=== PATIENT | male | born 1935 | race Caucasian/White ===

== ENCOUNTER 2018-03-17 09:03 | Outpatient (CLI) | payer MEDICARE ==
[2018-03-17 18:09] LABS: ALBUMIN/GLOBULIN RATIO 1.6 (1.0-2.2); BASOPHILS # (AUTO) 0.1 10^3/uL (0.0-0.1); BASOPHILS % (AUTO) 1.1 %; BILIRUBIN,TOTAL 0.7 mg/dL (0.2-1.0); CALCIUM 9.2 mg/dL (8.5-10.3); CREATININE 1.2 mg/dL (0.6-1.2); EOSINOPHILS # (AUTO) 0.3 10^3/uL (0.0-0.7); EOSINOPHILS % (AUTO) 3.6 %; HGB - HEMOGLOBIN 13.5 g/dL (14.0-18.0); LYMPHOCYTES # (AUTO) 1.6 10^3/uL (1.5-3.5); MEAN CORPUSCULAR HEMOGLOBIN 31.6 pg (27.0-31.0); MEAN CORPUSCULAR HGB CONC 32.7 g/dL (32.0-36.0); MEAN CORPUSCULAR VOLUME 96.9 fL (80.0-94.0); MEAN PLATELET VOLUME 8.5 fL (7.4-11.4); MONOCYTES # (AUTO) 0.8 10^3/uL (0.0-1.0); NEUTROPHILS # (AUTO) 4.3 10^3/uL (1.5-6.6); NEUTROPHILS % (AUTO) 61.3 %; PLT - PLATELET COUNT 165 10^3/uL (130-450); RED BLOOD COUNT 4.26 10^6/uL (4.70-6.10); TOTAL PROTEIN 6.5 g/dL (6.7-8.2); WHITE BLOOD COUNT 7.1 x10^3/uL (4.8-10.8)
== END 2018-03-17 09:04 | disposition home or self-care (01) ==
LOC: LAB.F 09:03
PROVIDERS: ATTEND Family Medicine
DX: I10 Essential (primary) hypertension (principal); Z12.5 Encounter for screening for malignant neoplasm of prostate
CPT/HCPCS: 36415; 80053; 85025; G0103; 84153

== ENCOUNTER 2018-07-30 09:39 | Emergency (ER) | payer MEDICARE ==
[2018-07-30 10:00] VITALS: BP 128/78
[2018-07-30] MEDS ORDERED: IBUPROFEN 800 MG TABLET PO STA (10:14)
--- NOTE | 2018-07-30 10:51 | XRAY Report ---
Reason: pain and swelling right foot. Procedure Date: 07/30/2018 Accession Number: [id number] / [id number] Procedure: XR - Foot 3 View RT CPT Code: FULL RESULT: EXAM: RIGHT FOOT RADIOGRAPHY EXAM DATE: 07/30/2018 10:29 AM. CLINICAL HISTORY: Pain and swelling right foot. Pain x1 year located primarily in the area of bunion. COMPARISON: None. TECHNIQUE: 3 nonweightbearing views. FINDINGS: Joints: There are severe degenerative changes at the first, second, third, and fourth tarsal phalangeal joints. There is extensive subchondral sclerosis and moderate marginal osteophyte formation at the first metatarsophalangeal joint. Subchondral cyst formation is present. There is hallux valgus angulation at the first metatarsophalangeal joint. There are mild degenerative changes of the interphalangeal joint of the great toe. There is flexion deformity of the fourth toe. Bones: Diffusely demineralized. No fracture visualized. No destructive lytic lesion. There is chronic appearing resorption or postsurgical change at the head of the third metatarsal. Soft Tissues: There is soft tissue swelling adjacent to the first metatarsophalangeal joint. No soft tissue gas. IMPRESSION: 1. Chronic-appearing severe degenerative changes at the first, second, third, and fourth metatarsophalangeal joints. There is hallux valgus alignment of the first metatarsophalangeal joint. 2. No fracture or destructive lytic lesion visualized. 3. Hallux valgus alignment at the first metatarsophalangeal joint. 4. There is soft tissue swelling adjacent to the first metatarsophalangeal joint. No soft tissue gas. RADIA
--- NOTE | 2018-07-30 11:11 | ED Physician Documentation ---
PD HPI LOWER EXT INJURY - Stated complaint Stated Complaint: RT FOOT PX/SWOLLEN - Chief complaint Chief Complaint: Ext Problem - History obtained from History obtained from: Patient, Family (spouse) - History of Present Illness PD HPI LOW EXT INJURY LOCATION: Right, Foot Timing - onset: Yesterday Worsened by: Moving, Palpating, Other (weightbearing) Associated symptoms: Swelling Similar symptoms before: Diagnosis (History of similar symptoms in the past with gout.) - Additional information Additional information: The patient is an 83-year-old male with history of gout, who presents with pain in his right great toe. The pain started yesterday and persists today. He reports difficulty weightbearing because of the pain. He has noticed swelling of his right foot. He denies any recent injury. He denies fever. His last gouty flareup was more than 10 years ago. The patient has dementia, and history is obtained mostly from his . Review of Systems Constitutional: denies: Fever Respiratory: denies: Dyspnea Skin: denies: Rash Musculoskeletal: reports: Extremity pain (Right great toe.), Pain with weight bearing Neurologic: denies: Focal weakness, Numbness PD PAST MEDICAL HISTORY - Past Medical History Past Medical History: Yes Cardiovascular: Hypertension Respiratory: Other Endocrine/Autoimmune: None GI: None : Other HEENT: Chronic hearing loss Psych: Anxiety Musculoskeletal: None, Gout Derm: Other Other Past Medical History: Bronchitis, Over active bladder - Past Surgical History Past Surgical History: Yes - Present Medications Home Medications: Ambulatory Orders Medication Instructions Recorded Confirmed Citalopram Hydrobromide 40 mg PO DAILY 12/20/15 07/30/18 [Citalopram HBr] Acetaminophen 1,000 mg PO TID PRN 12/24/15 07/30/18 Ibuprofen 200 mg PO DAILY 12/24/15 07/30/18 Mometasone/Formoterol [Dulera 100 2 puffs INH BID 12/24/15 07/30/18 Mcg/5 Mcg Inhaler] Tamsulosin [Flomax] 0.4 mg PO BID 12/24/15 07/30/18 Tolterodine Tartrate [Detrol LA] 4 mg PO DAILY 12/24/15 07/30/18 Carvedilol 1 tab PO DAILY 07/30/18 07/30/18 Naproxen [Naprosyn] 500 mg PO BID #30 tablet 07/30/18 Clindamycin HCl [Clindamycin 300MG 300 mg PO Q6H #40 capsule 07/31/18 CAP] Hydrocodone/Acetaminophen 1 - 2 each PO Q6H PRN #14 tablet 07/31/18 [Hydrocodon-Acetaminophen 5-325] - Allergies Allergies/Adverse Reactions: Allergies Allergy/AdvReac Type Severity Reaction Status Date / Time No Known Drug Allergies Allergy Verified 07/31/18 12:18 - Social History Does the pt smoke?: No Smoking Status: Never smoker Does the pt drink ETOH?: No Does the pt have substance abuse?: No - Immunizations Immunizations are current?: No Immunizations: TDAP >10years/unknown, Other immun current - POLST Patient has POLST: No PD ED PE NORMAL - Vitals Vital signs reviewed: Yes (normal) - General General: Well developed/nourished, Other (Alert, and mildly confused, consistent with dementia.) - HEENT HEENT: Atraumatic - Respiratory Respiratory: No respiratory distress - Derm Derm: No rash - Extremities Extremities: No edema, No calf tenderness / cord, Other (There is a callus at the medial aspect of the right foot at the base of the great toe. There is minimal erythema, and very slight warmth to palpation. There is tenderness to palpation, as well as tenderness with flexion and extension of the great toe. Distal neurovascular is intact.) - Neuro Neuro: Normal speech, Other (Alert, oriented 2, with mild confusion consistent with dementia.) Results - Vitals Vitals: Oxygen O2 Source Room air - Rads (name of study) Right foot. Radiology: Prelim report reviewed, EMP read contemporaneously, See rad report (Chronic appearing severe degenerative changes at the first, second, third, and fourth metatarsophalangeal joints. There is hallux valgus alignment of the first metatarsophalangeal joint. No fracture or destructive lytic lesion visualized. There is soft tissue swelling adjacent to the first me tatarsophalangeal joint. No soft tissue gas.) PD MEDICAL DECISION MAKING - ED course Complexity details: reviewed results, re-evaluated patient, considered differential, d/w patient, d/w family ED course: The patient's presentation is most consistent with gouty arthritis. X-ray reveals no evidence of acute osseous abnormality. There is a callous noted at the medial aspect of the MTP joint, but it does not appear to be infected. Treatment in the emergency department included administration of ibuprofen 800 mg orally. He is being discharged with a prescription for Naprosyn. I discussed with him and his the likely diagnosis, symptomatic treatment and outpatient follow-up, as well as potentially worrisome signs or symptoms that should prompt reevaluation in the emergency department. - Sepsis Event Vital Signs: Oxygen O2 Source Room air Departure - Departure Disposition: Home, Self Care Clinical Impression: Gout attack Qualifiers: Gout site: foot Gout etiology: unspecified cause Laterality: right Qualified Code(s): M10.9 - Gout, unspecified Condition: Stable Instructions: ED Arthritis Gout Follow-Up: Johanny Chapin PA-C [Primary Care Provider] - Prescriptions: Naproxen [Naprosyn] 500 mg PO BID #30 tablet Comments: Keep your right foot elevated as much of the time as possible. Take Naprosyn twice daily as prescribed. Follow up with your primary physician within 1-2 weeks. Call to schedule an appointment. Return to the emergency department if increasing pain, redness, swelling of your foot, or otherwise worsening symptoms. Discharge Date/Time: 07/30/18 11:23
== END 2018-07-30 11:23 | disposition home or self-care (01) ==
LOC: ED 09:39
DX: M10.9 Gout, unspecified (principal); I10 Essential (primary) hypertension; L84 Corns and callosities; M20.11 Hallux valgus (acquired), right foot
CPT/HCPCS: 73630; 99283; A9270

== ENCOUNTER 2018-07-31 12:02 | Emergency (ER) | payer MEDICARE ==
[2018-07-31] MEDS ORDERED: cefTRIAXone 1 GM VIAL IM STA (13:14)
[2018-07-31] MEDS ORDERED: HYDROcod/ACETAM 5/325 MG TABLET PO STA (13:15)
[2018-07-31] MEDS ORDERED: LIDOCAINE 1% 2 ML VIAL SUBQ ONE (13:15)
--- NOTE | 2018-07-31 13:19 | ED Physician Documentation ---
History of Present Illness - Stated complaint Stated Complaint: R FOOT WOUND - Chief complaint Chief Complaint: Ext Problem - History obtained from History obtained from: Patient, Family - History of Present Illness Timing: How many days ago (several) Pain level max: 7 Pain level now: 6 - Additonal information Additional information: Patient is an 83-year-old male who presents to the emergency department with right foot pain and swelling for the past several days. Seen here yesterday and diagnosed with possible gout. States that today a portion of the swelling ruptured and pus drained. Denies any fevers or chills. No vomiting. Has not been on any antibiotics. Worse with walking and better with rest Review of Systems Constitutional: denies: Fever, Chills Ears: denies: Ear pain Nose: denies: Rhinorrhea / runny nose, Congestion Cardiac: denies: Chest pain / pressure Respiratory: denies: Cough GI: denies: Abdominal Pain, Nausea, Vomiting, Diarrhea Skin: denies: Rash Musculoskeletal: denies: Neck pain, Back pain Neurologic: denies: Headache PD PAST MEDICAL HISTORY - Past Medical History Cardiovascular: Hypertension Respiratory: Other Endocrine/Autoimmune: None GI: None : Other HEENT: Chronic hearing loss Psych: Anxiety Musculoskeletal: None Derm: Other - Past Surgical History Past Surgical History: Yes - Present Medications Home Medications: Ambulatory Orders Medication Instructions Recorded Confirmed Citalopram Hydrobromide 40 mg PO DAILY 12/20/15 07/30/18 [Citalopram HBr] Acetaminophen 1,000 mg PO TID PRN 12/24/15 07/30/18 Ibuprofen 200 mg PO DAILY 12/24/15 07/30/18 Mometasone/Formoterol [Dulera 100 2 puffs INH BID 12/24/15 07/30/18 Mcg/5 Mcg Inhaler] Tamsulosin [Flomax] 0.4 mg PO BID 12/24/15 07/30/18 Tolterodine Tartrate [Detrol LA] 4 mg PO DAILY 12/24/15 07/30/18 Carvedilol 1 tab PO DAILY 07/30/18 07/30/18 Naproxen [Naprosyn] 500 mg PO BID #30 tablet 07/30/18 Clindamycin HCl [Clindamycin 300MG 300 mg PO Q6H #40 capsule 07/31/18 CAP] Hydrocodone/Acetaminophen 1 - 2 each PO Q6H PRN #14 tablet 07/31/18 [Hydrocodon-Acetaminophen 5-325] - Allergies Allergies/Adverse Reactions: Allergies Allergy/AdvReac Type Severity Reaction Status Date / Time No Known Drug Allergies Allergy Verified 07/31/18 12:18 - Social History Does the pt smoke?: No Smoking Status: Never smoker Does the pt drink ETOH?: No Does the pt have substance abuse?: No - Immunizations Immunizations are current?: No Immunizations: TDAP >10years/unknown - POLST Patient has POLST: No PD ED PE NORMAL - Vitals Vital signs reviewed: Yes - General General: Alert and oriented X 3, No acute distress - HEENT HEENT: Moist mucous membranes - Neck Neck: Supple, no meningeal sign - Cardiac Cardiac: RRR - Respiratory Respiratory: No respiratory distress, Clear bilaterally - Derm Derm: Warm and dry - Extremities Extremities: Other (small abscess to the medial aspect of the R MTP joint, swelling and erythema over the dorsum of the foot to the ankle. NVI) - Neuro Neuro: Alert and oriented X 3 - Psych Psych: Normal mood, Normal affect Results - Vitals Vitals: Vital Signs - 24 hr 07/31/18 07/31/18 12:07 13:41 Temperature 37 C Heart Rate 61 67 Respiratory 18 16 Rate Blood Pressure 110/62 127/67 O2 Saturation 97 99 Oxygen O2 Source Room air - Labs Labs: Microbiology 07/31/18 13:01 Wound Culture - Preliminary Abscess PD MEDICAL DECISION MAKING - ED course Complexity details: reviewed old records, considered differential, d/w patient, d/w family ED course: Patient is an 83-year-old male with what appears to be an abscess and cellulitis to the first MTP of the foot. This spontaneously drained.. Given Rocephin here and will place on clindamycin for home. No fevers. No evidence of sepsis. Given a postoperative shoe and he chose crutches to help him ambulate. Also prescribe pain medication for home. Patient and family counseled regarding signs and symptoms for which I believe and urgent re-evaluation would be necessary. Patient with good understanding of and agreement to plan and is comfortable going home at this time This document was made in part using voice recognition software. While efforts are made to proofread this document, sound alike and grammatical errors may occur. - Sepsis Event Vital Signs: Vital Signs - 24 hr 07/31/18 07/31/18 12:07 13:41 Temperature 37 C Heart Rate 61 67 Respiratory 18 16 Rate Blood Pressure 110/62 127/67 O2 Saturation 97 99 Oxygen O2 Source Room air Departure - Departure Disposition: 01 Home, Self Care Clinical Impression: Abscess Cellulitis Qualifiers: Site of cellulitis: extremity Site of cellulitis of extremity: lower extremity Laterality: right Qualified Code(s): L03.115 - Cellulitis of right lower limb Condition: Good Instructions: ED Infec Skin Cellulitis Follow-Up: Johanny Chapin PA-C [Primary Care Provider] - Within 3 Days (for wound check) Prescriptions: Clindamycin HCl [Clindamycin 300MG CAP] 300 mg PO Q6H #40 capsule Hydrocodone/Acetaminophen [Hydrocodon-Acetaminophen 5-325] 1 - 2 each PO Q6H PRN #14 tablet PRN Reason: pain Comments: Take all antibiotics until gone. Return if you worsen. This should improve over the next 24 hours. Return especially for fevers or uncontrolled pain. Do not drink alcohol or drive while on narcotic pain medicine. Note that many narcotic pain relievers also contain tylenol/acetaminophen. Please ensure that your total dose of acetaminophen from all sources does not exceed 3 grams (3000mg) per day. You may constipated on this medication, take a stool softener such as "Colace" twice a day while you are on it. Also recommend a invg-eus-yfkoljh laxative such as senna or MiraLAX any day that you do not have a bowel movement. If you received narcotic pain medication in the emergency department, do not drive or operate machinery for the next 24 hours. Discharge Date/Time: 07/31/18 13:48
[2018-07-31 13:41] VITALS: BP 127/67
== END 2018-07-31 13:48 | disposition home or self-care (01) ==
LOC: ED 12:02
DX: L02.611 Cutaneous abscess of right foot (principal); L03.115 Cellulitis of right lower limb; I10 Essential (primary) hypertension
CPT/HCPCS: 87070; 87181; 87205; 96372; 99283; A9270

== ENCOUNTER 2018-08-27 12:14 | Outpatient (CLI) | payer MEDICARE ==
--- NOTE | 2018-08-27 14:23 | XRAY Report ---
Reason: CUTANEOUS ABSCESS OF RT FOOT,CELLULITIS Procedure Date: 08/27/2018 Accession Number: [id number] / [id number] Procedure: XR - Foot 3 View RT CPT Code: FULL RESULT: EXAM: RIGHT FOOT RADIOGRAPHY EXAM DATE: 08/27/2018 12:36 PM. CLINICAL HISTORY: Cutaneous abscess of right foot, cellulitis. COMPARISON: FOOT 3 VIEW RT 07/30/2018 10:19 AM. TECHNIQUE: 3 views. FINDINGS: Redemonstration of subluxed fourth distal phalanx, unchanged in configuration interval osseous destruction at the first metatarsophalangeal joint superimposed on pre-existing advanced degenerative changes. If there is clinical concern for osteomyelitis/infection in this region, these findings are suspicious given adjacent soft tissue swelling. No acute fracture or dislocation is identified. Deformed second and fourth metatarsal heads are likely posttraumatic and unchanged in appearance. IMPRESSION: Suspicious osseous destruction in the first metatarsophalangeal joint with overlying soft tissue swelling. RADIA The above findings of periosteal reaction and osseous destruction in the region of the first metatarsophalangeal joint concerning for osteomyelitis given the clinical scenario were discussed with Johanny Chapin by Dr. Lavell Caceres at 14:20 hrs on 08/27/18.
== END 2018-08-27 12:15 | disposition home or self-care (01) ==
LOC: DI 12:14
PROVIDERS: ATTEND Physician Assistant Medical
DX: M89.8X7 Other specified disorders of bone, ankle and foot (principal); L02.611 Cutaneous abscess of right foot; L03.90 Cellulitis, unspecified

== ENCOUNTER 2018-09-07 08:30 | Inpatient (IN) | payer MEDICARE ==
[~2018-09-07 08:30] MED LIST: ACETAMINOPHEN 1,000 MG/100 ML 100 ML IV ONE; VANCOMYCIN 1 GM VIAL ONE
--- NOTE | 2018-09-07 09:21 | ANESTHESIA ---
Pre-Anesthesia VS, & Labs - Diagnosis right foot bone infection - Procedure right great toe amputation Vital Signs: Temp Pulse Resp BP Pulse Ox 36.3 C L 63 16 144/62 H 100 09/07/18 08:39 09/07/18 08:39 09/07/18 08:39 09/07/18 08:39 09/07/18 08:39 Height 5 ft 11 in Weight (kg) 95.2 kg Body Mass Index 28.7 - NPO >8 hours (except black coffee at 5:30) Home Medications and Allergies Home Medications: Ambulatory Orders Aspirin [Adult Aspirin] 81 mg PO DAILY 09/03/18 Calcium Carbonate/Vitamin D3 [Calcium 500 mg-Vit D3 600 Unit] 1 each PO BID 09/03/18 Finasteride 5 mg PO DAILY 09/03/18 Guaifenesin/Pseudoephedrne HCl [Mucinex D ER 600-60 mg Tablet] 1 each PO DAILY 09/03/18 Lactobacillus Acidophilus [Probiotic Acidophilus] 1 each PO DAILY 09/03/18 Metronidazole [Metrocream] 45 gm TP PRN PRN 09/03/18 Sulfamethox/Trimeth 800/160 [Bactrim Ds 800/160] 1 each PO Q6HR 09/03/18 Citalopram Hydrobromide [Citalopram HBr] 40 mg PO DAILY 12/20/15 Acetaminophen 1,000 mg PO TID PRN 12/24/15 Tamsulosin [Flomax] 0.4 mg PO BID 12/24/15 Tolterodine Tartrate [Detrol LA] 4 mg PO DAILY 12/24/15 Carvedilol 1 tab PO DAILY 07/30/18 Aspirin [Adult Aspirin] 81 mg PO DAILY 09/03/18 Calcium Carbonate/Vitamin D3 [Calcium 500 mg-Vit D3 600 Unit] 1 each PO BID 09/03/18 Finasteride 5 mg PO DAILY 09/03/18 Guaifenesin/Pseudoephedrne HCl [Mucinex D ER 600-60 mg Tablet] 1 each PO DAILY 09/03/18 Lactobacillus Acidophilus [Probiotic Acidophilus] 1 each PO DAILY 09/03/18 Metronidazole [Metrocream] 45 gm TP PRN PRN 09/03/18 Sulfamethox/Trimeth 800/160 [Bactrim Ds 800/160] 1 each PO Q6HR 09/03/18 Allergies/Adverse Reactions: Allergies Allergy/AdvReac Type Severity Reaction Status Date / Time plaster cast material Allergy Rash Uncoded 09/03/18 12:57 Anes History & Medical History - Anesthetic History Anesthesia Complications: reports: No previous complications - Medical History Cardiovascular: reports: Hypertension, Arrhythmia, Other Pulmonary: reports: COPD Gastrointestinal: reports: None, GERD, C.difficile, Other Urinary: reports: Renal insuffiency Neuro: reports: Dementia, Peripheral neuropathy Musculoskeletal: reports: Gout Endocrine/Autoimmune: reports: None Blood Disorders: reports: None Skin: reports: None Smoking Status: Former smoker - Surgical History Orthopedic: Other (feet) Exam General: Alert Dental: WNL, Dentures full Upper, Dentures full Lower Mouth Openin Fingerbreadth Neck Mobility: Reduced Mallampati classification: II Thyromental Distance: 4-6 cm Respiratory: Lungs clear Cardiovascular: Regular rate Mental/Cognitive Status: Alert/Oriented X3 Cognitive Status: Within normal limits Plan Anesthesia Type: Other Block (ankle block) Consent for Procedure(s) Verified and Reviewed: Yes Code Status: Attempt Resuscitation ASA classification: 3-Severe systemic disease Is this case an emergency?: No
[2018-09-07] MEDS ORDERED: LIDOCAINE 1% 50 ML MDV ONE (10:21)
[2018-09-07] MEDS ORDERED: BUPIVACAINE 0.5% PF 30 ML VIAL ONE (10:22)
--- NOTE | 2018-09-07 10:56 | XRAY Report ---
Reason: PICC line Procedure Date: 09/07/2018 Accession Number: [id number] / [id number] Procedure: XR - Chest for Line Placement CPT Code: FULL RESULT: EXAM: Chest for Line Placement DATE: 09/07/2018 10:44 AM CLINICAL HISTORY: PICC line COMPARISON: 01/01/2016 TECHNIQUE: Single view of the chest. FINDINGS: Lungs/Pleura: No focal opacities evident. No pneumothorax or pleural effusion. Mediastinum: Within exam limitations, cardiomediastinal contour is normal. Calcification in the aortic arch. Other: Right PICC line ends at the cavoatrial junction. IMPRESSION: Clear lungs. Right PICC line ends at the cavoatrial junction. RADIA
[2018-09-07] MEDS ORDERED: KETAMINE 500 MG/10 ML VIAL IVP ONE (11:00)
[2018-09-07] MEDS ORDERED: LIDOCAINE-MPF 2% 5 ML VIAL IM ONE (11:00)
[2018-09-07] MEDS ORDERED: LACTATED RINGERS 1,000 ML IV ONE ×2 (11:00→11:51)
[2018-09-07] MEDS ORDERED: fentaNYL 100 MCG/2 ML VIAL IVP ONE (11:00)
[2018-09-07] MEDS ORDERED: PROPOFOL 200 MG/20 ML VIAL IVP ONE (11:00)
[2018-09-07] MEDS ORDERED: ROPIVACAINE 0.5% PF 20 ML AMPULE EP ONE (11:00)
[2018-09-07] MEDS ORDERED: MIDAZOLAM 2 MG/2 ML VIAL IVP ONE (11:00)
[2018-09-07] MEDS ORDERED: LIDOCAINE 1% 10 ML MDV SUBQ ONE ×2 (11:49)
[2018-09-07] MEDS ORDERED: BUPIVACAINE 0.5% PF 10 ML VIAL IM ONE ×2 (11:49)
[2018-09-07] MEDS ORDERED: fentaNYL 100 MCG/2 ML VIAL ONE (12:36)
[2018-09-07] MEDS ORDERED: ACETAMINOPHEN 500 MG TABLET PO PRN (13:00)
[2018-09-07] MEDS ORDERED: METRONIDAZOLE 45 GM TP PRN (13:00)
[2018-09-07] MEDS ORDERED: ONDANSETRON 4 MG/2 ML VIAL IVP PRN (13:01)
[2018-09-07] MEDS ORDERED: ACETAMINOPHEN 325 MG TABLET PO PRN (13:01)
[2018-09-07] MEDS ORDERED: PROCHLORPERAZINE 10 MG/2 ML VIAL IVP PRN (13:01)
[2018-09-07] MEDS ORDERED: HYDROmorphone 0.5 MG/0.5 ML SYRINGE IVP PRN (13:01)
[2018-09-07] MEDS ORDERED: BISACODYL 10 MG SUPP PR PRN (13:01)
[2018-09-07] MEDS ORDERED: SENNA 8.6 MG TABLET PO PRN (13:01)
--- NOTE | 2018-09-07 13:10 | OPERATIVE REPORT ---
Operative Report - General Admit Date: 09/07/18 Procedure Date: 09/07/18 Planned Procedure: amputation right great toe Pre-Op Diagnosis: infection right great toe, and osteomyelitis Procedure Performed: I&D of right great toe MTP joint, bone resection, sesamoidectomy Post Op Diagnosis: mostly gout destruction of great toe MTPjoint hx septic joint - Procedure Note Primary Surgeon: tisha Anesthesia Provider: Juan Anesthesia Technique: Local, MAC, Regional block Estimated Blood Loss (mL): 20
[2018-09-07] MEDS ORDERED: VANCOMYCIN INJ 500 MG in SODIUM CHLORIDE 0.9% MINIBAG 100 ML IV SCH (14:00)
[2018-09-07] MEDS: HYDROcod/ACETAM 5/325 MG TABLET PO PRN ×2 (14:21→18:13)
[2018-09-07] MEDS ORDERED: VANCOMYCIN PER PHARMACY IV SCH (15:00)
[2018-09-07] MEDS ORDERED: VANCOMYCIN INJ 2 GM in SODIUM CHLORIDE 0.9% 500 ML IV ONE ×2 (15:00→18:00)
[2018-09-07] MEDS ORDERED: SODIUM CHLORIDE 0.9% IV SCH (15:00)
[2018-09-07] MEDS: LACTATED RINGERS 1,000 ML IV SCH (16:58)
--- NOTE | 2018-09-07 17:28 | OPERATIVE REPORT ---
DATE OF SERVICE: 09/07/2018 Physician: Carol Dumont MD PREOPERATIVE DIAGNOSIS: Suspected right first metatarsal osteomyelitis and septic metatarsophalangeal joint. 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 PROCEDURE PERFORMED: Right foot arthrotomy of the first tarsometatarsal joint with debridement of the joint, resection of the proximal aspect of the proximal phalanx great toe, resection of part of the first metatarsal head and exostosis, and resection of sesamoids medial and lateral. OPERATING SURGEON: Carol Dumont MD ANESTHESIA: General by Britt Martinez. INDICATIONS FOR SURGERY: Patient is an 83-year-old male who had been seen in my office with what appeared to be a worsening infection of his right foot with an open sinus in communication of the joint of the first metatarsophalangeal joint and inflammation and an MRI that suggested erosive osteomyelitis and positive culture for MRSA. I recommended in the office that the patient undergo great toe amputation, and surgery was planned for as such. The surgery plan was changed when, in surgery on dressing removal, the patient's toe appeared significantly better with less swelling and significant closure of his wound with no purulent drainage. The wound is now half the size from the time he was booked into surgery, and this changed the operative plan. FINDINGS AT SURGERY: The patient's great toe wound had diminished in size to less than 5 mm with only serous drainage. On opening the joint, there was destruction of cartilage that appeared longstanding and there were gouty collections in the bone that literally scooped out of bone and tissue. There did appear some septic-appearing synovitis around the joint, but nothing dramatic in the bone tissue, which appeared healthy once it was debrided. At tourniquet deflation, the tissues were all actively bleeding and healthy appearing. DESCRIPTION OF OPERATIVE PROCEDURE: The patient was taken to the operating room. He had been given presurgery a regional block by Britt Martinez. At surgery, he was given an ankle block with Marcaine plain 0.25%. His dressings were removed, and he was sterilely prepped and draped in standard fashion. The foot was carefully inspected, and at this point the decision was made to refrain from amputation and try to save the great toe by a joint debridement and some slightly aggressive resection of bone from the base of the proximal phalanx and the metatarsal head and resection of sesamoids to gain soft tissue mobilization for closure of the wound. This was the plan then, which was executed with a rongeur and scalpel, exposing the surfaces, removing bone fragments, sending deep fragments for culture, flushing repeatedly until adequate debridement was achieved and healthy-appearing tissue was achieved on the wound margins. At this point, the tourniquet was deflated, and there was excellent bleeding from all surfaces and closure was with interrupted 2-0 Prolene in the soft tissues, reapproximating the wound and somewhat correcting the patient's bunion position of his toe hallux valgus. The toe was then carefully dressed with layers of fluff and Cristian wrap and a posterior splint, and he was taken to the recovery room in stable condition, the postoperative plan being for admission to the hospital, IV antibiotics and careful observation of the patient's wound as he progresses to healing. This patient's status was discussed in detail with his family, who were happy that he had a debridement and not an amputation, but I explained to them that, until this is fully healed, an amputation would be a fallback procedure. TD: 09/07/2018 13:55 CHELA
[2018-09-07] MEDS ORDERED: SULFAMETH/TRIMETH DS 800/160 MG TABLET PO SCH (18:00)
[2018-09-07] MEDS: ASPIRIN 325 MG TABLET PO SCH (18:12)
[2018-09-07] MEDS: SODIUM CHLORIDE FLUSH 0.9% 10 ML SYRINGE IVP SCH (18:13)
[2018-09-07] MEDS: SODIUM CHLORIDE FLUSH 0.9% 10 ML SYRINGE IVP PRN (19:52)
[2018-09-07] MEDS: CARVEDILOL 3.125 MG TABLET PO SCH (22:46)
[2018-09-07] MEDS: CHOLECALCIFEROL 400 UNIT TABLET PO SCH (22:47)
[2018-09-07] MEDS: TAMSULOSIN 0.4 MG CAPSULE PO SCH (22:47)
[2018-09-07] MEDS: CALCIUM CARB (OYSTER SHELL) 500 MG TABLET PO SCH (23:03)
[2018-09-08] MEDS: SODIUM CHLORIDE FLUSH 0.9% 10 ML SYRINGE IVP SCH ×3 (01:30→17:14)
[2018-09-08] MEDS: ACETAMINOPHEN 1,000 MG/100 ML 100 ML IV PRN (01:38)
[2018-09-08] MEDS: SODIUM CHLORIDE FLUSH 0.9% 10 ML SYRINGE IVP PRN ×3 (04:50→20:34)
[2018-09-08] MEDS: LACTATED RINGERS 1,000 ML IV SCH ×3 (04:54→19:00)
[2018-09-08] MEDS: HYDROcod/ACETAM 5/325 MG TABLET PO PRN ×4 (05:20→19:02)
[2018-09-08 05:33] LABS: CREATININE 1.4 mg/dL (0.6-1.2)
[2018-09-08] MEDS ORDERED: ASPIRIN EC 81 MG TABLET PO SCH (09:00)
[2018-09-08] MEDS ORDERED: [UNRECOGNIZED DRUG - OTHER] PO SCH (09:00)
[2018-09-08] MEDS: ASPIRIN 325 MG TABLET PO SCH ×2 (09:17→17:14)
[2018-09-08] MEDS: TOLTERODINE LA 2 MG CAPSULE PO SCH (09:17)
[2018-09-08] MEDS: CARVEDILOL 3.125 MG TABLET PO SCH ×2 (09:18→20:31)
[2018-09-08] MEDS: TAMSULOSIN 0.4 MG CAPSULE PO SCH ×2 (09:18→20:33)
[2018-09-08] MEDS: CITALOPRAM 10 MG TABLET PO SCH (09:18)
[2018-09-08] MEDS: LACTOBACILLUS RHAMNOSUS GG CAPSULE PO SCH (09:19)
[2018-09-08] MEDS: CALCIUM CARB (OYSTER SHELL) 500 MG TABLET PO SCH ×2 (09:19→20:32)
[2018-09-08] MEDS: FINASTERIDE 5 MG TABLET PO SCH (09:20)
[2018-09-08] MEDS: CHOLECALCIFEROL 400 UNIT TABLET PO SCH ×2 (09:20→20:33)
--- NOTE | 2018-09-08 09:56 | PROVIDER PROGRESS NOTE ---
Subjective - General Admit Date: 09/07/18 Procedure Date: 09/07/18 Post Op Days: 1 Procedure Performed: left great toe I&D, debridement - Review of Systems Wound/Incisions: positive: Drainage Musculoskeletal: positive: Joint pain, Joint swelling Psychiatric: positive: No symptoms Objective - Patient Data Reviewed Vital Signs: Yes Vital Signs: Vital Signs x48h Temp Pulse Resp BP Pulse Ox 09/08/18 09:00 36.5 C 118 H 12 116/71 96 09/08/18 04:47 36.9 C 61 16 142/62 H 98 Weight: Weight 09/06/18 09/07/18 09/08/18 23:59 23:59 23:59 Weight (kg) 95.2 kg Intake & Output: Intake and Output Totals x24h 09/06/18 09/07/18 09/08/18 23:59 23:59 23:59 Intake Total 530 1810 Output Total 600 1350 Balance -70 460 - Lab Results Lab Results: 09/08/18 04:50 Other Lab Results: Lab Results x24hrs 09/08/18 Range/Units 04:50 Creatinine 1.4 H (0.6-1.2) mg/dL Estimated GFR (MDRD) 48 L (>89) - Current Medications Current Medications: Current Medications Generic Name Dose Route Start Last Admin Trade Name Freq PRN Reason Stop Dose Admin Hydrocodone Bitart/Acetaminophen 1 tab 09/07/18 13:01 09/08/18 05:20 [place] 5/325 PO 1 tab Q4HR PRN Administration PAIN Aspirin 325 mg 09/07/18 17:00 09/08/18 09:17 Jagdish PO 325 mg BIDWM TONY Administration Calcium Carbonate/Glycine 1 mg 09/07/18 21:00 09/08/18 09:19 Oysco-500 PO 500 mg BID TONY Administration Carvedilol 6.25 mg 09/07/18 21:00 09/08/18 09:18 Coreg PO 6.25 mg BID TONY Administration Cholecalciferol 400 unit 09/07/18 21:00 09/08/18 09:20 Vitamin D3 PO 400 unit BID TONY Administration Citalopram Hydrobromide 40 mg 09/08/18 09:00 09/08/18 09:18 Celexa PO 40 mg DAILY TONY Administration Finasteride 5 mg 09/08/18 09:00 09/08/18 09:20 Proscar PO 5 mg DAILY TONY Administration Hydromorphone HCl 0.5 mg 09/07/18 13:01 09/07/18 19:52 Dilaudid Inj Syringe IVP 0.5 mg Q2H PRN Administration PAIN Lactated Ringer's 1,000 mls @ 100 mls/hr 09/07/18 15:00 09/08/18 08:00 Lr IV 100 mls/hr .Q10H TONY Infusion Acetaminophen 100 mls @ 400 mls/hr 09/07/18 22:41 09/08/18 01:53 Ofirmev IV Infused Q6HR PRN Infusion PAIN Lactobacillus Rhamnosus 1 cap 09/08/18 09:00 09/08/18 09:19 Culturelle PO 1 cap DAILY TONY Administration Ondansetron HCl 4 mg 09/07/18 13:01 09/07/18 21:34 Zofran Inj IVP 4 mg Q6HR PRN Administration Nausea / Vomiting Sodium Chloride 10 ml 09/07/18 17:00 09/08/18 09:21 Normal Saline Flush 0.9% IVP 10 ml 0100,0900,1700 TONY Administration Sodium Chloride 10 ml 09/07/18 13:01 09/08/18 04:50 Normal Saline Flush 0.9% IVP 10 ml PRN PRN Administration NEEDED PER PROVIDER ORDERS Sodium Chloride 20 ml 09/08/18 04:55 09/08/18 04:50 Normal Saline Flush 0.9% IVP 20 ml PRN PRN Administration After Blood Draw Tamsulosin HCl 0.4 mg 09/07/18 21:00 09/08/18 09:18 Flomax PO 0.4 mg BID TONY Administration Tolterodine Tartrate 4 mg 09/08/18 09:00 09/08/18 09:17 Detrol La PO 4 mg DAILY TONY Administration - Physical Exam Wound/Incisions: positive: Healing well General Appearance: positive: No acute distress Extremities: positive: Joint swelling Neurologic/Psychiatric: positive: Oriented x3, CN's nml (2-12), Motor nml, Sensation nml, Mood/affect nml Impression/Plan - Problem List Problem List: POD #1 There has been mild bleeding into the post-op dressing Dressing was changed. Pt may no do transfers with PT, and use a walker. Will obtain a post-op shoe
[2018-09-08] MEDS: MULTIVITAMIN W/MINERALS TABLET PO SCH (17:14)
[2018-09-08] MEDS: VANCOMYCIN INJ 1 GM, VANCOMYCIN INJ 500 MG in SODIUM CHLORIDE 0.9% 500 ML IV SCH (17:45)
[2018-09-09] MEDS: HYDROcod/ACETAM 5/325 MG TABLET PO PRN ×3 (04:19→15:45)
[2018-09-09] MEDS: SODIUM CHLORIDE FLUSH 0.9% 10 ML SYRINGE IVP PRN (04:26)
[2018-09-09] MEDS: SODIUM CHLORIDE FLUSH 0.9% 10 ML SYRINGE IVP SCH ×3 (04:27→18:12)
[2018-09-09 04:35] LABS: BASOPHILS # (AUTO) 0.1 10^3/uL (0.0-0.1); BASOPHILS % (AUTO) 1.3 %; EOSINOPHILS # (AUTO) 0.4 10^3/uL (0.0-0.7); EOSINOPHILS % (AUTO) 6.7 %; HGB - HEMOGLOBIN 11.1 g/dL (14.0-18.0); LYMPHOCYTES # (AUTO) 1.6 10^3/uL (1.5-3.5); LYMPHOCYTES % (AUTO) 30.5 %; MEAN CORPUSCULAR HEMOGLOBIN 32.5 pg (27.0-31.0); MEAN CORPUSCULAR VOLUME 95.6 fL (80.0-94.0); MEAN PLATELET VOLUME 7.6 fL (7.4-11.4); MONOCYTES # (AUTO) 0.6 10^3/uL (0.0-1.0); MONOCYTES % (AUTO) 11.4 %; NEUTROPHILS # (AUTO) 2.7 10^3/uL (1.5-6.6); NEUTROPHILS % (AUTO) 50.1 %; PLT - PLATELET COUNT 132 10^3/uL (130-450); RED BLOOD COUNT 3.42 10^6/uL (4.70-6.10); RED CELL DISTRIBUTION WIDTH 12.5 % (12.0-15.0); WHITE BLOOD COUNT 5.3 x10^3/uL (4.8-10.8)
[2018-09-09 04:46] LABS: CREATININE 1.2 mg/dL (0.6-1.2)
--- NOTE | 2018-09-09 08:14 | PROVIDER PROGRESS NOTE ---
Subjective - General Admit Date: 09/07/18 Procedure Date: 09/07/18 Post Op Days: 2 Procedure Performed: left great toe I&D, debridement - Review of Systems Wound/Incisions: positive: Healing well General: positive: No symptoms Musculoskeletal: positive: Joint pain, Joint swelling Psychiatric: positive: No symptoms Objective - Patient Data Reviewed Vital Signs: Yes Vital Signs: Vital Signs x48h Temp Pulse Resp BP BP Pulse Ox 09/09/18 04:19 37.1 C 69 17 153/72 H 98 09/09/18 01:00 36.8 C 74 17 131/77 H 98 Weight: Weight 09/07/18 09/08/18 09/09/18 23:59 23:59 23:59 Weight (kg) 95.2 kg Intake & Output: Intake and Output Totals x24h 09/07/18 09/08/18 09/09/18 23:59 23:59 23:59 Intake Total 530 4220 Output Total 600 2775 1350 Balance -70 1445 -1350 - Lab Results Lab Results: 09/09/18 04:15 09/09/18 04:15 Other Lab Results: Lab Results x24hrs 09/09/18 09/09/18 Range/Units 04:15 04:15 WBC 5.3 (4.8-10.8) x10^3/uL RBC 3.42 L (4.70-6.10) 10^6/uL Hgb 11.1 L (14.0-18.0) g/dL Hct 32.7 L (42.0-52.0) % MCV 95.6 H (80.0-94.0) fL MCH 32.5 H (27.0-31.0) pg MCHC 34.0 (32.0-36.0) g/dL RDW 12.5 (12.0-15.0) % Plt Count 132 (130-450) 10^3/uL MPV 7.6 (7.4-11.4) fL Neut # (Auto) 2.7 (1.5-6.6) 10^3/uL Lymph # (Auto) 1.6 (1.5-3.5) 10^3/uL [place] # (Auto) 0.6 (0.0-1.0) 10^3/uL Eos # (Auto) 0.4 (0.0-0.7) 10^3/uL Baso # (Auto) 0.1 (0.0-0.1) 10^3/uL Absolute Nucleated RBC 0.00 x10^3/uL Nucleated RBC % 0.0 /100WBC Sodium 137 (135-145) mmol/L Potassium 4.6 (3.5-5.0) mmol/L Chloride 104 (101-111) mmol/L Carbon Dioxide 27 (21-32) mmol/L Anion Gap 6.0 (6-13) BUN 16 (6-20) mg/dL Creatinine 1.2 (0.6-1.2) mg/dL Estimated GFR (MDRD) 58 L (>89) Glucose 95 (70-100) mg/dL Calcium 9.0 (8.5-10.3) mg/dL - Current Medications Current Medications: Current Medications Generic Name Dose Route Start Last Admin Trade Name Freq PRN Reason Stop Dose Admin Acetaminophen 1,000 mg 09/07/18 13:00 09/08/18 14:33 Tylenol PO 1,000 mg TID PRN Administration PAIN Hydrocodone Bitart/Acetaminophen 1 tab 09/07/18 13:01 09/09/18 04:19 [place] 5/325 PO 1 tab Q4HR PRN Administration PAIN Aspirin 325 mg 09/07/18 17:00 09/08/18 17:14 Jagdish PO 325 mg BIDWM TONY Administration Calcium Carbonate/Glycine 500 mg 09/08/18 21:00 09/08/18 20:32 Oysco-500 PO 500 mg BID TONY Administration Carvedilol 6.25 mg 09/07/18 21:00 09/08/18 20:31 Coreg PO 6.25 mg BID TONY Administration Cholecalciferol 400 unit 09/07/18 21:00 09/08/18 20:33 Vitamin D3 PO 400 unit BID TONY Administration Citalopram Hydrobromide 40 mg 09/08/18 09:00 09/08/18 09:18 Celexa PO 40 mg DAILY TONY Administration Finasteride 5 mg 09/08/18 09:00 09/08/18 09:20 Proscar PO 5 mg DAILY TONY Administration Hydromorphone HCl 0.5 mg 09/07/18 13:01 09/07/18 19:52 Dilaudid Inj Syringe IVP 0.5 mg Q2H PRN Administration PAIN Lactated Ringer's 1,000 mls @ 100 mls/hr 09/07/18 15:00 09/08/18 19:00 Lr IV Not Given .Q10H TONY Acetaminophen 100 mls @ 400 mls/hr 09/07/18 22:41 09/08/18 01:53 Ofirmev IV Infused Q6HR PRN Infusion PAIN Vancomycin HCl 1 gm/ 500 mls @ 250 mls/hr 09/08/18 18:00 09/08/18 19:45 Vancomycin HCl 500 mg/ Sodium IV Infused Chloride Q24H TONY Infusion Lactobacillus Rhamnosus 1 cap 09/08/18 09:00 09/08/18 09:19 Culturelle PO 1 cap DAILY TONY Administration Multivitamins/Minerals 1 tab 09/08/18 17:00 09/08/18 17:14 Theragran M PO 1 tab DAILYWM TONY Administration Ondansetron HCl 4 mg 09/07/18 13:01 09/07/18 21:34 Zofran Inj IVP 4 mg Q6HR PRN Administration Nausea / Vomiting Sodium Chloride 10 ml 09/07/18 17:00 09/09/18 04:27 Normal Saline Flush 0.9% IVP Not Given 0100,0900,1700 TONY Sodium Chloride 10 ml 09/07/18 13:01 09/08/18 04:50 Normal Saline Flush 0.9% IVP 10 ml PRN PRN Administration NEEDED PER PROVIDER ORDERS Sodium Chloride 20 ml 09/08/18 04:55 09/09/18 04:26 Normal Saline Flush 0.9% IVP 20 ml PRN PRN Administration After Blood Draw Tamsulosin HCl 0.4 mg 09/07/18 21:00 09/08/18 20:33 Flomax PO 0.4 mg BID TONY Administration Tolterodine Tartrate 4 mg 09/08/18 09:00 09/08/18 09:17 Detrol La PO 4 mg DAILY TONY Administration - Physical Exam Wound/Incisions: positive: Healing well, Drainage (mild blood crust) Extremities: positive: Joint swelling Neurologic/Psychiatric: positive: Oriented x3, CN's nml (2-12) Impression/Plan - Problem List Problem List: Pt is responding and doing better. Culture is negative at this point. Rec. continued IV abx, dressing changes, mobilization.
[2018-09-09] MEDS: CARVEDILOL 3.125 MG TABLET PO SCH ×2 (08:30→21:02)
[2018-09-09] MEDS: MULTIVITAMIN W/MINERALS TABLET PO SCH (08:31)
[2018-09-09] MEDS: CALCIUM CARB (OYSTER SHELL) 500 MG TABLET PO SCH ×2 (08:32→21:02)
[2018-09-09] MEDS: CITALOPRAM 10 MG TABLET PO SCH (08:32)
[2018-09-09] MEDS: TOLTERODINE LA 2 MG CAPSULE PO SCH (08:33)
[2018-09-09] MEDS: FINASTERIDE 5 MG TABLET PO SCH (08:33)
[2018-09-09] MEDS: CHOLECALCIFEROL 400 UNIT TABLET PO SCH ×2 (08:34→21:02)
[2018-09-09] MEDS: TAMSULOSIN 0.4 MG CAPSULE PO SCH ×2 (08:34→21:02)
[2018-09-09] MEDS: ASPIRIN 325 MG TABLET PO SCH ×2 (08:34→18:12)
[2018-09-09] MEDS: LACTOBACILLUS RHAMNOSUS GG CAPSULE PO SCH (08:34)
--- NOTE | 2018-09-09 10:59 | MISCELLANEOUS PROVIDER NOTE ---
Miscellaneous Provider Note - - Note: Patient with CKD stage 3 with baseline cr 1.2-1.4 with GFR range of 30-59. Now on LR and receiving Vancomycin. Would be prudent to obtain a vanco trough to evaluate for toxicity. However, if renal perfusion is achieved despite vanco trough being high then patient unlikely having a ATN related to this, since patient at baseline. Would continue to monitor renal function panel.
[2018-09-09 14:27] LABS: ALBUMIN 3.4 g/dL (3.2-5.5); ALBUMIN/GLOBULIN RATIO 1.4 (1.0-2.2); BILIRUBIN,TOTAL 0.7 mg/dL (0.2-1.0); CALCIUM 8.8 mg/dL (8.5-10.3); CREATININE 1.3 mg/dL (0.6-1.2); TOTAL PROTEIN 5.9 g/dL (6.7-8.2)
[2018-09-09] MEDS: VANCOMYCIN INJ 1 GM, VANCOMYCIN INJ 500 MG in SODIUM CHLORIDE 0.9% 500 ML IV SCH (18:12)
[2018-09-10] MEDS: SODIUM CHLORIDE FLUSH 0.9% 10 ML SYRINGE IVP SCH ×2 (00:14→09:01)
[2018-09-10 08:10] VITALS: BP 148/74
[2018-09-10] MEDS: MULTIVITAMIN W/MINERALS TABLET PO SCH (08:59)
[2018-09-10] MEDS: TAMSULOSIN 0.4 MG CAPSULE PO SCH (08:59)
[2018-09-10] MEDS: CALCIUM CARB (OYSTER SHELL) 500 MG TABLET PO SCH (08:59)
[2018-09-10] MEDS: TOLTERODINE LA 2 MG CAPSULE PO SCH (08:59)
[2018-09-10] MEDS: CITALOPRAM 10 MG TABLET PO SCH (08:59)
[2018-09-10] MEDS: LACTOBACILLUS RHAMNOSUS GG CAPSULE PO SCH (09:00)
[2018-09-10] MEDS: SODIUM CHLORIDE FLUSH 0.9% 10 ML SYRINGE IVP PRN (09:00)
[2018-09-10] MEDS: FINASTERIDE 5 MG TABLET PO SCH (09:00)
[2018-09-10] MEDS: CARVEDILOL 3.125 MG TABLET PO SCH (09:00)
[2018-09-10] MEDS: CHOLECALCIFEROL 400 UNIT TABLET PO SCH (09:00)
[2018-09-10] MEDS: HYDROcod/ACETAM 5/325 MG TABLET PO PRN (09:00)
[2018-09-10] MEDS: ASPIRIN 325 MG TABLET PO SCH (09:00)
--- NOTE | 2018-09-10 10:15 | PROVIDER PROGRESS NOTE ---
Subjective - General Admit Date: 09/07/18 Procedure Date: 09/07/18 Post Op Days: 3 Procedure Performed: left great toe I&D, debridement - Review of Systems Wound/Incisions: positive: Healing well, Drainage (mild blood crust) General: positive: No symptoms Musculoskeletal: positive: Joint pain, Joint swelling Psychiatric: positive: No symptoms Objective - Patient Data Reviewed Vital Signs: Yes Vital Signs: Vital Signs x48h Temp Pulse Resp BP Pulse Ox 09/10/18 08:09 36.2 C L 72 16 148/74 H 96 Intake & Output: Intake and Output Totals x24h 09/08/18 09/09/18 09/10/18 23:59 23:59 23:59 Intake Total 4220 2250 580 Output Total 2775 2300 1350 Balance 6825 -03 -556 - Lab Results Lab Results: 09/09/18 04:15 09/09/18 14:00 Other Lab Results: Lab Results x24hrs 09/09/18 Range/Units 14:00 Sodium 135 (135-145) mmol/L Potassium 4.8 (3.5-5.0) mmol/L Chloride 102 (101-111) mmol/L Carbon Dioxide 27 (21-32) mmol/L Anion Gap 6.0 (6-13) BUN 16 (6-20) mg/dL Creatinine 1.3 H (0.6-1.2) mg/dL Estimated GFR (MDRD) 53 L (>89) Glucose 124 H (70-100) mg/dL Calcium 8.8 (8.5-10.3) mg/dL Total Bilirubin 0.7 (0.2-1.0) mg/dL AST 20 (10-42) IU/L ALT 11 (10-60) IU/L Alkaline Phosphatase 61 (42-121) IU/L Total Protein 5.9 L (6.7-8.2) g/dL Albumin 3.4 (3.2-5.5) g/dL Globulin 2.5 (2.1-4.2) g/dL Albumin/Globulin Ratio 1.4 (1.0-2.2) - Current Medications Current Medications: Current Medications Generic Name Dose Route Start Last Admin Trade Name Freq PRN Reason Stop Dose Admin Acetaminophen 1,000 mg 09/07/18 13:00 09/08/18 14:33 Tylenol PO 1,000 mg TID PRN Administration PAIN Hydrocodone Bitart/Acetaminophen 1 tab 09/07/18 13:01 09/10/18 09:00 [place] 5/325 PO 1 tab Q4HR PRN Administration PAIN Aspirin 325 mg 09/07/18 17:00 09/10/18 09:00 Jagdish PO 325 mg BIDWM TONY Administration Calcium Carbonate/Glycine 500 mg 09/08/18 21:00 09/10/18 08:59 Oysco-500 PO 500 mg BID TONY Administration Carvedilol 6.25 mg 09/07/18 21:00 09/10/18 09:00 Coreg PO 6.25 mg BID TONY Administration Cholecalciferol 400 unit 09/07/18 21:00 09/10/18 09:00 Vitamin D3 PO 400 unit BID TONY Administration Citalopram Hydrobromide 40 mg 09/08/18 09:00 09/10/18 08:59 Celexa PO 40 mg DAILY TONY Administration Finasteride 5 mg 09/08/18 09:00 09/10/18 09:00 Proscar PO 5 mg DAILY TONY Administration Hydromorphone HCl 0.5 mg 09/07/18 13:01 09/07/18 19:52 Dilaudid Inj Syringe IVP 0.5 mg Q2H PRN Administration PAIN Acetaminophen 100 mls @ 400 mls/hr 09/07/18 22:41 09/08/18 01:53 Ofirmev IV Infused Q6HR PRN Infusion PAIN Vancomycin HCl 1 gm/ 500 mls @ 250 mls/hr 09/08/18 18:00 09/09/18 21:01 Vancomycin HCl 500 mg/ Sodium IV Infused Chloride Q24H TONY Infusion Lactobacillus Rhamnosus 1 cap 09/08/18 09:00 09/10/18 09:00 Culturelle PO 1 cap DAILY TONY Administration Multivitamins/Minerals 1 tab 09/08/18 17:00 09/10/18 08:59 Theragran M PO 1 tab DAILYWM TONY Administration Ondansetron HCl 4 mg 09/07/18 13:01 09/07/18 21:34 Zofran Inj IVP 4 mg Q6HR PRN Administration Nausea / Vomiting Sodium Chloride 10 ml 09/07/18 17:00 09/10/18 09:01 Normal Saline Flush 0.9% IVP 10 ml 0100,0900,1700 TONY Administration Sodium Chloride 10 ml 09/07/18 13:01 09/08/18 04:50 Normal Saline Flush 0.9% IVP 10 ml PRN PRN Administration NEEDED PER PROVIDER ORDERS Sodium Chloride 20 ml 09/08/18 04:55 09/10/18 09:00 Normal Saline Flush 0.9% IVP 20 ml PRN PRN Administration After Blood Draw Tamsulosin HCl 0.4 mg 09/07/18 21:00 09/10/18 08:59 Flomax PO 0.4 mg BID TONY Administration Tolterodine Tartrate 4 mg 09/08/18 09:00 09/10/18 08:59 Detrol La PO 4 mg DAILY TONY Administration - Physical Exam Wound/Incisions: positive: Healing well General Appearance: positive: No acute distress Skin: positive: No rash Extremities: positive: Joint swelling (improving and with less localized tenderness and no cellulitis) Neurologic/Psychiatric: positive: Oriented x3, CN's nml (2-12) Impression/Plan - Problem List Problem List: Ortho: plan to d/c to home Will resume oral abx: Bactrim. In the face of current negative cultures. Will F.u in office in one week. He will keep dressing clean and dry.
[2018-09-10] MEDS: ACETAMINOPHEN 1,000 MG/100 ML 100 ML IV PRN (11:10)
--- NOTE | 2018-09-10 11:36 | Discharge Plan ---
Discharge Plan Disposition: 01 Home, Self Care Condition: Good Prescriptions: Sulfamethox/Trimeth 800/160 [Bactrim Ds] 1 each PO Q6HR #30 tablet Bisacodyl Supp [Dulcolax Supp] 10 mg LA Q12H PRN #10 supp PRN Reason: Constipation Walker [Ultra-Light Rollator] 1 each MC DAILY #1 each Diet: Regular Activity Restrictions: elevate foot. Limited ambulation Shower Restrictions: Yes (keep foot dry) Driving Restrictions: Yes (no drivinbg) Assistance Devices: Walker Weight Bearing: Full Weight No Smoking: If you smoke, Please STOP! Call for help. Follow-up with: Johanny Chapin PA-C [Primary Care Provider] - Carol Dumont MD [Provider Admit Priv/Credential] -
--- NOTE | 2018-09-14 18:34 | DISCHARGE SUMMARY ---
Physician: Carol Dumont MD DATE OF ADMISSION: 09/07/2018 DATE OF DISCHARGE: 09/10/2018 OPERATIVE PROCEDURE: On 09/07/2018, a right foot first metatarsophalangeal joint debridement for septic arthritis and gouty arthropathy. REASON FOR ADMISSION: Patient is an 83-year-old male who has developed an open draining wound at his right foot first metatarsophalangeal joint. 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 Recommendation initially was for toe amputation. That recommendation was advised to debridement in hopes of preserving the toe, even though the joint itself would be essentially a resection arthroplasty. The patient's history and physical exam are documented in his hospital record. HOSPITAL COURSE: Patient was admitted and underwent surgery on 09/07/2018. The procedure done was an extensive debridement of the right foot first metatarsophalangeal joint resulting in debridement of the base of the proximal phalanx and resection of the metatarsal head and wound closure. The patient postoperatively was on the floor with a postoperative shoe and a dressing in place, receiving IV antibiotics and pain medicine. The patient actually was able to be stabilized well with p.o. pain medication and showed a response to antibiotics, negative cultures, and was placed on p.o. antibiotics at the time of discharge. He was to leave his dressings in place except for a gentle dressing change with 4 x 4's daily and to be seen in the Orthopedic [facility] within 2-3 days. He was to be minimally ambulatory with a walker and always with a protective shoe in place. TD: 09/14/2018 14:20 CHELA
--- NOTE | 2018-09-14 18:38 | HISTORY & PHYSICAL EXAMINATION ---
Physician: Carol Dumont MD DATE OF ADMISSION: 09/07/2018 DATE OF DISCHARGE: 09/10/2018 ADDENDUM PROGRESS NOTE, MISCELLANEOUS TYPE ADDENDUM: This dictation applies to the patient's admission of 09/07/2018, certifying that I expect the patient to be transferred or discharged within 96 hours. TD: 09/14/2018 14:21 MTDD
== END 2018-09-10 14:03 | disposition home or self-care (01) | DRG 504 ==
LOC: SDS 08:30 → ICU 08:30 → UNDOADMIN 08:31 → ICU 08:31 → EDSTATUS 10:15 → MS2 09-09 16:52 → ICU 09-09 16:52 → UNDODISIN 09-10 14:03
PROVIDERS: ADMIT Orthopaedic Surgery; ATTEND Orthopaedic Surgery
PROC: 02HV33Z Insertion of Infusion Device into Superior Vena Cava, Percutaneous Approach (ICD-10-PCS; 2018-09-07)
PROC: 0SBM0ZZ Excision of Right Metatarsal-Phalangeal Joint, Open Approach (ICD-10-PCS; principal; 2018-09-07 09:00)
DX: M1A.9XX1 Chronic gout, unspecified, with tophus (tophi) (principal); M00.071 Staphylococcal arthritis, right ankle and foot; B95.62 Methicillin resistant Staphylococcus aureus infection as the cause of diseases classified elsewhere; H91.90 Unspecified hearing loss, unspecified ear; I12.9 Hypertensive chronic kidney disease with stage 1 through stage 4 chronic kidney disease, or unspecified chronic kidney disease; N18.3 Chronic kidney disease, stage 3 (moderate); Z79.82 Long term (current) use of aspirin; Z79.899 Other long term (current) drug therapy
CPT/HCPCS: 36415; 36569; 71045; 80048; 80053; 80202; 82565; 85025; 87070; 87205; 87640

== ENCOUNTER 2019-02-10 12:02 | Emergency (ER) | payer MEDICARE ==
--- NOTE | 2019-02-10 13:09 | XRAY Report ---
Reason: Hip pain Procedure Date: 02/10/2019 Accession Number: [id number] / [id number] Procedure: XR - Hip w/Pelvis 2-3V RT CPT Code: FULL RESULT: EXAM: RIGHT HIP RADIOGRAPHY EXAM DATE: 02/10/2019 12:38 PM. CLINICAL HISTORY: Right hip pain for 2 weeks. COMPARISON: None. TECHNIQUE: 2 views. FINDINGS: Bones: Normal. No fractures or bone lesion. Joints: Mild right greater than left hip joint space narrowing. No dislocation. Loss of L4-L5 disk space height from degenerative change. Soft Tissues: Normal. No soft tissue swelling. IMPRESSION: 1. No fracture or dislocation. 2. Bilateral hip degenerative changes. RADIA
--- NOTE | 2019-02-10 13:43 | ED Physician Documentation ---
PD HPI LOWER EXT INJURY - Stated complaint Stated Complaint: RT HIP PX - Chief complaint Chief Complaint: Ext Problem - History obtained from History obtained from: Patient - History of Present Illness PD HPI LOW EXT INJURY LOCATION: Right, Hip Type of injury: Other (worked out on a rowing machine for 2 days.) Where injury occurred: Home Timing - onset: How many weeks ago (2) Timing - duration: Weeks (2) Timing - details: Gradual onset, Still present Improved by: Rest, Immobilization Worsened by: Moving, Palpating Associated symptoms: No: Weakness, Numbness, Tingling, Swelling Contributing factors: No: Anticoagulated Similar symptoms before: Has not had sx before Recently seen: Not recently seen - Additional information Additional information: Previously well 84-year-old male was encouraged by his to begin working out as she felt he was being too much of a couch potato. He went to work out on their rowing machine and after doing this for 2 days to begin to develop pain in his right hip. He has pain in his right hip with movement of the leg and with weightbearing. If he is off of his hip and not moving his leg his pain is under control. Review of Systems Constitutional: denies: Fever Respiratory: denies: Cough GI: denies: Vomiting : denies: Dysuria Skin: denies: Rash Musculoskeletal: reports: Extremity pain, Joint pain, Pain with weight bearing. denies: Neck pain, Back pain, Joint swelling Neurologic: denies: Generalized weakness, Focal weakness, Numbness PD PAST MEDICAL HISTORY - Past Medical History Cardiovascular: Hypertension, Arrhythmia, Other Respiratory: COPD Neuro: Dementia, Peripheral neuropathy Endocrine/Autoimmune: None GI: None, GERD, C.difficile, Other : Renal insuffiency HEENT: Chronic hearing loss Psych: Anxiety Musculoskeletal: Gout Derm: None - Past Surgical History Past Surgical History: Yes Ortho: Other Derm: Skin cancer surgery - Present Medications Home Medications: Ambulatory Orders Medication Instructions Recorded Confirmed Acetaminophen 1,000 mg PO TID PRN 12/24/15 09/03/18 Tamsulosin [Flomax] 0.4 mg PO DAILY 12/24/15 09/07/18 Tolterodine Tartrate [Detrol LA] 4 mg PO DAILY 12/24/15 09/03/18 Carvedilol 6.25 mg PO BID 07/30/18 09/07/18 Aspirin [Adult Aspirin] 81 mg PO DAILY 09/03/18 09/03/18 Calcium Carbonate/Vitamin D3 1 each PO BID 09/03/18 09/03/18 [Calcium 500 mg-Vit D3 600 Unit] Finasteride 5 mg PO DAILY 09/03/18 09/03/18 Guaifenesin/Pseudoephedrne HCl 1 each PO DAILY 09/03/18 09/03/18 [Mucinex D ER 600-60 mg Tablet] Lactobacillus Acidophilus 1 each PO DAILY 09/03/18 09/03/18 [Probiotic Acidophilus] Metronidazole [Metrocream] 1 applic TOP PRN PRN 09/03/18 09/07/18 Citalopram Hydrobromide 40 mg PO DAILY 09/07/18 09/07/18 [Citalopram HBr] Bisacodyl Supp [Dulcolax Supp] 10 mg AR Q12H PRN #10 supp 09/10/18 HYDROcod/ACETAM 5/325 [[place] 5/325] 1 tab PO Q4HR PRN tablet 09/10/18 Multivitamin W/Minerals [Theragran 1 tab PO DAILYWM tablet 09/10/18 M] Sulfamethox/Trimeth 800/160 1 each PO Q6HR #30 tablet 09/10/18 [Bactrim Ds] Walker [Ultra-Light Rollator] 1 each MC DAILY #1 each 09/10/18 Hydrocodone/Acetaminophen 1 - 2 each PO Q6H PRN #14 tablet 02/10/19 [Hydrocodon-Acetaminophen 5-325] - Allergies Allergies/Adverse Reactions: Allergies Allergy/AdvReac Type Severity Reaction Status Date / Time plaster cast material Allergy Rash Uncoded 09/03/18 12:57 - Social History Does the pt smoke?: No Smoking Status: Never smoker Does the pt drink ETOH?: No Does the pt have substance abuse?: No - Immunizations Immunizations are current?: No Immunizations: TDAP >10years/unknown - POLST Patient has POLST: No PD ED PE NORMAL - Vitals Vital signs reviewed: Yes (normal ) - General General: Alert and oriented X 3, No acute distress, Well developed/nourished - HEENT HEENT: Atraumatic, PERRL - Respiratory Respiratory: No respiratory distress - Derm Derm: Normal color, Warm and dry, No rash - Extremities Extremities: No deformity, No edema, Other (There is some mild tenderness to palpation of the right trochanter and there is worse pain with any movement of the jont. The distal n/v is intact. ) - Neuro Neuro: Alert and oriented X 3, board handler 2-12 intact, No motor deficit, No sensory deficit, Normal speech Eye Opening: Spontaneous Motor: Obeys Commands Verbal: Oriented GCS Score: 15 - Psych Psych: Normal mood, Normal affect Results - Vitals Vitals: Vital Signs - 24 hr 02/10/19 12:10 Temperature 36.2 C L Heart Rate 54 L Respiratory 18 Rate Blood Pressure 104/55 L O2 Saturation 100 Oxygen O2 Source Room air - Rads (name of study) hip Radiology: Prelim report reviewed (Impression: No fracture or dislocation. Bilateral hip degenerative changes.), EMP read indepedently, See rad report PD MEDICAL DECISION MAKING - ED course Complexity details: reviewed old records, reviewed results, re-evaluated patient, considered differential, d/w patient, d/w family ED course: 84-year-old male with right hip pain after repetitive exertion likely has a bursitis. He has normal-appearing x-ray examination and really not even that much arthritis. He does have good bone structure and I do not suspect any occult fracture. He is administered dexamethasone 10 mg orally and I have asked him to follow-up with orthopedics for potential injection if this fails. Departure - Departure Disposition: 01 Home, Self Care Clinical Impression: Bursitis of hip Qualifiers: Hip bursitis location: trochanteric bursitis Laterality: right Qualified Code(s): M70.61 - Trochanteric bursitis, right hip Condition: Stable Instructions: ED Bursitis Follow-Up: Johanny Chapin PA-C [Primary Care Provider] - [facility] [Provider Group] Prescriptions: Hydrocodone/Acetaminophen [Hydrocodon-Acetaminophen 5-325] 1 - 2 each PO Q6H PRN #14 tablet PRN Reason: pain
[2019-02-10] MEDS ORDERED: DEXAMETHASONE 10 MG/ML VIAL PO STA (13:51)
[2019-02-10 14:43] VITALS: BP 106/56
== END 2019-02-10 14:41 | disposition home or self-care (01) ==
LOC: ED 12:02
DX: M70.61 Trochanteric bursitis, right hip (principal); I10 Essential (primary) hypertension; F03.90 Unspecified dementia, unspecified severity, without behavioral disturbance, psychotic disturbance, mood disturbance, and anxiety; G62.9 Polyneuropathy, unspecified; Z79.82 Long term (current) use of aspirin
CPT/HCPCS: 99283

== ENCOUNTER 2019-04-28 13:28 | Outpatient (CLI) | payer MEDICARE ==
--- NOTE | 2019-04-29 13:55 | MRI Report ---
Reason: RIGHT SCIATICA CHRONIC Procedure Date: 04/28/2019 Accession Number: [id number] / [id number] Procedure: MRI - Lumbar Spine W/O CPT Code: FULL RESULT: EXAM: MRI LUMBAR SPINE WITHOUT CONTRAST EXAM DATE: 04/28/2019 02:36 PM. CLINICAL HISTORY: RIGHT SCIATICA CHRONIC. COMPARISON: None. TECHNIQUE: Multiplanar, multisequence T1-weighted and fluid-sensitive sequences of the lumbar spine from T12 to S1 without contrast. Other: None. FINDINGS: There is straightening of the normal lumbar lordosis. The conus terminates at the inferior endplate level of L1. There are Schmorl's nodes within the endplates at T10-T11 through L5-S1. There is a mild to moderate decrease in the height of the disk at T11-T12, T12-L1, moderate to severe at L1-L2, mild to moderate at L2-L3, L3-L4, moderate to severe at L4-L5 and moderate at L5-S1. There is hypertrophy of the fat in the posterior epidural space consistent with epidural lipomatosis. There is a redundant-like appearance of the nerve roots from L1-L2 through L4-L5 suggesting the presence of high-grade stenoses. There is partial visualization of an abdominal aortic aneurysm of the lower abdominal aorta measuring 5.5 x 4.8 cm (14, 601). Recommend correlation with history. There is mild atrophy of the paraspinal musculature and psoas musculature. T12-L1: There is a small disk osteophyte complex producing a mild central canal stenosis. There is mild left and right foraminal stenosis. The facets are normal. L1-L2: There is a broad-based disk osteophyte complex abutting the sac. There is mild right facet arthropathy. There is a mild to moderate central canal stenosis. There is moderate right and left foraminal stenosis. L2-L3: There is a broad-based disk osteophyte complex which in combination with epidural lipomatosis, moderate ligamentum flavum hypertrophy and moderate to severe facet arthropathy produces a severe central canal stenosis. There is mild to moderate right and left foraminal stenosis. L3-L4: There is a broad-based disk osteophyte complex abutting the sac. There is epidural lipomatosis. There is moderate to severe bilateral facet arthropathy. There is a moderate to severe central canal stenosis. There is moderate right and left foraminal stenoses. L4-L5: There is a 1 mm retrolisthesis of L4 on L5. There is a small disk osteophyte complex abutting the sac. There is mild epidural lipomatosis. There is a moderate central canal stenosis. There is mild right and mild to moderate left facet arthropathy. There is moderate right and moderate to severe left foraminal stenosis. Recommend correlation for left L4 radiculopathy. L5-S1: There is a small disk osteophyte complex abutting the sac. There is contact of the traversing right S1 nerve root. There is at least a moderate to greater right lateral recess stenosis. Recommend correlation for any right S1 radicular symptoms. There is a mild central canal stenosis. The facets are normal. There is moderate narrowing of the neural foramina bilaterally. IMPRESSION: 1. There is epidural lipomatosis of the posterior epidural space. 2. There is a mild to moderate central canal stenosis at L1-L2 from a broad-based disk osteophyte complex. 3. There is a broad-based disk osteophyte complex at L2-L3 which in combination with epidural lipomatosis produces a severe central canal stenosis. There is moderate to severe facet arthropathy. 4. There is a broad-based disk osteophyte complex which in combination with epidural lipomatosis produces a moderate to severe central canal stenosis at L3-L4. 5. There is a small disk osteophyte complex at L4-L5 which in combination with epidural lipomatosis produces a moderate central canal stenosis. There is a moderate to severe left foraminal stenosis. Recommend correlation for left L4 radiculopathy. 6. There is a small disk osteophyte complex at L5-S1 contacting the traversing right S1 nerve root and may potentially produce right S1 radicular symptoms. There is a mild central canal stenosis. 7. There is partial visualization of an abdominal aortic aneurysm of the lower abdominal aorta measuring 5.5 x 4.8 cm (14, 601). Recommend correlation with history. Comment: The following findings are so common in adults without low back pain that while we report their presence, they must be interpreted with caution and in the context of the clinical situation. (Reference Erink et al, Spine 2001) Prevalence of findings in patients without low back pain: Disk degeneration (any evidence): 92% Disk desiccation/T2 signal loss: 83% Disk height loss: 56% Disk bulge: 64% Disk protrusion: 32% Annular tear/high intensity zone: 38% RADIA
== END 2019-04-28 13:29 | disposition home or self-care (01) ==
LOC: DI 13:28
PROVIDERS: ATTEND Orthopaedic Surgery
DX: M47.816 Spondylosis without myelopathy or radiculopathy, lumbar region (principal); M48.061 Spinal stenosis, lumbar region without neurogenic claudication; M43.16 Spondylolisthesis, lumbar region; E88.2 Lipomatosis, not elsewhere classified; M48.07 Spinal stenosis, lumbosacral region; M54.17 Radiculopathy, lumbosacral region; I71.4 Abdominal aortic aneurysm, without rupture
CPT/HCPCS: 72148

== ENCOUNTER 2019-06-22 14:09 | Outpatient (CLI) | payer MEDICARE ==
[2019-06-22 17:23] LABS: CALCIUM 9.2 mg/dL (8.5-10.3); CREATININE 1.1 mg/dL (0.6-1.2)
== END 2019-06-22 14:10 | disposition home or self-care (01) ==
LOC: LAB.S 14:09
PROVIDERS: ATTEND Internal Medicine
DX: N18.3 Chronic kidney disease, stage 3 (moderate) (principal)
CPT/HCPCS: 36415; 80048

== ENCOUNTER 2019-07-10 13:32 | Outpatient (CLI) | payer MEDICARE | END 2019-07-10 13:33 | disposition critical access hospital (66) | LOC: EMS 13:32 | PROVIDERS: ATTEND Surgery | DX: R53.1 Weakness (principal); W18.39XA Other fall on same level, initial encounter; Y92.002 Bathroom of unspecified non-institutional (private) residence as the place of occurrence of the external cause | CPT/HCPCS: A0425; A0427 ==

== ENCOUNTER 2019-07-10 14:05 | Observation (INO) | payer MEDICARE ==
[2019-07-10] MEDS ORDERED: SODIUM CHLORIDE 0.9% 1,000 ML IV ONE ×2 (14:13→15:23)
--- NOTE | 2019-07-10 14:15 | ED Physician Documentation ---
History of Present Illness - Stated complaint Stated Complaint: GLF - Chief complaint Chief Complaint: General - History obtained from History obtained from: Patient - History of Present Illness Timing: Today (This is a very pleasant 84-year-old gentleman who presents by ambulance after a fall. He is relatively healthy, he is chronic sciatica, does not take any meds or have any heart problems. Reportedly he has been weak for the last few days and today his legs gave out on him in the shower. He fell down but without injury. He is sure he did not hit his head. There is no syncope. He presents by ambulance noting some hypotension in route, on arrival he is received 500 mL of normal saline, blood pressure briefly went up and then came back down. He denies any abdominal pain. He has had some constipation. No urinary complaints. No shortness of breath or chest pain.) Review of Systems Ten Systems: 10 systems reviewed and negative Constitutional: reports: Fatigue. denies: Fever, Chills Nose: denies: Rhinorrhea / runny nose, Congestion Throat: denies: Sore throat Cardiac: denies: Chest pain / pressure, Palpitations, Pedal edema, Calf pain Respiratory: denies: Dyspnea, Cough, Hemoptysis, Wheezing GI: reports: Constipation. denies: Abdominal Pain, Nausea, Vomiting, Hematemesis, Bloody / black stool : denies: Dysuria, Frequency PD PAST MEDICAL HISTORY - Past Medical History Cardiovascular: Hypertension, Arrhythmia, Other Respiratory: COPD Neuro: Dementia, Peripheral neuropathy Endocrine/Autoimmune: None GI: None, GERD, C.difficile, Other : Renal insuffiency HEENT: Chronic hearing loss Psych: Anxiety Musculoskeletal: Gout Derm: None - Past Surgical History Past Surgical History: Yes Ortho: Other Derm: Skin cancer surgery - Present Medications Home Medications: Ambulatory Orders Medication Instructions Recorded Confirmed Acetaminophen 1,000 mg PO TID PRN 12/24/15 09/03/18 Tamsulosin [Flomax] 0.4 mg PO DAILY 12/24/15 07/10/19 Tolterodine Tartrate [Detrol LA] 4 mg PO DAILY 12/24/15 07/10/19 Carvedilol 6.25 mg PO BID 07/30/18 07/10/19 Aspirin [Adult Aspirin] 81 mg PO DAILY 09/03/18 07/10/19 Calcium Carbonate/Vitamin D3 1 each PO BID 09/03/18 07/10/19 [Calcium 500 mg-Vit D3 600 Unit] Finasteride 5 mg PO DAILY 09/03/18 07/10/19 Guaifenesin/Pseudoephedrne HCl 1 each PO DAILY 09/03/18 07/10/19 [Mucinex D ER 600-60 mg Tablet] Lactobacillus Acidophilus 1 each PO DAILY 09/03/18 07/10/19 [Probiotic Acidophilus] Metronidazole [Metrocream] 1 applic TOP PRN PRN 09/03/18 09/07/18 Citalopram Hydrobromide 40 mg PO DAILY 09/07/18 07/10/19 [Citalopram HBr] Bisacodyl Supp [Dulcolax Supp] 10 mg VT Q12H PRN #10 supp 09/10/18 HYDROcod/ACETAM 5/325 [[place] 5/325] 1 tab PO Q4HR PRN tablet 09/10/18 Multivitamin W/Minerals [Theragran 1 tab PO DAILYWM tablet 09/10/18 M] Sulfamethox/Trimeth 800/160 1 each PO Q6HR #30 tablet 09/10/18 [Bactrim Ds] Walker [Ultra-Light Rollator] 1 each MC DAILY #1 each 09/10/18 Hydrocodone/Acetaminophen 1 - 2 each PO Q6H PRN #14 tablet 02/10/19 [Hydrocodon-Acetaminophen 5-325] - Allergies Allergies/Adverse Reactions: Allergies Allergy/AdvReac Type Severity Reaction Status Date / Time plaster cast material Allergy Rash Uncoded 07/10/19 14:11 - Living Situation Living Situation: reports: With spouse/s.o. - Social History Does the pt smoke?: No Smoking Status: Never smoker Does the pt drink ETOH?: No Does the pt have substance abuse?: No - Immunizations Immunizations are current?: No Immunizations: TDAP >10years/unknown - POLST Patient has POLST: No PD ED PE NORMAL - Vitals Vital signs reviewed: Yes - General General: Alert and oriented X 3, No acute distress, Other (A little hard of hearing) - HEENT HEENT: PERRL, EOMI - Neck Neck: Supple, no meningeal sign, No bony TTP - Cardiac Cardiac: No murmur, Other (Slightly diminished heart sounds, occasional extrasystoles) - Respiratory Respiratory: No respiratory distress, Clear bilaterally - Abdomen Abdomen: Normal bowel sounds, Soft, Non tender - Back Back: No CVA TTP, No spinal TTP - Derm Derm: Normal color, Warm and dry, No rash - Extremities Extremities: No edema, No calf tenderness / cord, Other (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) - Neuro Neuro: Alert and oriented X 3, casing operator 2-12 intact, No motor deficit, No sensory deficit, Normal speech - Psych Psych: Normal mood, Normal affect Results - Vitals Vitals: Vital Signs - 24 hr 07/10/19 07/10/19 07/10/19 14:06 15:13 15:24 Heart Rate 69 67 Heart Rate [ 68 Sitting] Heart Rate [ 76 Standing] Heart Rate [ 63 Supine] Respiratory 22 19 Rate Blood Pressure 81/60 L 108/80 Blood Pressure 131/72 H [Sitting] Blood Pressure 97/48 L [Standing] Blood Pressure 133/77 H [Supine] O2 Saturation 97 99 Oxygen O2 Source Room air - EKG (time done) 1408 Rate: Rate (enter#) (67) Rhythm: NSR (occ pvc) [place]: Normal Intervals: LBBB (incomplete) QRS: Low voltage Ischemia: Non specific changes Computer interpretation: Agree with computer - Labs Labs: Laboratory Tests 07/10/19 07/10/19 07/10/19 14:26 14:26 14:26 WBC 9.1 RBC 3.76 L Hgb 12.4 L Hct 37.5 L MCV 99.7 H MCH 33.0 H MCHC 33.1 RDW 11.9 L Plt Count 162 MPV 9.6 Neut # (Auto) 6.7 H Lymph # (Auto) 1.2 L Mora # (Auto) 0.9 Eos # (Auto) 0.2 Baso # (Auto) 0.1 Absolute Nucleated RBC 0.00 Nucleated RBC % 0.0 PT 12.2 INR 1.1 Sodium 139 Potassium 4.8 Chloride 104 Carbon Dioxide 27 Anion Gap 8.0 BUN 22 H Creatinine 1.3 H Estimated GFR (MDRD) 53 L Glucose 97 Lactic Acid Calcium 8.8 Total Bilirubin 1.2 H AST 17 ALT 11 Alkaline Phosphatase 51 Troponin I High Sens Total Protein 6.4 L Albumin 3.7 Globulin 2.7 Albumin/Globulin Ratio 1.4 Lipase 22 Ethyl Alcohol < 5.0 07/10/19 07/10/19 14:26 14:26 WBC RBC Hgb Hct MCV MCH MCHC RDW Plt Count MPV Neut # (Auto) Lymph # (Auto) Mora # (Auto) Eos # (Auto) Baso # (Auto) Absolute Nucleated RBC Nucleated RBC % PT INR Sodium Potassium Chloride Carbon Dioxide Anion Gap BUN Creatinine Estimated GFR (MDRD) Glucose Lactic Acid 1.6 Calcium Total Bilirubin AST ALT Alkaline Phosphatase Troponin I High Sens 25.1 H* Total Protein Albumin Globulin Albumin/Globulin Ratio Lipase Ethyl Alcohol PD MEDICAL DECISION MAKING - ED course ED course: 84-year-old gentleman presents by ambulance for 3 days of weakness associated with fall today without injury. Per the he is been hallucinating over the last few days. No recent medication changes. He says he is not on any medications, but the confirmed that he is on several medications including antihypertensives and other things that might make him hypotensive and/or orthostatic. Blood pressure was low in route and on arrival here, it came up with IV fluids but remained orthostatic. Given his advanced age and borderline troponin will be placed in observation for gentle hydration and serial trending of his troponins. Spoke with Dr. Thornton for admission at 3:27 PM. Departure - Departure Disposition: ED Place in Observation Clinical Impression: Orthostatic hypotension, Elevated troponin, CKD (chronic kidney disease) stage 3, GFR 30-59 ml/min Condition: Stable
[2019-07-10 14:36] LABS: BASOPHILS # (AUTO) 0.1 10^3/uL (0.0-0.1); BASOPHILS % (AUTO) 0.7 %; EOSINOPHILS # (AUTO) 0.2 10^3/uL (0.0-0.7); EOSINOPHILS % (AUTO) 1.8 %; HGB - HEMOGLOBIN 12.4 g/dL (14.0-18.0); LYMPHOCYTES # (AUTO) 1.2 10^3/uL (1.5-3.5); LYMPHOCYTES % (AUTO) 13.5 %; MEAN CORPUSCULAR HGB CONC 33.1 g/dL (32.0-36.0); MEAN CORPUSCULAR VOLUME 99.7 fL (80.0-94.0); MEAN PLATELET VOLUME 9.6 fL (7.4-11.4); MONOCYTES # (AUTO) 0.9 10^3/uL (0.0-1.0); MONOCYTES % (AUTO) 9.7 %; NEUTROPHILS # (AUTO) 6.7 10^3/uL (1.5-6.6); NEUTROPHILS % (AUTO) 73.6 %; PLT - PLATELET COUNT 162 10^3/uL (130-450); RED BLOOD COUNT 3.76 10^6/uL (4.70-6.10); RED CELL DISTRIBUTION WIDTH 11.9 % (12.0-15.0); WHITE BLOOD COUNT 9.1 x10^3/uL (4.8-10.8)
[2019-07-10 14:40] LABS: INR 1.1 (0.8-1.2); PT - PROTHROMBIN TIME 12.2 secs (9.9-12.6)
[2019-07-10 14:51] LABS: ALBUMIN 3.7 g/dL (3.2-5.5); ALBUMIN/GLOBULIN RATIO 1.4 (1.0-2.2); ALKALINE PHOSPHATASE 51 IU/L (42-121); ALT ALANINE AMINOTRANSFERASE 11 IU/L (10-60); AST ASPARTATE AMINOTRANSFERASE 17 IU/L (10-42); BILIRUBIN,TOTAL 1.2 mg/dL (0.2-1.0); BUN - BLOOD UREA NITROGEN 22 mg/dL (6-20); CALCIUM 8.8 mg/dL (8.5-10.3); CARBON DIOXIDE - CO2 27 mmol/L (21-32); CHLORIDE 104 mmol/L (101-111); CREATININE 1.3 mg/dL (0.6-1.2); GFR - MDRD 53 (>89); GLUCOSE 97 mg/dL (70-100); LIPASE 22 U/L (22-51); SODIUM 139 mmol/L (135-145); TOTAL PROTEIN 6.4 g/dL (6.7-8.2)
--- NOTE | 2019-07-10 14:52 | XRAY Report ---
Reason: hypotension Procedure Date: 07/10/2019 Accession Number: [id number] / [id number] Procedure: XR - Chest 1 View X-Ray CPT Code: 66562 FULL RESULT: EXAM: CHEST RADIOGRAPHY EXAM DATE: 07/10/2019 02:39 PM. CLINICAL HISTORY: Hypotension. COMPARISON: Chest radiograph from 01/01/2016. TECHNIQUE: 1 view. FINDINGS: Lungs/Pleura: There are mild hazy bibasilar opacities, which appear slightly increased on the right since the prior examination. No pleural effusion or pneumothorax. Mediastinum: Cardiomediastinal silhouette is within normal limits. Pulmonary vasculature is unremarkable. Other: None. IMPRESSION: Hazy bibasilar opacities, slightly increased on the right. Findings are favored to represent atelectasis although early infiltrate cannot be entirely excluded. RADIA
[2019-07-10] MEDS ORDERED: ONDANSETRON 4 MG/2 ML VIAL IVP PRN (15:57)
[2019-07-10] MEDS ORDERED: HYDROcod/ACETAM 5/325 MG TABLET PO PRN (15:57)
[2019-07-10] MEDS ORDERED: ZOLPIDEM 5 MG TABLET PO PRN (15:57)
--- NOTE | 2019-07-10 16:09 | HISTORY & PHYSICAL EXAMINATION ---
Chief Complaint - Chief Complaint Chief Complaint: fall, hypotension History of Present Illness - History of Present Illness HPI Comment/Other: Mr. Wood is a pleasant 84-year-old gentleman with a PMH significant for chronic sciatica with radiculopathy which is scheduled to have surgery in three weeks, HTN, chronic hearing loss, GERD, Dementia, COPD, anxiety and depression, BPH which causes him nocturia in the night, CKD stage 3 with chronic anemia who presents by ambulance to ER for evaluation after a fall. pt's daughter and are at the pt's bedside to provide the information. Pt is reported he has been weakness for the last a few days and today his legs gave out when he was in the shower. pt fell down but without injury. he is reported he is not loss of consciousness, and no syncope and no injuries. He was noted hypotension in route by ambulance, and he was received 500 mL of normal saline. his blood pressure was briefly reported to go up and then came back down again. He denies chest pain, fever, chill, shortness of breath, abdominal pain, dysuria, hematuria. Upon examination, pt appear no respiratory distress, he has 99% O2 sat on room air, WBC is normal, although CXR could not exclude infitrate. pt did have slightly elevated Troponin level but pt denies chest pain. EKG did not reveals acute ST variety. pt was found to have orthostatic hypotension at ER. Pt is admitted in observation unit for evaluation of fall, weakness, hypotension and pre-syncope. History - Past Medical History Cardiovascular: reports: Hypertension, Arrhythmia, Other Respiratory: reports: COPD Neuro: reports: Dementia, Peripheral neuropathy Endocrine/Autoimmune: reports: None GI: reports: None, GERD, C.difficile, Other : reports: Renal insuffiency HEENT: reports: Chronic hearing loss Psych: reports: Anxiety Musculoskeletal: reports: Gout Derm: reports: None MRSA Hx?: Yes - Past Surgical History Ortho: reports: Other Derm: reports: Skin cancer surgery - Family & Social History Family History: Mother: , Father: , COPD/Emphysema Family History Comment/Other: pt report his father from COPD and his mother at age 99 yrs. he had two daughters. he is living with his at [facility]. his daughter is close to him to live. Living Situation: With spouse/s.o. Social History Notes: pt is reported to have cigarett smoking in the past. he denies alcohol and drug issue. - POLST Patient has POLST: Yes POLST Status: DNR Meds/Allgy - Home Medications Home Medications: Ambulatory Orders Medication Instructions Recorded Confirmed Acetaminophen 1,000 mg PO TID PRN 12/24/15 07/10/19 Tamsulosin [Flomax] 0.4 mg PO DAILY 12/24/15 07/10/19 Tolterodine Tartrate [Detrol LA] 4 mg PO DAILY 12/24/15 07/10/19 Carvedilol 6.25 mg PO BID 07/30/18 07/10/19 Aspirin [Adult Aspirin] 81 mg PO DAILY 09/03/18 07/10/19 Calcium Carbonate/Vitamin D3 1 each PO BID 09/03/18 07/10/19 [Calcium 500 mg-Vit D3 600 Unit] Finasteride 5 mg PO DAILY 09/03/18 07/10/19 Guaifenesin/Pseudoephedrne HCl 1 each PO DAILY 09/03/18 07/10/19 [Mucinex D ER 600-60 mg Tablet] Lactobacillus Acidophilus 1 each PO DAILY 09/03/18 07/10/19 [Probiotic Acidophilus] Citalopram Hydrobromide 40 mg PO DAILY 09/07/18 07/10/19 [Citalopram HBr] HYDROcod/ACETAM 5/325 [[place] 5/325] 1 tab PO DAILY PRN 07/10/19 07/10/19 - Allergies Allergies/Adverse Reactions: Allergies Allergy/AdvReac Type Severity Reaction Status Date / Time plaster cast material Allergy Rash Uncoded 07/10/19 14:11 Review of Systems - Constitutional Constitutional: reports: Weakness. denies: Fatigue, Fever, Chills, Malaise, Poor appetite, Diaphoresis, Night sweats, Weight gain, Weight loss - Eyes Eyes: denies: Pain, Irritation, Amaurosis, Blurred vision, Spots in vision, Field loss, Vision loss, Dipolpia - Ears, Nose & Throat Ears, Nose & Throat: reports: Hearing loss (chronic hearing loss). denies: Ear pain, Hearing aids, Tinnitus, Vertigo, Nasal pain, Nasal discharge, Nosebleeds, Nasal obstruction, Nasal congestion, Postnasal drainage, Dentures, Sore throat, Hoarseness, Mouth lesions, Bleeding gums - Cardiovascular Cariovascular: denies: Irregular heart rate, Palpitations, Chest pain, Edema, Lightheadedness, Syncope, Exertional dyspnea, Decr. exercise tolerance - Respiratory Respiratory: denies: Cough, Sputum production, Wheezing, Snoring, Hemoptysis, Orthopnea, SOB at rest, SOB with exertion, Apnea, Stridor, Pleuritic pain - Gastrointestinal Gastrointestinal: denies: Abdominal pain, Abdominal distention, Constipation, Diarrhea, Change in bowel habits, Rectal bleeding, Black stools, Bloody stools, Nausea, Vomiting, Bile emesis, Jason blood emesis, Coffee grounds emesis, Reflux/heartburn - Genitourinary Genitourinary: denies: Dysuria, Frequency, Urgency, Hematuria, Incontinence, Flank pain, Nocturia, Urethral discharge - Musculoskeletal Musculoskeletal: reports: Back pain, Limited range of motion. denies: Muscle pain, Muscle aches, Stiffness, Muscle weakness, Gout, Joint pain, Joint swelling, Other - Integumentary Integumentary: denies: Rash, Pruritis, Lesions, Dryness, Lumps, Acne, Pigment changes, Nail changes - Neurological Neurological: denies: General weakness, Focal weakness, Headache, Dizziness, Numbness, Memory problems, Pre-existing deficit, Abnormal gait, Seizures, Incoordination, Slurred speech - Psychiatric Psychiatric: denies: Depression, Anxiety, Suicidal, Delusions, Hallucinations, Homicidal - Endocrine Endocrine: denies: Polyuria, Polydypsia, Polyphagia, Intolerance to cold, Intolerance to heat - Hematologic/Lymphatic Hematologic/Lymphatic: denies: Anemia, Bruising, Petechiae, Blood clots, Lymphadenopathy, Bleeding tendencies, Recurrent infections Prior Level of Functionality: dependent on his and daughter to take care of, because of chronic back pain. Exam - Vital Signs Reviewed Vital Signs: Yes Vital Signs: Vital Signs x48h Pulse Pulse Pulse Pulse Resp BP BP 07/10/19 15:24 68 76 63 131/72 H 07/10/19 15:13 67 19 108/80 07/10/19 14:06 69 22 81/60 L BP BP Pulse Ox 07/10/19 15:24 97/48 L 133/77 H 07/10/19 15:13 99 07/10/19 14:06 97 - Physical Exam General Appearance: positive: No acute distress, Alert. negative: Lethargic Eyes Bilateral: positive: Normal inspection, PERRL, No lid inflammation, Conjunctivae nml ENT: positive: ENT inspection nml, Pharynx nml, No signs of dehydration. negative: Purulent nasal drainage, Pharyngeal erythema, Oral lesions Neck: positive: Nml inspection, Thyroid nml, No JVD, Trachea midline. negative: Thyromegaly, Lymphadenopathy (R), Lymphadenopathy (L), Stiff neck, Swelling/bruising, Tracheal deviation Respiratory: positive: Chest non-tender, No respiratory distress. negative: Wheezes, Rales, Rhonchi Cardiovascular: positive: Regular rate & rhythm, No murmur, No gallop. negative: Irregularly irregular, Extrasystoles, Tachycardia, Bradycardia, JVD p resent, Systolic murmur, Diastolic murmur Peripheral Pulses: positive: 2+ Abdomen: positive: Non-tender, No organomegaly, Nml bowel sounds, No distention. negative: Tenderness, Guarding, Rebound Back: positive: Nml inspection. negative: CVA tenderness (R), CVA tenderness (L) Skin: positive: Color nml, No rash, Warm, Dry. negative: Cyanosis, Diaphoresis, Pallor Extremities: positive: Non-tender, Full ROM, Nml appearance. negative: Calf tenderness, Joint swelling, Trisha's sign/cords Neurologic/Psychiatric: positive: Sensation nml, Mood/affect nml. negative: Weakness, Sensory loss, Facial droop, Slurred/abnml speech, Depressed mood/affect Sepsis Event Note (H) - Evaluation Current Stage of Sepsis: Ruled out Conclusion/Plan - Problem List (1) Fall Conclusion/Plan: pt is reported to have a fall but without injury. possible etiology include: hypotension, dehydration, weakness. consult with PT/OT treat underline of hypotension and dehydration fall precaution (2) Orthostatic hypotension Conclusion/Plan: pt present orthostatic hypotension. The etiology can include vasovagal, dehydration, or over-medicated BP medications. Pt had three meds recently prescribed for his nocturia. continue Orthostatic monitor pt hold his two nocturia meds, and continue Flomax tele and vital monitor pt check ECHO, ECHO is also for his pre-syncope evaluation. (3) Elevated troponin level Conclusion/Plan: pt has small elevated Troponin in high sensitivity Troponin test. pt denies chest pain, EKG did not indicate acute ST variety. pt is hemodynamic stable. But pt has hypotension when he was found in ambulance. It can also be happened by mild demanded small ischemia change. continue Troponin serial continue home aspirin monitor on tele and vital (4) CKD (chronic kidney disease) stage 3, GFR 30-59 ml/min Conclusion/Plan: pt has slight elevated Creatinine. keep pt hydration with IVF of NS but precaution of Fluid overload (5) BPH associated with nocturia Conclusion/Plan: we will continue Flomax and hold other two meds, Proscar and Detrol LA (6) Anxiety Conclusion/Plan: stable, continue home meds Citalopram (7) COPD (chronic obstructive pulmonary disease) Conclusion/Plan: pt is stable. pt has no respiratory distress now. Pt has 99% O2 sats on room a ir. order Albuterol and Duoneb PRN (8) Dementia Conclusion/Plan: stable, pt has no home meds for. continue support (9) Do not intubate, cardiopulmonary resuscitation (CPR)-only code status Conclusion/Plan: pt state he choose DNR/DNI. pt also had POLST. pt's and daughter agree the DNR code. - Lab Results Fish Bones: 07/10/19 14:26 07/10/19 14:26 Core Measures - Anticipated LOS I expect patient to be DC'd or transferred within 96 hours.: Yes - DVT/VTE - Prophylaxis VTE/DVT Device ordered at admit?: Yes VTE/DVT Prophylaxis med ordered at admit?: Yes
[2019-07-10] MEDS: PANTOPRAZOLE 40 MG TABLET PO SCH (16:26)
[2019-07-10] MEDS ORDERED: ALBUTEROL NEB 2.5 MG/3 ML INH PRN (16:27)
[2019-07-10] MEDS ORDERED: IPRATROPIUM/ALBUTEROL 3 ML NEB INH PRN (16:27)
[2019-07-10] MEDS: SODIUM CHLORIDE FLUSH 0.9% 10 ML SYRINGE IVP SCH (16:59)
[2019-07-10] MEDS: SODIUM CHLORIDE 0.9% 1,000 ML IV SCH (17:02)
[2019-07-10] MEDS: ASPIRIN EC 81 MG TABLET PO SCH (17:46)
[2019-07-10 18:22] LABS: BILIRUBIN,URINE NEGATIVE (NEGATIVE); GLUCOSE, URINE (UA) NEGATIVE (NEGATIVE); KETONES,URINE (UA) NEGATIVE (NEGATIVE); LEUKOCYTE ESTERASE, URINE NEGATIVE (NEGATIVE); NITRITE,URINE NEGATIVE (NEGATIVE); OCCULT BLOOD,URINE NEGATIVE (NEGATIVE); PH,URINE 5.5 PH (5.0-7.5); PROTEIN,URINE NEGATIVE (NEGATIVE); UROBILINOGEN,URINE 0.2 (NORMAL) E.U./dL (NORMAL)
[2019-07-10 18:24] LABS: CLARITY,URINE CLEAR (CLEAR)
[2019-07-10] MEDS: CARVEDILOL 3.125 MG TABLET PO SCH (20:24)
[2019-07-10] MEDS: ACETAMINOPHEN 325 MG TABLET PO PRN (21:59)
[2019-07-11] MEDS: SODIUM CHLORIDE FLUSH 0.9% 10 ML SYRINGE IVP SCH ×4 (00:41→23:40)
[2019-07-11 02:32] LABS: BASOPHILS % (AUTO) 0.6 %; EOSINOPHILS # (AUTO) 0.2 10^3/uL (0.0-0.7); EOSINOPHILS % (AUTO) 3.2 %; HGB - HEMOGLOBIN 11.8 g/dL (14.0-18.0); LYMPHOCYTES # (AUTO) 1.6 10^3/uL (1.5-3.5); LYMPHOCYTES % (AUTO) 23.8 %; MEAN CORPUSCULAR HEMOGLOBIN 32.9 pg (27.0-31.0); MEAN CORPUSCULAR HGB CONC 33.3 g/dL (32.0-36.0); MEAN CORPUSCULAR VOLUME 98.6 fL (80.0-94.0); MEAN PLATELET VOLUME 9.8 fL (7.4-11.4); PLT - PLATELET COUNT 148 10^3/uL (130-450); RED BLOOD COUNT 3.59 10^6/uL (4.70-6.10); RED CELL DISTRIBUTION WIDTH 11.9 % (12.0-15.0); WHITE BLOOD COUNT 6.9 x10^3/uL (4.8-10.8)
[2019-07-11 02:41] LABS: ALBUMIN 3.5 g/dL (3.2-5.5); ALBUMIN/GLOBULIN RATIO 1.4 (1.0-2.2); BILIRUBIN,TOTAL 0.9 mg/dL (0.2-1.0); CALCIUM 8.6 mg/dL (8.5-10.3); CREATININE 1.2 mg/dL (0.6-1.2); MAGNESIUM 2.3 mg/dL (1.7-2.8)
[2019-07-11] MEDS: SODIUM CHLORIDE 0.9% 1,000 ML IV SCH (04:50)
[2019-07-11] MEDS: CARVEDILOL 3.125 MG TABLET PO SCH ×3 (06:22→20:20)
[2019-07-11] MEDS: PANTOPRAZOLE 40 MG TABLET PO SCH (06:23)
[2019-07-11] MEDS ORDERED: METOPROLOL 5 MG/5 ML VIAL IVP PRN (07:51)
[2019-07-11] MEDS: LEVALBUTEROL 1.25 MG/3 ML NEB INH PRN ×2 (07:56→19:32)
[2019-07-11] MEDS ORDERED: methylPREDNISolone SUCCINATE 40 MG/ML VIAL IVP SCH (08:00)
--- NOTE | 2019-07-11 08:23 | XRAY Report ---
Reason: SOB, tachycardia Procedure Date: 07/11/2019 Accession Number: [id number] / [id number] Procedure: XR - Chest 1 View X-Ray CPT Code: 98169 FULL RESULT: EXAM: CHEST RADIOGRAPHY EXAM DATE: 07/11/2019 08:13 AM. CLINICAL HISTORY: Shortness of breath, tachycardia. COMPARISON: CHEST 1 VIEW 07/10/2019 2:25 PM. TECHNIQUE: 1 view. FINDINGS: Lungs/Pleura: Small right basilar pulmonary opacities again noted, unchanged, likely small dependent atelectasis. No new focal opacities evident. No pleural effusion. No pneumothorax. Mediastinum: Within exam limitations, the cardiomediastinal contour is normal. Other: None. IMPRESSION: Small right basilar opacity, similar to the prior exam, likely small dependent atelectasis. Otherwise, negative for new pulmonary opacity, airspace infiltrate or congestive heart failure. RADIA
[2019-07-11] MEDS: ASPIRIN EC 81 MG TABLET PO SCH (08:38)
[2019-07-11] MEDS: TAMSULOSIN 0.4 MG CAPSULE PO SCH (08:39)
[2019-07-11] MEDS: CITALOPRAM HYDROBROMIDE 20 MG TABLET PO SCH (08:41)
[2019-07-11] MEDS: ENOXAPARIN 40 MG/0.4 ML SYRINGE SUBQ SCH (08:42)
[2019-07-11] MEDS: guaiFENesin 600 MG TABLET PO SCH ×2 (08:42→21:12)
[2019-07-11] MEDS: LACTOBACILLUS RHAMNOSUS GG CAPSULE PO SCH (08:42)
[2019-07-11] MEDS: MUCINEX D PO SCH (08:43)
[2019-07-11] MEDS: POLYETHYLENE GLYCOL 3350 17 GM PACKET PO SCH (08:44)
[2019-07-11] MEDS ORDERED: ASPIRIN EC 81 MG TABLET PO SCH (09:00)
[2019-07-11] MEDS ORDERED: IPRATROPIUM 0.2 MG/ML NEB INH SCH (11:00)
[2019-07-11] MEDS: HYDROcod/ACETAM 5/325 MG TABLET PO PRN (11:20)
--- NOTE | 2019-07-11 11:50 | PROVIDER PROGRESS NOTE ---
Subjective - Prog Note Date Prog Note Date: 07/11/19 - Subjective Pt reports feeling: No change Subjective: Pt was reported to have HR around 120. pt denies palpitation, chest pain, sweating, shortness of breath. pt is asymptomatic. new EKG reveals SVT at HR 112. pt has hx of SVT before. pt report he missed his medication Coreg on yesterday. Current Medications - Current Medications Current Medications: Active Medications Acetaminophen (Tylenol) 650 mg PO Q4HR PRN PRN Reason: Pain 1 to 4 Last Admin: 07/10/19 21:59 Dose: 650 mg Hydrocodone Bitart/Acetaminophen ([place] 5/325) 1 tab PO DAILY PRN PRN Reason: PAIN Last Admin: 07/11/19 11:20 Dose: 1 tab Aspirin (Ecotrin) 81 mg PO DAILY [facility] Last Admin: 07/11/19 08:38 Dose: 81 mg Carvedilol (Coreg) 6.25 mg PO BID [facility] Last Admin: 07/11/19 06:22 Dose: 6.25 mg Citalopram Hydrobromide (Celexa) 40 mg PO DAILY [facility] Last Admin: 07/11/19 08:41 Dose: 40 mg Enoxaparin Sodium (Lovenox) 40 mg SUBQ DAILY [facility] Last Admin: 07/11/19 08:42 Dose: 40 mg Guaifenesin (Mucinex) 600 mg PO BID [facility] Last Admin: 07/11/19 08:42 Dose: 600 mg Sodium Chloride (Normal Saline 0.9%) 1,000 mls @ 75 mls/hr IV .[id number] [facility] Stop: 07/11/19 18:39 Last Admin: 07/11/19 04:50 Dose: 75 mls/hr Ipratropium [place] (Atrovent) 0.5 mg INH RTQ4H [facility] Lactobacillus Rhamnosus (Culturelle) 1 cap PO DAILY [facility] Last Admin: 07/11/19 08:42 Dose: 1 cap Levalbuterol HCl (Xopenex) 1.25 mg INH Q4H PRN PRN Reason: Shortness of Air/Wheezing Last Admin: 07/11/19 07:56 Dose: 1.25 mg Methylprednisolone (Solu-Medrol (40mg Vial)) 30 mg IVP TID [facility] Metoprolol Tartrate (Lopressor Inj) 5 mg IVP Q6H PRN PRN Reason: Hypertensive Emergency Last Admin: 07/11/19 08:45 Dose: 5 mg Ondansetron HCl (Zofran Inj) 4 mg IVP Q6HR PRN PRN Reason: Nausea / Vomiting Pantoprazole Sodium (Protonix) 40 mg PO QDAC [facility] Last Admin: 07/11/19 06:23 Dose: 40 mg Mucinex D Er 600-60 (Mg Tablet) 1 each PO DAILY [facility] Last Admin: 07/11/19 08:43 Dose: Not Given Polyethylene Glycol (Miralax) 17 gm PO DAILY [facility] Last Admin: 07/11/19 08:44 Dose: 17 gm Sodium Chloride (Normal Saline Flush 0.9%) 10 ml IVP PRN PRN PRN Reason: NEEDED PER PROVIDER ORDERS Sodium Chloride (Normal Saline Flush 0.9%) 10 ml IVP 0100,0900,1700 [facility] Last Admin: 07/11/19 08:43 Dose: Not Given Tamsulosin HCl (Flomax) 0.4 mg PO DAILY [facility] Last Admin: 07/11/19 08:39 Dose: 0.4 mg Zolpidem Tartrate (Ambien) 5 mg PO QPM PRN PRN Reason: Insomnia Acetaminophen 1,000 mg PO TID PRN 12/24/15 Tamsulosin [Flomax] 0.4 mg PO DAILY 12/24/15 Tolterodine Tartrate [Detrol LA] 4 mg PO DAILY 12/24/15 Carvedilol 6.25 mg PO BID 07/30/18 Aspirin [Adult Aspirin] 81 mg PO DAILY 09/03/18 Calcium Carbonate/Vitamin D3 [Calcium 500 mg-Vit D3 600 Unit] 1 each PO BID 08/16 08/03 Finasteride 5 mg PO DAILY 09/03/18 Guaifenesin/Pseudoephedrne HCl [Mucinex D ER 600-60 mg Tablet] 1 each PO DAILY 09/03/18 Lactobacillus Acidophilus [Probiotic Acidophilus] 1 each PO DAILY 09/03/18 Citalopram Hydrobromide [Citalopram HBr] 40 mg PO DAILY 09/07/18 HYDROcod/ACETAM 5/325 [[place] 5/325] 1 tab PO DAILY PRN 07/10/19 Objective - Vital Signs/Intake & Output Reviewed Vital Signs: Yes Vital Signs: Vital Signs x48h Temp Pulse Pulse Pulse Pulse Pulse Resp 07/11/19 11:22 36.6 C 112 H 17 07/11/19 09:05 120 H 07/11/19 09:00 119 H 119 H 110 H 117 H 07/11/19 08:55 117 H 07/11/19 08:45 07/11/19 07:56 120 H 22 07/11/19 07:08 36.8 C 125 H 16 07/11/19 05:58 36.6 C 125 H 18 07/11/19 04:20 36.6 C 125 H 18 BP BP BP BP BP BP Pulse Ox 07/11/19 11:22 117/72 98 07/11/19 09:05 118/76 07/11/19 09:00 120/74 132/91 H 90/60 130/87 H 07/11/19 08:55 110/70 07/11/19 08:45 119/81 H 07/11/19 07:56 07/11/19 07:08 120/79 95 07/11/19 05:58 98 07/11/19 04:20 133/89 H 98 Intake & Output: Intake & Output 07/08/19 07/09/19 07/10/19 07/11/19 23:59 23:59 23:59 23:59 Intake Total 1827 1605 Output Total 400 1175 Balance 1427 430 - Objective General Appearance: positive: No acute distress, Alert. negative: Lethargic Eyes Bilateral: positive: Normal inspection, PERRL, No lid inflammation, Conjunctivae nml ENT: positive: ENT inspection nml, Pharynx nml, No signs of dehydration. negative: Purulent nasal drainage, Pharyngeal erythema, Oral lesions Neck: positive: Nml inspection, Thyroid nml, No JVD, Trachea midline. negative: Thyromegaly, Lymphadenopathy (R), Lymphadenopathy (L), Stiff neck, Swelling/bruising, Tracheal deviation Respiratory: positive: Chest non-tender, No respiratory distress, Wheezes. negative: Breath sounds nml, Rales, Rhonchi Cardiovascular: positive: Regular rate & rhythm, No murmur, No gallop, Tachycardia. negative: Irregularly irregular, Extrasystoles, Bradycardia, JVD present, Systolic murmur, Diastolic murmur Peripheral Pulses: 2+ Radial (R), 2+ Radial (L), 2+ Dorsalis pedis (R), 2+ Dorsalis pedis (L) Abdomen: positive: Non-tender, No organomegaly, Nml bowel sounds, No distention. negative: Tenderness, Guarding, Rebound Back: positive: Nml inspection. negative: CVA tenderness (R), CVA tenderness (L) Skin: positive: Color nml, No rash, Warm, Dry. negative: Cyanosis, Diaphoresis, Pallor Extremities: positive: Non-tender, Full ROM, Nml appearance. negative: Calf tenderness, Joint swelling, Trisha's sign/cords Neurologic/Psychiatric: positive: Oriented x3, Sensation nml, Mood/affect nml. negative: Weakness, Sensory loss, Facial droop, Slurred/abnml speech, Depressed mood/affect - Lab Results Fish Bones: 07/11/19 02:21 07/11/19 02:21 Other Labs: Lab Results x24hrs 07/11/19 07/11/19 07/11/19 Range/Units 10:15 02:21 02:21 WBC 6.9 (4.8-10.8) x10^3/uL RBC 3.59 L (4.70-6.10) 10^6/uL Hgb 11.8 L (14.0-18.0) g/dL Hct 35.4 L (42.0-52.0) % MCV 98.6 H (80.0-94.0) fL MCH 32.9 H (27.0-31.0) pg MCHC 33.3 (32.0-36.0) g/dL RDW 11.9 L (12.0-15.0) % Plt Count 148 (130-450) 10^3/uL MPV 9.8 (7.4-11.4) fL Neut # (Auto) 4.0 (1.5-6.6) 10^3/uL Lymph # (Auto) 1.6 (1.5-3.5) 10^3/uL [place] # (Auto) 1.0 (0.0-1.0) 10^3/uL Eos # (Auto) 0.2 (0.0-0.7) 10^3/uL Baso # (Auto) 0.0 (0.0-0.1) 10^3/uL Absolute Nucleated RBC 0.00 x10^3/uL Nucleated RBC % 0.0 /100WBC PT (9.9-12.6) secs INR (0.8-1.2) Sodium 139 (135-145) mmol/L Potassium 4.2 (3.5-5.0) mmol/L Chloride 105 (101-111) mmol/L Carbon Dioxide 26 (21-32) mmol/L Anion Gap 8.0 (6-13) BUN 22 H (6-20) mg/dL Creatinine 1.2 (0.6-1.2) mg/dL Estimated GFR (MDRD) 58 L (>89) Glucose 92 (70-100) mg/dL Lactic Acid (0.5-2.2) mmol/L Calcium 8.6 (8.5-10.3) mg/dL Magnesium 2.3 (1.7-2.8) mg/dL Total Bilirubin 0.9 (0.2-1.0) mg/dL AST 18 (10-42) IU/L ALT 12 (10-60) IU/L Alkaline Phosphatase 51 (42-121) IU/L Troponin I High Sens 19.0 (2.3-19.7) pg/mL Total Protein 6.0 L (6.7-8.2) g/dL Albumin 3.5 (3.2-5.5) g/dL Globulin 2.5 (2.1-4.2) g/dL Albumin/Globulin Ratio 1.4 (1.0-2.2) Lipase (22-51) U/L Urine Color Urine Clarity (CLEAR) Urine pH (5.0-7.5) PH Ur Specific [place] (1.002-1.030) Urine Protein (NEGATIVE) mg/dL Urine Glucose (UA) (NEGATIVE) mg/dL Urine Ketones (NEGATIVE) mg/dL Urine Occult Blood (NEGATIVE) Urine Nitrite (NEGATIVE) Urine Bilirubin (NEGATIVE) Urine Urobilinogen (NORMAL) E.U./dL Ur Leukocyte Esterase (NEGATIVE) Ur Microscopic Review Urine Culture Comments Ethyl Alcohol mg/dL 07/11/19 07/10/19 07/10/19 Range/Units 02:21 20:03 17:50 WBC (4.8-10.8) x10^3/uL RBC (4.70-6.10) 10^6/uL Hgb (14.0-18.0) g/dL Hct (42.0-52.0) % MCV (80.0-94.0) fL MCH (27.0-31.0) pg MCHC (32.0-36.0) g/dL RDW (12.0-15.0) % Plt Count (130-450) 10^3/uL MPV (7.4-11.4) fL Neut # (Auto) (1.5-6.6) 10^3/uL Lymph # (Auto) (1.5-3.5) 10^3/uL [place] # (Auto) (0.0-1.0) 10^3/uL Eos # (Auto) (0.0-0.7) 10^3/uL Baso # (Auto) (0.0-0.1) 10^3/uL Absolute Nucleated RBC x10^3/uL Nucleated RBC % /100WBC PT (9.9-12.6) secs INR (0.8-1.2) Sodium (135-145) mmol/L Potassium (3.5-5.0) mmol/L Chloride (101-111) mmol/L Carbon Dioxide (21-32) mmol/L Anion Gap (6-13) BUN (6-20) mg/dL Creatinine (0.6-1.2) mg/dL Estimated GFR (MDRD) (>89) Glucose (70-100) mg/dL Lactic Acid (0.5-2.2) mmol/L Calcium (8.5-10.3) mg/dL Magnesium (1.7-2.8) mg/dL Total Bilirubin (0.2-1.0) mg/dL AST (10-42) IU/L ALT (10-60) IU/L Alkaline Phosphatase (42-121) IU/L Troponin I High Sens 23.3 H* 26.4 H* (2.3-19.7) pg/mL Total Protein (6.7-8.2) g/dL Albumin (3.2-5.5) g/dL Globulin (2.1-4.2) g/dL Albumin/Globulin Ratio (1.0-2.2) Lipase (22-51) U/L Urine Color YELLOW Urine Clarity CLEAR (CLEAR) Urine pH 5.5 (5.0-7.5) PH Ur Specific [place] 1.010 (1.002-1.030) Urine Protein NEGATIVE (NEGATIVE) mg/dL Urine Glucose (UA) NEGATIVE (NEGATIVE) mg/dL Urine Ketones NEGATIVE (NEGATIVE) mg/dL Urine Occult Blood NEGATIVE (NEGATIVE) Urine Nitrite NEGATIVE (NEGATIVE) Urine Bilirubin NEGATIVE (NEGATIVE) Urine Urobilinogen 0.2 (NORMAL) (NORMAL) E.U./dL Ur Leukocyte Esterase NEGATIVE (NEGATIVE) Ur Microscopic Review NOT INDICATED Urine Culture Comments NOT INDICATED Ethyl Alcohol mg/dL 07/10/19 07/10/19 07/10/19 Range/Units 14:26 14:26 14:26 WBC (4.8-10.8) x10^3/uL RBC (4.70-6.10) 10^6/uL Hgb (14.0-18.0) g/dL Hct (42.0-52.0) % MCV (80.0-94.0) fL MCH (27.0-31.0) pg MCHC (32.0-36.0) g/dL RDW (12.0-15.0) % Plt Count (130-450) 10^3/uL MPV (7.4-11.4) fL Neut # (Auto) (1.5-6.6) 10^3/uL Lymph # (Auto) (1.5-3.5) 10^3/uL [place] # (Auto) (0.0-1.0) 10^3/uL Eos # (Auto) (0.0-0.7) 10^3/uL Baso # (Auto) (0.0-0.1) 10^3/uL Absolute Nucleated RBC x10^3/uL Nucleated RBC % /100WBC PT (9.9-12.6) secs INR (0.8-1.2) Sodium 139 (135-145) mmol/L Potassium 4.8 (3.5-5.0) mmol/L Chloride 104 (101-111) mmol/L Carbon Dioxide 27 (21-32) mmol/L Anion Gap 8.0 (6-13) BUN 22 H (6-20) mg/dL Creatinine 1.3 H (0.6-1.2) mg/dL Estimated GFR (MDRD) 53 L (>89) Glucose 97 (70-100) mg/dL Lactic Acid 1.6 (0.5-2.2) mmol/L Calcium 8.8 (8.5-10.3) mg/dL Magnesium (1.7-2.8) mg/dL Total Bilirubin 1.2 H (0.2-1.0) mg/dL AST 17 (10-42) IU/L ALT 11 (10-60) IU/L Alkaline Phosphatase 51 (42-121) IU/L Troponin I High Sens 25.1 H* (2.3-19.7) pg/mL Total Protein 6.4 L (6.7-8.2) g/dL Albumin 3.7 (3.2-5.5) g/dL Globulin 2.7 (2.1-4.2) g/dL Albumin/Globulin Ratio 1.4 (1.0-2.2) Lipase 22 (22-51) U/L Urine Color Urine Clarity (CLEAR) Urine pH (5.0-7.5) PH Ur Specific [place] (1.002-1.030) Urine Protein (NEGATIVE) mg/dL Urine Glucose (UA) (NEGATIVE) mg/dL Urine Ketones (NEGATIVE) mg/dL Urine Occult Blood (NEGATIVE) Urine Nitrite (NEGATIVE) Urine Bilirubin (NEGATIVE) Urine Urobilinogen (NORMAL) E.U./dL Ur Leukocyte Esterase (NEGATIVE) Ur Microscopic Review Urine Culture Comments Ethyl Alcohol < 5.0 mg/dL 07/10/19 07/10/19 Range/Units 14:26 14:26 WBC 9.1 (4.8-10.8) x10^3/uL RBC 3.76 L (4.70-6.10) 10^6/uL Hgb 12.4 L (14.0-18.0) g/dL Hct 37.5 L (42.0-52.0) % MCV 99.7 H (80.0-94.0) fL MCH 33.0 H (27.0-31.0) pg MCHC 33.1 (32.0-36.0) g/dL RDW 11.9 L (12.0-15.0) % Plt Count 162 (130-450) 10^3/uL MPV 9.6 (7.4-11.4) fL Neut # (Auto) 6.7 H (1.5-6.6) 10^3/uL Lymph # (Auto) 1.2 L (1.5-3.5) 10^3/uL [place] # (Auto) 0.9 (0.0-1.0) 10^3/uL Eos # (Auto) 0.2 (0.0-0.7) 10^3/uL Baso # (Auto) 0.1 (0.0-0.1) 10^3/uL Absolute Nucleated RBC 0.00 x10^3/uL Nucleated RBC % 0.0 /100WBC PT 12.2 (9.9-12.6) secs INR 1.1 (0.8-1.2) Sodium (135-145) mmol/L Potassium (3.5-5.0) mmol/L Chloride (101-111) mmol/L Carbon Dioxide (21-32) mmol/L Anion Gap (6-13) BUN (6-20) mg/dL Creatinine (0.6-1.2) mg/dL Estimated GFR (MDRD) (>89) Glucose (70-100) mg/dL Lactic Acid (0.5-2.2) mmol/L Calcium (8.5-10.3) mg/dL Magnesium (1.7-2.8) mg/dL Total Bilirubin (0.2-1.0) mg/dL AST (10-42) IU/L ALT (10-60) IU/L Alkaline Phosphatase (42-121) IU/L Troponin I High Sens (2.3-19.7) pg/mL Total Protein (6.7-8.2) g/dL Albumin (3.2-5.5) g/dL Globulin (2.1-4.2) g/dL Albumin/Globulin Ratio (1.0-2.2) Lipase (22-51) U/L Urine Color Urine Clarity (CLEAR) Urine pH (5.0-7.5) PH Ur Specific [place] (1.002-1.030) Urine Protein (NEGATIVE) mg/dL Urine Glucose (UA) (NEGATIVE) mg/dL Urine Ketones (NEGATIVE) mg/dL Urine Occult Blood (NEGATIVE) Urine Nitrite (NEGATIVE) Urine Bilirubin (NEGATIVE) Urine Urobilinogen (NORMAL) E.U./dL Ur Leukocyte Esterase (NEGATIVE) Ur Microscopic Review Urine Culture Comments Ethyl Alcohol mg/dL ABX Reporting Has patient been on IV antibiotics over the past 48 hours?: No Sepsis Event Note (H) - Evaluation Current Stage of Sepsis: Ruled out Assessment/Plan - Problem List (1) Fall Impression: 07/11 BP is normative now. educate pt for prevention of fall from orthostatic hypotension continue Flomax, hold Proscar and Detrol fall precaution PT recommended home health. ordered home health PT for pt pt is reported to have a fall but without injury. possible etiology include: hypotension, dehydration, weakness. consult with PT/OT treat underline of hypotension and dehydration fall precaution (2) SVT 07/11 pt present SVT on new EKG. pt is asymptomatic. pt denies chest pain, palpitation, sweating, N/V or SOB. pt had missed Coreg, home meds. pt had hx of SVT before. reconcile home meds coreg, PRN of Metoprolol. pt was given one dosage of Metoprolol. Now his HR is 112 Troponin became negative. continue tele and vital, to determine if pt need further intenvention. (3) Orthostatic hypotension Conclusion/Plan: 07/11 pt state present positive for orthostatic hypotension, likely from va sovagal orthostatic. educate pt how to prevention of orthostatic hypotension and fall precaution. pt stated he understood. hold Proscar and Detrol now pt present orthostatic hypotension. The etiology can include vasovagal, dehydration, or over-medicated BP medications. Pt had three meds recently pr escribed for his nocturia. continue Orthostatic monitor pt hold his two nocturia meds, and continue Flomax tele and vital monitor pt check ECHO, ECHO is also for his pre-syncope evaluation. (4) Elevated troponin level Conclusion/Plan: 07/11 resolved. Troponin is normative. pt is on Aspirin 81mg. it is likely caused by mild demanded small ischemia change. pt has small elevated Troponin in high sensitivity Troponin test. pt denies chest pain, EKG did not indicate acute ST variety. pt is hemodynamic stable. But pt has hypotension when he was found in ambulance. It can also be happened by mild demanded small ischemia change. continue Troponin serial continue home aspirin monitor on tele and vital (5) CKD (chronic kidney disease) stage 3, GFR 30-59 ml/min Conclusion/Plan: 07/11 improved, creatinine is down to 1.2 pt has slight elevated Creatinine. keep pt hydration with IVF of NS but precaution of Fluid overload (6) BPH associated with nocturia Conclusion/Plan: we will continue Flomax and hold other two meds, Proscar and Detrol LA (7) Anxiety Conclusion/Plan: stable, continue home meds Citalopram (8) COPD (chronic obstructive pulmonary disease) Conclusion/Plan: 07/11 pt has hx of COPD and previous cigarette smoker. pt present some wheezing. pt's respiratory status is stable. start on lower dosage of Solu-metrol. it seems improved to pt's wheezing symptoms continue Xopenix and Ipro PRN pt is stable. pt has no respiratory distress now. Pt has 99% O2 sats on room air. order Albuterol and Duoneb PRN (9) Dementia Conclusion/Plan: stable, pt has no home meds for. continue support (10) Do not intubate, cardiopulmonary resuscitation (CPR)-only code status Conclusion/Plan: pt state he choose DNR/DNI. pt also had POLST. pt's and daughter agree the DNR code.
[2019-07-11] MEDS: methylPREDNISolone SUCCINATE 40 MG/ML VIAL IVP SCH ×2 (15:22→21:14)
[2019-07-11] MEDS ORDERED: diltiaZEM 30 MG TABLET PO SCH ×2 (16:12→16:26)
[2019-07-11] MEDS: diltiaZEM 30 MG TABLET PO SCH ×2 (16:42→23:38)
[2019-07-11] MEDS: SODIUM CHLORIDE FLUSH 0.9% 10 ML SYRINGE IVP PRN (18:21)
[2019-07-11] MEDS: ACETAMINOPHEN 325 MG TABLET PO PRN (19:24)
[2019-07-11] MEDS: IPRATROPIUM 0.2 MG/ML NEB INH PRN (19:32)
[2019-07-12] MEDS: LEVALBUTEROL 1.25 MG/3 ML NEB INH PRN ×2 (03:37→07:46)
[2019-07-12 05:31] LABS: HGB - HEMOGLOBIN 11.9 g/dL (14.0-18.0); LYMPHOCYTES # (AUTO) 0.7 10^3/uL (1.5-3.5); LYMPHOCYTES % (AUTO) 12.7 %; MEAN CORPUSCULAR HGB CONC 32.2 g/dL (32.0-36.0); MEAN CORPUSCULAR VOLUME 99.5 fL (80.0-94.0); MONOCYTES # (AUTO) 0.1 10^3/uL (0.0-1.0); MONOCYTES % (AUTO) 1.5 %; NEUTROPHILS # (AUTO) 4.4 10^3/uL (1.5-6.6); NEUTROPHILS % (AUTO) 85.6 %; PLT - PLATELET COUNT 156 10^3/uL (130-450); RED BLOOD COUNT 3.72 10^6/uL (4.70-6.10); RED CELL DISTRIBUTION WIDTH 11.9 % (12.0-15.0); WHITE BLOOD COUNT 5.2 x10^3/uL (4.8-10.8)
[2019-07-12 05:43] LABS: ALBUMIN 3.6 g/dL (3.2-5.5); ALBUMIN/GLOBULIN RATIO 1.3 (1.0-2.2); BILIRUBIN,TOTAL 0.5 mg/dL (0.2-1.0); CREATININE 1.3 mg/dL (0.6-1.2); TOTAL PROTEIN 6.3 g/dL (6.7-8.2)
[2019-07-12] MEDS: methylPREDNISolone SUCCINATE 40 MG/ML VIAL IVP SCH ×2 (05:47→13:23)
[2019-07-12] MEDS: SODIUM CHLORIDE FLUSH 0.9% 10 ML SYRINGE IVP PRN ×2 (05:48→05:54)
[2019-07-12] MEDS: diltiaZEM 30 MG TABLET PO SCH ×3 (05:54→17:47)
[2019-07-12] MEDS: PANTOPRAZOLE 40 MG TABLET PO SCH (05:56)
[2019-07-12] MEDS: IPRATROPIUM 0.2 MG/ML NEB INH PRN (07:46)
[2019-07-12] MEDS ORDERED: SODIUM CHLORIDE 0.9% 1,000 ML IV SCH (08:00)
[2019-07-12] MEDS: ACETAMINOPHEN 325 MG TABLET PO PRN ×3 (08:29→17:49)
[2019-07-12] MEDS: CARVEDILOL 3.125 MG TABLET PO SCH ×2 (08:32→20:34)
[2019-07-12] MEDS: LACTOBACILLUS RHAMNOSUS GG CAPSULE PO SCH (08:34)
[2019-07-12] MEDS: guaiFENesin 600 MG TABLET PO SCH ×2 (08:34→20:34)
[2019-07-12] MEDS: CITALOPRAM HYDROBROMIDE 20 MG TABLET PO SCH (08:35)
[2019-07-12] MEDS: SENNA 8.6 MG TABLET PO SCH (08:38)
[2019-07-12] MEDS: DOCUSATE SODIUM 250 MG CAPSULE PO SCH (08:38)
[2019-07-12] MEDS: TAMSULOSIN 0.4 MG CAPSULE PO SCH (08:39)
[2019-07-12] MEDS: ASPIRIN EC 81 MG TABLET PO SCH (08:39)
[2019-07-12] MEDS: POLYETHYLENE GLYCOL 3350 17 GM PACKET PO SCH (08:41)
[2019-07-12] MEDS: ENOXAPARIN 40 MG/0.4 ML SYRINGE SUBQ SCH (08:41)
[2019-07-12] MEDS: MUCINEX D PO SCH (08:42)
[2019-07-12] MEDS: SODIUM CHLORIDE FLUSH 0.9% 10 ML SYRINGE IVP SCH ×3 (08:45→23:39)
[2019-07-12] MEDS ORDERED: MAGNESIUM HYDROXIDE 2,400 MG/30 ML UDC PO ONE (11:28)
[2019-07-12] MEDS ORDERED: BISACODYL 10 MG SUPP PR ONE (11:28)
--- NOTE | 2019-07-12 13:28 | Discharge Plan ---
Discharge Plan Problem Reviewed?: Yes Disposition: 06 Home Health Service Condition: Poor Prescriptions: diltiaZEM [Cardizem] 30 mg PO Q6HR #40 tablet Carvedilol [Coreg] 12.5 mg PO BID #20 tablet Ipratropium [Atrovent] 1 puffs INH Q6H PRN #1 inhaler PRN Reason: Shortness Of Air/Wheezing Levalbuterol [Xopenex] 1 puffs INH Q4-6H PRN #1 inhaler PRN Reason: Shortness Of Air/Wheezing predniSONE [Deltasone] 10 mg PO [id number] #31 tab Diet: Regular Activity Restrictions: Activity as Tolerated Shower Restrictions: No (fall precaution) Instruction Topics: Diltiazem tablets, Carvedilol tablets, Ipratropium aerosol inhaler, Levalbuterol inhalation solution, Prednisone tablets Health Concerns: SVT, orthostatic hypotension, fall Plan of Treatment: you are prescribed Cardizem and increased your Coreg to control your SVT, now your HR is controlled at around 65-75, please followup your PCP and exterior designer continue to manage you present orthostatic hypotension, your home meds Proscar and Detrol are hold now. you have no issue for your urination in hospital. please followup your urologist and PCP continue to manage. Home health PT/OT/home health AID are arranged for you. Please followup nurse instructions for prevention of fall Care Goals: stabilization and improvement of your medical conditions Assessment: assessment as the above. Additional Instructions or Follow Up instructions: You may followup your PCP in one week, followup exterior designer and urologist as out-pt. Should your symptoms return or worsen, you may present ER or call 911 for help. Follow-Up Care: [facility] - Pulmonary, [facility] - PT, Home Health - OT No Smoking: If you smoke, Please STOP! Call for help. Follow-up with: Harshil Rodriguez MD [Primary Care Provider] -
--- NOTE | 2019-07-12 14:40 | DISCHARGE SUMMARY ---
Discharge Summary Discharge Date: 07/13/19 Discharging Provider: PALACIOS Primary Care Provider: Harshil Hernandez Condition at Discharge: Poor Discharge Disposition: Home Health Service Discharge Facility Name: home - DIAGNOSES Admission Diagnoses: (1) Fall (2) Orthostatic hypotension (3) Elevated troponin level (4) CKD (chronic kidney disease) stage 3, GFR 30-59 ml/min (5) BPH associated with nocturia (6) Anxiety (7) COPD (chronic obstructive pulmonary disease) (8) Dementia (9) Do not intubate, cardiopulmonary resuscitation (CPR)-only code status Discharge Diagnoses with Status of Each Condition: (1) Fall stable (2) Orthostatic hypotension stable and improved today. pt is hemodynamic stable now (3) Elevated troponin level resolved (4) CKD (chronic kidney disease) stage 3, GFR 30-59 ml/min stable (5) BPH associated with nocturia stable (6) Anxiety stable (7) COPD (chronic obstructive pulmonary disease) stable (8) Dementia stable (9) SVT resolved (10) systolic heart failure, [place] stage II stable (11) impacted stool with severe constipation and hx of IBS constipation is resolved - HPI History of Present Illness: Mr. Wood is a pleasant 84-year-old gentleman with a PMH significant for chronic sciatica with radiculopathy which is scheduled to have surgery in three weeks, HTN, chronic hearing loss, GERD, Dementia, COPD, anxiety and depression, BPH which causes him nocturia in the night, CKD stage 3 with chronic anemia who presents by ambulance to ER for evaluation after a fall. pt's daughter and are at the pt's bedside to provide the information. Pt is reported he has been weakness for the last a few days and today his legs gave out when he was in the shower. pt fell down but without injury. he is reported he is not loss of consciousness, and no syncope and no injuries. He was noted hypotension in route by ambulance, and he was received 500 mL of normal saline. his blood pressure was briefly reported to go up and then came back down again. He denies chest pain, fever, chill, shortness of breath, abdominal pain, dysuria, hematuria. Upon examination, pt appear no respiratory distress, he has 99% O2 sat on room air, WBC is normal, although CXR could not exclude infitrate. pt did have slightly elevated Troponin level but pt denies chest pain. EKG did not reveals acute ST variety. pt was found to have orthostatic hypotension at ER. Pt is admitted in observation unit for evaluation of fall, weakness, hypotension and pre-syncope. - HOSPITAL COURSE Hospital Course: pt was admitted for fall, weakness, hypotension and pre-syncope. pt report he has no injury in the fall. Pt was found to have orthostatic hypotension. pt's two meds Proscar and Detrol are hold now. pt was educated how to prevention of fall. pt is encourage to use compression stocking to help venous return and prevention of orthostatic hypotension. pt was also found to have SVT. pt is now prescribed Cardizem and increased his home meds Coreg dosage. pt's HR is controlled in normal arrange. pt is hemodynamic stable after treatment. Home health PT/OT/AID are arranged for pt. The detail hospital course is as the below: (1) Fall stable. pt was educated by nurse and me how to prevent of fall (2) Orthostatic hypotension stable and improved today. pt is hemodynamic stable now (3) Elevated troponin level resolved (4) CKD (chronic kidney disease) stage 3, GFR 30-59 ml/min stable. pt is prescribed Predinsone and waned off by decreased dosage. pt also is prescribed PRN breath treatment (5) BPH associated with nocturia stable (6) Anxiety stable (7) COPD (chronic obstructive pulmonary disease) stable (8) Dementia stable (9) SVT resolved. Pt is prescribed Cardizem and increased Coreg for pt. pt's HR is controlled at around 65-75. (10) systolic heart failure, [place] stage II new EF in ECHO revealed is 45-50%. diastolic right heart pressure is normal. pt is prescribed beta-block. ACIs and other anti-BP meds are hold because pt had severe orthostatic hypotension before. (11) impacted stool with severe constipation and hx of IBS yesterday afternoon, pt report he had no bowel movement for four days, severe pain when he tried to have bowel movement. Nurse tried to help pt to have bowel movement and found pt had impacted stool. pt was treaed with stool soften and enema, finally pt had two large bowel movement. pt is happy to be d/c today. pt is prescribed Docusate PRN - ALLERGIES Allergies/Adverse Reactions: Allergies Allergy/AdvReac Type Severity Reaction Status Date / Time plaster cast material Allergy Rash Uncoded 07/10/19 14:11 - MEDICATIONS Home Medications: Ambulatory Orders Medication Instructions Recorded Confirmed Acetaminophen 1,000 mg PO TID PRN 12/24/15 07/10/19 Tamsulosin [Flomax] 0.4 mg PO DAILY 12/24/15 07/10/19 Aspirin [Adult Aspirin] 81 mg PO DAILY 09/03/18 07/10/19 Calcium Carbonate/Vitamin D3 1 each PO BID 09/03/18 07/10/19 [Calcium 500 mg-Vit D3 600 Unit] Guaifenesin/Pseudoephedrne HCl 1 each PO DAILY 09/03/18 07/10/19 [Mucinex D ER 600-60 mg Tablet] Lactobacillus Acidophilus 1 each PO DAILY 09/03/18 07/10/19 [Probiotic Acidophilus] Citalopram Hydrobromide 40 mg PO DAILY 09/07/18 07/10/19 [Citalopram HBr] HYDROcod/ACETAM 5/325 [[place] 5/325] 1 tab PO DAILY PRN 07/10/19 07/10/19 Carvedilol [Coreg] 12.5 mg PO BID #20 tablet 07/12/19 Docusate Sodium 250Mg Capsule 250 mg PO DAILY PRN #10 capsule 07/12/19 [Colace 250Mg Capsule] Ipratropium [Atrovent] 1 puffs INH Q6H PRN #1 inhaler 07/12/19 Levalbuterol [Xopenex] 1 puffs INH Q4-6H PRN #1 inhaler 07/12/19 Nystatin 1 each MC BID PRN #4 powder.ea. 07/12/19 diltiaZEM [Cardizem] 30 mg PO Q6HR #40 tablet 07/12/19 predniSONE [Deltasone] 10 mg PO [id number] #31 tab 07/12/19 - PHYSICAL EXAM AT DISCHARGE General Appearance: positive: No acute distress, Alert. negative: Lethargic Eyes Bilateral: positive: Normal inspection, PERRL, No lid inflammation, Conjunctivae nml ENT: positive: ENT inspection nml, Pharynx nml, No signs of dehydration. negative: Purulent nasal drainage, Pharyngeal erythema, Oral lesions Neck: positive: Nml inspection, Thyroid nml, No JVD, Trachea midline. negative: Thyromegaly, Lymphadenopathy (R), Lymphadenopathy (L), Stiff neck, Swelling/bruising, Tracheal deviation Respiratory: positive: Chest non-tender, No respiratory distress. negative: Wheezes, Rales, Rhonchi Cardiovascular: positive: Regular rate & rhythm, No murmur, No gallop. negative: Irregularly irregular, Extrasystoles, Tachycardia, Bradycardia, JVD present, Systolic murmur, Diastolic murmur Peripheral Pulses: positive: 2+ Abdomen: positive: Non-tender, No organomegaly, Nml bowel sounds, No distention. negative: Tenderness, Guarding, Rebound Back: positive: Nml inspection. negative: CVA tenderness (R), CVA tenderness (L) Skin: positive: Color nml, No rash, Warm, Dry. negative: Cyanosis, Diaphoresis, Pallor Extremities: positive: Non-tender, Nml appearance. negative: Calf tenderness, Joint swelling, Trisha's sign/cords Neurologic/Psychiatric: positive: Sensation nml, Mood/affect nml. negative: Weakness, Sensory loss, Facial droop, Slurred/abnml speech, Depressed mood/affect - LABS Result Diagrams: 07/13/19 04:50 07/13/19 04:50 - SEPSIS Current Stage of Sepsis: Ruled out - FOLLOW UP Follow Up: you are prescribed Cardizem and increased your Coreg to control your SVT, now your HR is controlled at around 65-75, please followup your PCP and consulting psychiatrist continue to manage you present orthostatic hypotension, your home meds Proscar and Detrol are hold now. you have no issue for your urination in hospital. please followup your urologist and PCP continue to manage. Home health PT/OT/home health AID are arranged for you. Please followup nurse instructions for prevention of fall You may followup your PCP in one week, followup consulting psychiatrist and urologist as out-pt. Should your symptoms return or worsen, you may present ER or call 911 for help. - TIME SPENT Time Spent in Discharge (Minutes): 60
[2019-07-12] MEDS: HYDROcod/ACETAM 5/325 MG TABLET PO PRN (14:47)
[2019-07-12] MEDS ORDERED: MINERAL OIL ENEMA 133 ML BOTTLE RC SCH ×2 (16:00→17:30)
--- NOTE | 2019-07-12 16:43 | PROVIDER PROGRESS NOTE ---
Subjective - Prog Note Date Prog Note Date: 07/12/19 - Subjective Pt reports feeling: Improved Subjective: pt report he feel good, but he report he has no bowel for four days. pt's report pt had hx of IBS, either continuing diarrhea for a few days or constipation for a few days. Nurse Perkins initiate bowel protocol miralax and Senna was given to pt but pt has only small bowel movement. Pt tried first enema but pt could not hold the enema at all, so it did not work. Magnesium citrate was ordered and will try second time of enema. advise pt hold enema at least 3-5 minutes. Current Medications - Current Medications Current Medications: Active Medications Acetaminophen (Tylenol) 650 mg PO Q4HR PRN PRN Reason: Pain 1 to 4 Last Admin: 07/12/19 13:21 Dose: 650 mg Hydrocodone Bitart/Acetaminophen ([place] 5/325) 1 tab PO DAILY PRN PRN Reason: PAIN Last Admin: 07/12/19 14:47 Dose: 1 tab Aspirin (Ecotrin) 81 mg PO DAILY [facility] Last Admin: 07/12/19 08:39 Dose: 81 mg Carvedilol (Coreg) 12.5 mg PO BID [facility] Last Admin: 07/12/19 08:32 Dose: 12.5 mg Citalopram Hydrobromide (Celexa) 40 mg PO DAILY [facility] Last Admin: 07/12/19 08:35 Dose: 40 mg Diltiazem HCl (Cardizem) 30 mg PO Q6HR [facility] Last Admin: 07/12/19 13:21 Dose: 30 mg Docusate Sodium (Colace 250mg Capsule) 250 - 500 mg PO DAILY [facility] Last Admin: 07/12/19 08:38 Dose: 500 mg Enoxaparin Sodium (Lovenox) 40 mg SUBQ DAILY [facility] Last Admin: 07/12/19 08:41 Dose: 40 mg Guaifenesin (Mucinex) 600 mg PO BID [facility] Last Admin: 07/12/19 08:34 Dose: 600 mg Sodium Chloride (Normal Saline 0.9%) 1,000 mls @ 83.333 mls/hr IV .Q12H [facility] Stop: 07/13/19 07:59 Last Admin: 07/12/19 08:29 Dose: 83.333 mls/hr Ipratropium [place] (Atrovent) 0.5 mg INH RTQ4H PRN PRN Reason: Shortness of Air/Wheezing Last Admin: 07/12/19 07:46 Dose: 0.5 mg Lactobacillus Rhamnosus (Culturelle) 1 cap PO DAILY [facility] Last Admin: 07/12/19 08:34 Dose: 1 cap Levalbuterol HCl (Xopenex) 1.25 mg INH Q4H PRN PRN Reason: Shortness of Air/Wheezing Last Admin: 07/12/19 07:46 Dose: 1.25 mg Magnesium Citrate () 296 ml PO ONCE PRN PRN Reason: Constipation Metoprolol Tartrate (Lopressor Inj) 5 mg IVP Q6H PRN PRN Reason: Hypertensive Emergency Last Admin: 07/11/19 08:45 Dose: 5 mg Mineral Oil (Mineral Oil Enema) 133 ml RC ONCE [facility] Nystatin (Nystop) 1 applic TOP BID [facility] Ondansetron HCl (Zofran Inj) 4 mg IVP Q6HR PRN PRN Reason: Nausea / Vomiting Pantoprazole Sodium (Protonix) 40 mg PO QDAC [facility] Last Admin: 07/12/19 05:56 Dose: 40 mg Mucinex D Er 600-60 (Mg Tablet) 1 each PO DAILY [facility] Last Admin: 07/12/19 08:42 Dose: Not Given Polyethylene Glycol (Miralax) 17 gm PO DAILY [facility] Last Admin: 07/12/19 08:41 Dose: 17 gm Prednisone (Deltasone) 40 mg PO DAILYWM [facility] Senna (Senokot) 8.6 - 17.2 mg PO DAILY [facility] Last Admin: 07/12/19 08:38 Dose: 17.2 mg Sodium Chloride (Normal Saline Flush 0.9%) 10 ml IVP PRN PRN PRN Reason: NEEDED PER PROVIDER ORDERS Last Admin: 07/12/19 05:54 Dose: 10 ml Sodium Chloride (Normal Saline Flush 0.9%) 10 ml IVP 0100,0900,1700 [facility] Last Admin: 07/12/19 08:45 Dose: 10 ml Tamsulosin HCl (Flomax) 0.4 mg PO DAILY [facility] Last Admin: 07/12/19 08:39 Dose: 0.4 mg Zolpidem Tartrate (Ambien) 5 mg PO QPM PRN PRN Reason: Insomnia Acetaminophen 1,000 mg PO TID PRN 12/24/15 Tamsulosin [Flomax] 0.4 mg PO DAILY 12/24/15 Aspirin [Adult Aspirin] 81 mg PO DAILY 09/03/18 Calcium Carbonate/Vitamin D3 [Calcium 500 mg-Vit D3 600 Unit] 1 each PO BID 09/03/18 Guaifenesin/Pseudoephedrne HCl [Mucinex D ER 600-60 mg Tablet] 1 each PO DAILY 09/03/18 Lactobacillus Acidophilus [Probiotic Acidophilus] 1 each PO DAILY 09/03/18 Citalopram Hydrobromide [Citalopram HBr] 40 mg PO DAILY 09/07/18 HYDROcod/ACETAM 5/325 [[place] 5/325] 1 tab PO DAILY PRN 07/10/19 Objective - Vital Signs/Intake & Output Reviewed Vital Signs: Yes Vital Signs: Vital Signs x48h Temp Pulse Pulse Pulse Pulse Pulse Resp 07/12/19 16:07 36.4 C L 72 24 07/12/19 13:21 07/12/19 11:14 36.5 C 63 17 07/12/19 09:00 69 89 70 BP BP BP BP BP Pulse Ox 07/12/19 16:07 146/58 H 97 07/12/19 13:21 114/68 07/12/19 11:14 131/78 H 97 07/12/19 09:00 113/72 97/55 L 131/40 H Intake & Output: Intake & Output 07/09/19 07/10/19 07/11/19 07/12/19 23:59 23:59 23:59 23:59 Intake Total 1827 3345 1150 Output Total 400 2175 475 Balance 1427 1170 675 - Objective General Appearance: positive: No acute distress, Alert. negative: Lethargic Eyes Bilateral: positive: Normal inspection, PERRL, No lid inflammation, Conjunctivae nml ENT: positive: ENT inspection nml, Pharynx nml, No signs of dehydration. negative: Purulent nasal drainage, Pharyngeal erythema, Oral lesions Neck: positive: Nml inspection, Thyroid nml, No JVD, Trachea midline. negative: Thyromegaly, Lymphadenopathy (R), Lymphadenopathy (L), Stiff neck, Swelling/bruising, Tracheal deviation Respiratory: positive: Chest non-tender, No respiratory distress. negative: Wheezes, Rales, Rhonchi Cardiovascular: positive: Regular rate & rhythm, No murmur, No gallop, Irregularly irregular. negative: Extrasystoles, Tachycardia, Bradycardia, JVD present, Systolic murmur, Diastolic murmur Peripheral Pulses: 2+ Radial (R), 2+ Radial (L), 2+ Dorsalis pedis (R), 2+ Dorsalis pedis (L) Abdomen: positive: Non-tender, No organomegaly, Nml bowel sounds, No distention. negative: Tenderness, Guarding, Rebound Back: positive: Nml inspection. negative: CVA tenderness (R), CVA tenderness (L ) Skin: positive: Color nml, No rash, Warm, Dry. negative: Cyanosis, Diaphoresis, Pallor Extremities: positive: Non-tender, Full ROM, Nml appearance. negative: Calf tenderness, Joint swelling, Trisha's sign/cords Neurologic/Psychiatric: positive: Sensation nml, Mood/affect nml. negative: Weakness, Sensory loss, Facial droop, Slurred/abnml speech, Depressed mood/affect - Lab Results Fish Bones: 07/12/19 04:51 07/12/19 04:51 Other Labs: Lab Results x24hrs 07/12/19 07/12/19 Range/Units 04:51 04:51 WBC 5.2 (4.8-10.8) x10^3/uL RBC 3.72 L (4.70-6.10) 10^6/uL Hgb 11.9 L (14.0-18.0) g/dL Hct 37.0 L (42.0-52.0) % MCV 99.5 H (80.0-94.0) fL MCH 32.0 H (27.0-31.0) pg MCHC 32.2 (32.0-36.0) g/dL RDW 11.9 L (12.0-15.0) % Plt Count 156 (130-450) 10^3/uL MPV 10.0 (7.4-11.4) fL Neut # (Auto) 4.4 (1.5-6.6) 10^3/uL Lymph # (Auto) 0.7 L (1.5-3.5) 10^3/uL [place] # (Auto) 0.1 (0.0-1.0) 10^3/uL Eos # (Auto) 0.0 (0.0-0.7) 10^3/uL Baso # (Auto) 0.0 (0.0-0.1) 10^3/uL Absolute Nucleated RBC 0.00 x10^3/uL Nucleated RBC % 0.0 /100WBC Sodium 139 (135-145) mmol/L Potassium 4.6 (3.5-5.0) mmol/L Chloride 105 (101-111) mmol/L Carbon Dioxide 26 (21-32) mmol/L Anion Gap 8.0 (6-13) BUN 22 H (6-20) mg/dL Creatinine 1.3 H (0.6-1.2) mg/dL Estimated GFR (MDRD) 53 L (>89) Glucose 139 H (70-100) mg/dL Calcium 9.0 (8.5-10.3) mg/dL Total Bilirubin 0.5 (0.2-1.0) mg/dL AST 21 (10-42) IU/L ALT 14 (10-60) IU/L Alkaline Phosphatase 51 (42-121) IU/L Total Protein 6.3 L (6.7-8.2) g/dL Albumin 3.6 (3.2-5.5) g/dL Globulin 2.7 (2.1-4.2) g/dL Albumin/Globulin Ratio 1.3 (1.0-2.2) ABX Reporting Has patient been on IV antibiotics over the past 48 hours?: No Sepsis Event Note (H) - Evaluation Current Stage of Sepsis: Ruled out Assessment/Plan - Problem List (1) Fall Impression: 07/12 pt was evaluated and treated with PT/OT, home health PT/OT/AID was recommended, and ordered for pt. educate pt how to prevent fall, answer pt and pt's 's questions and concerns. 07/11 BP is normative now. educate pt for prevention of fall from orthostatic hypotension continue Flomax, hold Proscar and Detrol fall precaution PT recommended home health. ordered home health PT for pt pt is reported to have a fall but without injury. possible etiology include: hypotension, dehydration, weakness. consult with PT/OT treat underline of hypotension and dehydration fall precaution (2)constipation with hx of IBS 07/12 pt's report pt had hx of IBS, either continuing diarrhea for a few days or constipation for a few days. Nurse Gregorio initiate bowel protocol miralax and Senna was given to pt but pt has only small bowel movement. Pt tried first enema but pt could not hold the enema at all, so it did not work. Magnesium citrate was ordered and will try second time of enema. advise pt hold enema at least 3-5 minutes. order Magnesium citrate and enema (2) SVT 07/12 resolved. now pt's HR is around 65-75. pt is hemodynamic stable. continue Cardizem and Coreg 12.5 bid continue tele and vital monitor 07/11 pt present SVT on new EKG. pt is asymptomatic. pt denies chest pain, palpitation, sweating, N/V or SOB. pt had missed Coreg, home meds. pt had hx of SVT before. reconcile home meds coreg, PRN of Metoprolol. pt was given one dosage of Metoprolol. Now his HR is 112 Troponin became negative. continue tele and vital, to determine if pt need further intenvention. (3) Orthostatic hypotension Conclusion/Plan: 07/11 pt state present positive for orthostatic hypotension, likely from vasovag al orthostatic. educate pt how to prevention of orthostatic hypotension and fall precaution. pt stated he understood. hold Proscar and Detrol now pt present orthostatic hypotension. The etiology can include vasovagal, dehydration, or over-medicated BP medications. Pt had three meds recently prescribed for his nocturia. continue Orthostatic monitor pt hold his two nocturia meds, and continue Flomax tele and vital monitor pt check ECHO, ECHO is also for his pre-syncope evaluation. (4) Elevated troponin level Conclusion/Plan: 07/11 resolved. Troponin is normative. pt is on Aspirin 81mg. it is likely caused by mild demanded small ischemia change. pt has small elevated Troponin in high sensitivity Troponin test. pt denies chest pain, EKG did not indicate acute ST variety. pt is hemodynamic stable. But pt has hypotension when he was found in ambulance. It can also be happened by mild demanded small ischemia change. continue Troponin serial continue home aspirin monitor on tele and vital (5) CKD (chronic kidney disease) stage 3, GFR 30-59 ml/min Conclusion/Plan: 07/11 improved, creatinine is down to 1.2 pt has slight elevated Creatinine. keep pt hydration with IVF of NS but precaution of Fluid overload (6) BPH associated with nocturia Conclusion/Plan: we will continue Flomax and hold other two meds, Proscar and Detrol LA (7) Anxiety Conclusion/Plan: stable, continue home meds Citalopram (8) COPD (chronic obstructive pulmonary disease) Conclusion/Plan: 07/11 pt has hx of COPD and previous cigarette smoker. pt present some wheezing. pt's respiratory status is stable. start on lower dosage of Solu-metrol. it seems improved to pt's wheezing symptoms continue Xopenix and Ipro PRN pt is stable. pt has no respiratory distress now. Pt has 99% O2 sats on room air. order Albuterol and Duoneb PRN (9) Dementia Conclusion/Plan: stable, pt has no home meds for. continue support (10) Do not intubate, cardiopulmonary resuscitation (CPR)-only code status Conclusion/Plan: pt state he choose DNR/DNI. pt also had POLST. pt's and daughter agree the DNR code.
[2019-07-12] MEDS ORDERED: MAGNESIUM CITRATE 296 ML BOTTLE PO PRN (16:44)
[2019-07-12] MEDS: SODIUM CHLORIDE 0.9% 1,000 ML IV SCH (17:51)
[2019-07-12] MEDS: NYSTATIN POWDER 15 GM TOP SCH ×2 (17:52→20:34)
[2019-07-12] MEDS ORDERED: SOAP SUDS ENEMA 1 EACH RC ONE (19:01)
[2019-07-13] MEDS: diltiaZEM 30 MG TABLET PO SCH ×2 (01:13→06:33)
[2019-07-13] MEDS: SODIUM CHLORIDE 0.9% 1,000 ML IV SCH (01:38)
[2019-07-13 05:22] LABS: BASOPHILS % (AUTO) 0.1 %; LYMPHOCYTES # (AUTO) 1.2 10^3/uL (1.5-3.5); LYMPHOCYTES % (AUTO) 9.2 %; MEAN CORPUSCULAR HEMOGLOBIN 32.4 pg (27.0-31.0); MEAN CORPUSCULAR HGB CONC 31.4 g/dL (32.0-36.0); MEAN CORPUSCULAR VOLUME 103.2 fL (80.0-94.0); MEAN PLATELET VOLUME 10.7 fL (7.4-11.4); MONOCYTES # (AUTO) 1.2 10^3/uL (0.0-1.0); NEUTROPHILS # (AUTO) 10.3 10^3/uL (1.5-6.6); NEUTROPHILS % (AUTO) 81.2 %; PLT - PLATELET COUNT 164 10^3/uL (130-450); RED BLOOD COUNT 3.39 10^6/uL (4.70-6.10); RED CELL DISTRIBUTION WIDTH 12.2 % (12.0-15.0); WHITE BLOOD COUNT 12.7 x10^3/uL (4.8-10.8)
[2019-07-13 05:38] LABS: ALBUMIN 3.4 g/dL (3.2-5.5); ALBUMIN/GLOBULIN RATIO 1.4 (1.0-2.2); BILIRUBIN,TOTAL 0.7 mg/dL (0.2-1.0); CALCIUM 8.7 mg/dL (8.5-10.3); CREATININE 1.3 mg/dL (0.6-1.2); TOTAL PROTEIN 5.8 g/dL (6.7-8.2)
[2019-07-13] MEDS: PANTOPRAZOLE 40 MG TABLET PO SCH (06:33)
[2019-07-13] MEDS: IPRATROPIUM 0.2 MG/ML NEB INH PRN (07:23)
[2019-07-13] MEDS: LEVALBUTEROL 1.25 MG/3 ML NEB INH PRN (07:23)
[2019-07-13] MEDS ORDERED: SODIUM CHLORIDE 0.9% 1,000 ML IV SCH (07:49)
[2019-07-13] MEDS ORDERED: LACTULOSE 10 GM /15 ML UDC PO ONE (08:00)
[2019-07-13] MEDS ORDERED: predniSONE 20 MG TABLET PO SCH (08:00)
[2019-07-13] MEDS: CARVEDILOL 3.125 MG TABLET PO SCH (08:19)
[2019-07-13] MEDS: LACTOBACILLUS RHAMNOSUS GG CAPSULE PO SCH (08:20)
[2019-07-13] MEDS: ASPIRIN EC 81 MG TABLET PO SCH (08:20)
[2019-07-13] MEDS: CITALOPRAM HYDROBROMIDE 20 MG TABLET PO SCH (08:20)
[2019-07-13] MEDS: TAMSULOSIN 0.4 MG CAPSULE PO SCH (08:21)
[2019-07-13] MEDS: ENOXAPARIN 40 MG/0.4 ML SYRINGE SUBQ SCH (08:21)
[2019-07-13] MEDS: DOCUSATE SODIUM 250 MG CAPSULE PO SCH (08:21)
[2019-07-13] MEDS ORDERED: SODIUM POLYSTYRENE SULFONATE 15 GM/60 ML BOTTLE PO ONE (10:46)
[2019-07-13 10:59] VITALS: BP 123/61
[2019-07-13] MEDS: guaiFENesin 600 MG TABLET PO SCH (11:34)
[2019-07-13] MEDS: POLYETHYLENE GLYCOL 3350 17 GM PACKET PO SCH (11:34)
[2019-07-13] MEDS: NYSTATIN POWDER 15 GM TOP SCH (11:34)
[2019-07-13] MEDS: MUCINEX D PO SCH (11:34)
[2019-07-13] MEDS: SODIUM CHLORIDE FLUSH 0.9% 10 ML SYRINGE IVP SCH (11:35)
[2019-07-13] MEDS: SENNA 8.6 MG TABLET PO SCH (11:35)
--- NOTE | 2019-07-13 14:30 | DISCHARGE SUMMARY ---
Discharge Summary Discharge Date: 07/13/19 Discharging Provider: PALACIOS Primary Care Provider: Dr. Rodriguez Condition at Discharge: Poor Discharge Disposition: Home Health Service Discharge Facility Name: home - DIAGNOSES Admission Diagnoses: 1) Fall (2) Orthostatic hypotension (3) Elevated troponin level (4) CKD (chronic kidney disease) stage 3, GFR 30-59 ml/min (5) BPH associated with nocturia (6) Anxiety (7) COPD (chronic obstructive pulmonary disease) (8) Dementia (9) Do not intubate, cardiopulmonary resuscitation (CPR)-only code status Discharge Diagnoses with Status of Each Condition: (1) Fall stable (2) Orthostatic hypotension stable and improved today. pt is hemodynamic stable now (3) Elevated troponin level resolved (4) CKD (chronic kidney disease) stage 3, GFR 30-59 ml/min stable (5) BPH associated with nocturia stable (6) Anxiety stable (7) COPD (chronic obstructive pulmonary disease) stable (8) Dementia stable (9) SVT resolved (10) systolic heart failure, [place] stage II stable (11) impacted stool with severe constipation and abdominal pain, and hx of IBS constipation was resolved - HPI History of Present Illness: Mr. Wood is a pleasant 84-year-old gentleman with a PMH significant for chronic sciatica with radiculopathy which is scheduled to have surgery in three weeks, HTN, chronic hearing loss, GERD, Dementia, COPD, anxiety and depression, BPH which causes him nocturia in the night, CKD stage 3 with chronic anemia who presents by ambulance to ER for evaluation after a fall. pt's daughter and are at the pt's bedside to provide the information. Pt is reported he has been weakness for the last a few days and today his legs gave out when he was in the shower. pt fell down but without injury. he is reported he is not loss of consciousness, and no syncope and no injuries. He was noted hypotension in route by ambulance, and he was received 500 mL of normal saline. his blood pre ssure was briefly reported to go up and then came back down again. He denies chest pain, fever, chill, shortness of breath, abdominal pain, dysuria, hematuria. Upon examination, pt appear no respiratory distress, he has 99% O2 sat on room air, WBC is normal, although CXR could not exclude infitrate. pt did have slightly elevated Troponin level but pt denies chest pain. EKG did not reveals acute ST variety. pt was found to have orthostatic hypotension at ER. Pt is admitted in observation unit for evaluation of fall, weakness, hypotension and pre-syncope. - HOSPITAL COURSE Hospital Course: pt was admitted for fall, weakness, hypotension and pre-syncope. pt report he has no injury in the fall. Pt was found to have orthostatic hypotension. pt's two meds Proscar and Detrol are hold now. pt was educated how to prevention of fall. pt is encourage to use compression stocking to help venous return and prevention of orthostatic hypotension. pt was also found to have SVT. pt is now prescribed Cardizem and increased his home meds Coreg dosage. pt's HR is controlled in normal arrange. pt is hemodynamic stable after treatment. Home health PT/OT/AID are arranged for pt. The detail hospital course is as the below: (1) Fall stable. pt was educated by nurse and me how to prevent of fall (2) Orthostatic hypotension stable and improved today. pt is hemodynamic stable now (3) Elevated troponin level resolved (4) CKD (chronic kidney disease) stage 3, GFR 30-59 ml/min stable. (5) BPH associated with nocturia stable (6) Anxiety stable (7) COPD (chronic obstructive pulmonary disease) stable, pt is prescribed Predinsone and waned off by decreased dosage. pt also is prescribed PRN breath treatment (8) Dementia stable (9) SVT resolved. Pt is prescribed Cardizem and increased Coreg for pt. pt's HR is controlled at around 65-75. pt is hemodynamic stable. (10) systolic heart failure, [place] stage II new EF in ECHO revealed is 45-50%. diastolic right heart pressure is normal. pt is prescribed beta-block. ACIs and other anti-BP meds are hold because pt had severe orthostatic hypotension before. (11) impacted stool with severe constipation and abdominal pain, and hx of IBS yesterday afternoon, pt reported he had no bowel movement for four days, complained of severe abdominal pain when he tried to have bowel movement. examination reveals pt had impacted stool. pt was treated with stool soften, and different enema. finally pt tolerated the treatment. he had two large bowel mov ement. pt is happy to be d/c today. pt is prescribed Docusate PRN - ALLERGIES Allergies/Adverse Reactions: Allergies Allergy/AdvReac Type Severity Reaction Status Date / Time plaster cast material Allergy Rash Uncoded 07/10/19 14:11 - MEDICATIONS Home Medications: Ambulatory Orders Medication Instructions Recorded Confirmed Acetaminophen 1,000 mg PO TID PRN 12/24/15 07/10/19 Tamsulosin [Flomax] 0.4 mg PO DAILY 12/24/15 07/10/19 Aspirin [Adult Aspirin] 81 mg PO DAILY 09/03/18 07/10/19 Calcium Carbonate/Vitamin D3 1 each PO BID 09/03/18 07/10/19 [Calcium 500 mg-Vit D3 600 Unit] Guaifenesin/Pseudoephedrne HCl 1 each PO DAILY 09/03/18 07/10/19 [Mucinex D ER 600-60 mg Tablet] Lactobacillus Acidophilus 1 each PO DAILY 09/03/18 07/10/19 [Probiotic Acidophilus] Citalopram Hydrobromide 40 mg PO DAILY 09/07/18 07/10/19 [Citalopram HBr] HYDROcod/ACETAM 5/325 [[place] 5/325] 1 tab PO DAILY PRN 07/10/19 07/10/19 Carvedilol [Coreg] 12.5 mg PO BID #20 tablet 07/12/19 Docusate Sodium 250Mg Capsule 250 mg PO DAILY PRN #10 capsule 07/12/19 [Colace 250Mg Capsule] Ipratropium [Atrovent] 1 puffs INH Q6H PRN #1 inhaler 07/12/19 Levalbuterol [Xopenex] 1 puffs INH Q4-6H PRN #1 inhaler 07/12/19 Nystatin 1 each MC BID PRN #4 powder.ea. 07/12/19 diltiaZEM [Cardizem] 30 mg PO Q6HR #40 tablet 07/12/19 predniSONE [Deltasone] 10 mg PO [id number] #31 tab 07/12/19 - PHYSICAL EXAM AT DISCHARGE General Appearance: positive: No acute distress, Alert. negative: Lethargic Eyes Bilateral: positive: Normal inspection, PERRL, No lid inflammation, Conjunctivae nml ENT: positive: ENT inspection nml, Pharynx nml, No signs of dehydration. negative: Purulent nasal drainage, Pharyngeal erythema, Oral lesions Neck: positive: Nml inspection, Thyroid nml, No JVD, Trachea midline. negative: Thyromegaly, Lymphadenopathy (R), Lymphadenopathy (L), Stiff neck, Swelling/bruising, Tracheal deviation Respiratory: positive: Chest non-tender, No respiratory distress, Breath sounds nml. negative: Wheezes, Rales, Rhonchi Cardiovascular: positive: Regular rate & rhythm, No murmur, No gallop. negativ e: Irregularly irregular, Extrasystoles, Tachycardia, Bradycardia, JVD present, Systolic murmur, Diastolic murmur Peripheral Pulses: positive: 2+ Abdomen: positive: Non-tender, No organomegaly, Nml bowel sounds, No distention. negative: Tenderness, Guarding, Rebound Back: positive: Nml inspection. negative: CVA tenderness (R), CVA tenderness (L) Skin: positive: Color nml, No rash, Warm, Dry. negative: Cyanosis, Diaphoresis, Pallor Extremities: positive: Non-tender, Nml appearance. negative: Calf tenderness, Joint swelling, Trisha's sign/cords Neurologic/Psychiatric: positive: Oriented x3, Sensation nml, Mood/affect nml. negative: Weakness, Sensory loss, Facial droop, Slurred/abnml speech, Depressed mood/affect - LABS Result Diagrams: 07/13/19 04:50 07/13/19 04:50 - SEPSIS Current Stage of Sepsis: Ruled out - FOLLOW UP Follow Up: you are prescribed Cardizem and increased your Coreg to control your SVT, now your HR is controlled at around 65-75, please followup your PCP and stockroom helper continue to manage you present orthostatic hypotension, your home meds Proscar and Detrol are hold now. you have no issue for your urination in hospital. please followup your urologist and PCP continue to manage. Home health PT/OT/home health AID are arranged for you. Please followup nurse instructions for prevention of fall You may followup your PCP in one week, followup stockroom helper and urologist as out-pt. Should your symptoms return or worsen, you may present ER or call 911 for help. - TIME SPENT Time Spent in Discharge (Minutes): 60
== END 2019-07-13 11:40 | disposition home health service (06) ==
LOC: EDUNIT# → EDSEX → ED 14:05 → MS2 15:57
PROVIDERS: ADMIT Nurse Practitioner Gerontology; ATTEND Nurse Practitioner Gerontology
DX: I95.1 Orthostatic hypotension (principal); R79.89 Other specified abnormal findings of blood chemistry; I13.0 Hypertensive heart and chronic kidney disease with heart failure and stage 1 through stage 4 chronic kidney disease, or unspecified chronic kidney disease; N18.3 Chronic kidney disease, stage 3 (moderate); I50.20 Unspecified systolic (congestive) heart failure; N40.1 Benign prostatic hyperplasia with lower urinary tract symptoms; R35.1 Nocturia; F41.9 Anxiety disorder, unspecified; F32.9 Major depressive disorder, single episode, unspecified; J44.9 Chronic obstructive pulmonary disease, unspecified; F03.90 Unspecified dementia, unspecified severity, without behavioral disturbance, psychotic disturbance, mood disturbance, and anxiety; I47.1 Supraventricular tachycardia; K59.00 Constipation, unspecified; K58.9 Irritable bowel syndrome, unspecified; M54.30 Sciatica, unspecified side; M54.10 Radiculopathy, site unspecified; K21.9 Gastro-esophageal reflux disease without esophagitis; D64.89 Other specified anemias; G62.9 Polyneuropathy, unspecified; M10.9 Gout, unspecified; H91.90 Unspecified hearing loss, unspecified ear; Z66 Do not resuscitate; Z91.81 History of falling; Z79.82 Long term (current) use of aspirin; Z79.891 Long term (current) use of opiate analgesic; Z85.828 Personal history of other malignant neoplasm of skin; Z87.891 Personal history of nicotine dependence
CPT/HCPCS: 36415; 71045; 80053; 81003; 83605; 83690; 83735; 84484; 85025; 85610; 87040; 93005; 93306; 94640; 96361; 96372; 96374; 96375; 96376; 97116; 97162; 97166; 97530; 99284; 99285; A9270; G0378; J1650; J7512; J8499; 80320; 81001; 84443; 87086

== ENCOUNTER 2019-08-04 08:52 | Outpatient (CLI) | payer MEDICARE ==
[2019-08-04 17:11] LABS: BASOPHILS % (AUTO) 0.4 %; EOSINOPHILS # (AUTO) 0.2 10^3/uL (0.0-0.7); EOSINOPHILS % (AUTO) 2.6 %; HGB - HEMOGLOBIN 11.3 g/dL (14.0-18.0); LYMPHOCYTES # (AUTO) 1.3 10^3/uL (1.5-3.5); LYMPHOCYTES % (AUTO) 14.2 %; MEAN CORPUSCULAR HEMOGLOBIN 31.5 pg (27.0-31.0); MEAN CORPUSCULAR HGB CONC 31.1 g/dL (32.0-36.0); MEAN CORPUSCULAR VOLUME 101.1 fL (80.0-94.0); MEAN PLATELET VOLUME 10.7 fL (7.4-11.4); MONOCYTES # (AUTO) 0.8 10^3/uL (0.0-1.0); MONOCYTES % (AUTO) 8.8 %; NEUTROPHILS # (AUTO) 6.9 10^3/uL (1.5-6.6); NEUTROPHILS % (AUTO) 73.7 %; PLT - PLATELET COUNT 190 10^3/uL (130-450); RED BLOOD COUNT 3.59 10^6/uL (4.70-6.10); RED CELL DISTRIBUTION WIDTH 11.9 % (12.0-15.0); WHITE BLOOD COUNT 9.4 x10^3/uL (4.8-10.8)
[2019-08-04 17:32] LABS: HB2 TOTAL 12.1 g/dL; HEMOGLOBIN A1C 0.45 g/dL; HEMOGLOBIN A1C % 5.6 % (4.6-6.2)
[2019-08-04 17:34] LABS: ALBUMIN 3.7 g/dL (3.2-5.5); ALBUMIN/GLOBULIN RATIO 1.2 (1.0-2.2); ALKALINE PHOSPHATASE 54 IU/L (42-121); ALT ALANINE AMINOTRANSFERASE 14 IU/L (10-60); AST ASPARTATE AMINOTRANSFERASE 18 IU/L (10-42); BILIRUBIN,TOTAL 0.9 mg/dL (0.2-1.0); BUN - BLOOD UREA NITROGEN 17 mg/dL (6-20); CALCIUM 9.3 mg/dL (8.5-10.3); CARBON DIOXIDE - CO2 28 mmol/L (21-32); CHLORIDE 98 mmol/L (101-111); CHOL/HDL RATIO 2.6 (<5.0); CHOLESTEROL 161 mg/dL; CREATININE 1.2 mg/dL (0.6-1.2); GFR - MDRD 58 (>89); GLUCOSE 92 mg/dL (70-100); HDL CHOLESTEROL 62 mg/dL; LDL CHOLESTEROL,CALCULATED 81 mg/dL; LDL/HDL RATIO 1.3 (<3.6); SODIUM 136 mmol/L (135-145); TOTAL PROTEIN 6.7 g/dL (6.7-8.2); VLDL CHOLESTEROL 18 mg/dL
== END 2019-08-04 08:53 | disposition home or self-care (01) ==
LOC: LAB.S 08:52
PROVIDERS: ATTEND Registered Nurse
DX: N18.3 Chronic kidney disease, stage 3 (moderate) (principal); I12.9 Hypertensive chronic kidney disease with stage 1 through stage 4 chronic kidney disease, or unspecified chronic kidney disease; Z13.29 Encounter for screening for other suspected endocrine disorder
CPT/HCPCS: 36415; 80053; 80061; 83036; 83721; 84443; 85025

== ENCOUNTER 2020-07-07 11:50 | Emergency (ER) | payer MEDICARE ==
[2020-07-07 11:58] VITALS: BP 161/100
--- NOTE | 2020-07-07 12:06 | ED Physician Documentation ---
PD HPI WOUND RECHECK - Stated complaint Stated Complaint: R HAND WOUND - Chief complaint Chief Complaint: Wound - Histroy obtained from History obtained from: Patient, Family () - Additional information Additional information: He has a precancerous lesion on the dorsum of the right hand, the is concerned that it may have become infected over the last few days with some increased pain and drainage. No fevers. They have an appointment with a biodiesel process control technician. Review of Systems Constitutional: reports: Reviewed and negative Ears: reports: Reviewed and negative Nose: reports: Reviewed and negative Throat: reports: Reviewed and negative PD PAST MEDICAL HISTORY - Past Medical History Cardiovascular: Hypertension, Arrhythmia, Other Respiratory: COPD Neuro: Dementia, Peripheral neuropathy Endocrine/Autoimmune: None GI: None, GERD, C.difficile, Other : Renal insuffiency HEENT: Chronic hearing loss Psych: Anxiety Musculoskeletal: Gout, Chronic back pain Derm: None - Past Surgical History Past Surgical History: Yes Ortho: Other Derm: Skin cancer surgery - Present Medications Home Medications: Ambulatory Orders Medication Instructions Recorded Confirmed Acetaminophen 1,000 mg PO TID PRN 12/24/15 07/10/19 Tamsulosin [Flomax] 0.4 mg PO DAILY 12/24/15 07/10/19 Aspirin [Adult Aspirin] 81 mg PO DAILY 09/03/18 07/10/19 Calcium Carbonate/Vitamin D3 1 each PO BID 09/03/18 07/10/19 [Calcium 500 mg-Vit D3 600 Unit] Guaifenesin/Pseudoephedrne HCl 1 each PO DAILY 09/03/18 07/10/19 [Mucinex D ER 600-60 mg Tablet] Lactobacillus Acidophilus 1 each PO DAILY 09/03/18 07/10/19 [Probiotic Acidophilus] Citalopram Hydrobromide 40 mg PO DAILY 09/07/18 07/10/19 [Citalopram HBr] HYDROcod/ACETAM 5/325 [[place] 5/325] 1 tab PO DAILY PRN 07/10/19 07/10/19 Docusate Sodium 250Mg Capsule 250 mg PO DAILY PRN #10 capsule 07/12/19 [Colace 250Mg Capsule] Ipratropium [Atrovent] 1 puffs INH Q6H PRN #1 inhaler 07/12/19 Levalbuterol [Xopenex] 1 puffs INH Q4-6H PRN #1 inhaler 07/12/19 Nystatin 1 each MC BID PRN #4 powder.ea. 07/12/19 carvediloL [Coreg] 12.5 mg PO BID #20 tablet 07/12/19 diltiaZEM [Cardizem] 30 mg PO Q6HR #40 tablet 07/12/19 predniSONE [Deltasone] 10 mg PO [id number] #31 tab 07/12/19 Cephalexin [Keflex] 500 mg PO Q6H #28 capsule 07/07/20 - Allergies Allergies/Adverse Reactions: Allergies Allergy/AdvReac Type Severity Reaction Status Date / Time plaster cast material Allergy Rash Uncoded 07/10/19 14:11 - Social History Does the pt smoke?: No Smoking Status: Former smoker Does the pt drink ETOH?: No Does the pt have substance abuse?: No - Immunizations Immunizations are current?: No Immunizations: TDAP >10years/unknown - POLST Patient has POLST: Yes POLST Status: DNR PD ED PE NORMAL - Vitals Vital signs reviewed: Yes - General General: Alert and oriented X 3, No acute distress - Extremities Extremities: Other (On the dorsum of the right hand there is a 2 cm x 1 cm ulcer with just a bit of purulent material in it. No surrounding cellulitis. No limited range of motion.) - Neuro Neuro: Alert and oriented X 3, Normal speech Results - Vitals Vitals: Vital Signs - 24 hr 07/07/20 11:53 Temperature 36.6 C Heart Rate 50 L Respiratory 18 Rate Blood Pressure 161/100 H O2 Saturation 98 Oxygen O2 Source Room air PD MEDICAL DECISION MAKING - ED course ED course: The wound was cultured and he was started on Keflex, advised to keep their appointment with dermatology. Departure - Departure Disposition: 01 Home, Self Care Clinical Impression: Infected skin ulcer limited to breakdown of skin Condition: Good Record reviewed to determine appropriate education?: Yes Instructions: ED Infec Skin Cellulitis Prescriptions: Cephalexin [Keflex] 500 mg PO Q6H #28 capsule Comments: Followup with the biodiesel process control technician as scheduled, return for new or worsening symptoms.
== END 2020-07-07 12:10 | disposition home or self-care (01) ==
LOC: ED 11:50
DX: L98.491 Non-pressure chronic ulcer of skin of other sites limited to breakdown of skin (principal); L08.9 Local infection of the skin and subcutaneous tissue, unspecified; Z87.891 Personal history of nicotine dependence; I10 Essential (primary) hypertension; Z79.82 Long term (current) use of aspirin; F03.90 Unspecified dementia, unspecified severity, without behavioral disturbance, psychotic disturbance, mood disturbance, and anxiety
CPT/HCPCS: 87070; 87077; 87181; 87205; 99283

== ENCOUNTER 2020-08-28 09:52 | Outpatient (CLI) | payer MEDICARE ==
[2020-08-28 15:10] LABS: BASOPHILS # (AUTO) 0.1 10^3/uL (0.0-0.1); BASOPHILS % (AUTO) 0.9 %; EOSINOPHILS # (AUTO) 0.4 10^3/uL (0.0-0.7); EOSINOPHILS % (AUTO) 4.5 %; HGB - HEMOGLOBIN 12.1 g/dL (14.0-18.0); LYMPHOCYTES # (AUTO) 1.6 10^3/uL (1.5-3.5); MEAN CORPUSCULAR HEMOGLOBIN 31.4 pg (27.0-31.0); MEAN CORPUSCULAR HGB CONC 32.3 g/dL (32.0-36.0); MEAN CORPUSCULAR VOLUME 97.4 fL (80.0-94.0); MONOCYTES # (AUTO) 0.9 10^3/uL (0.0-1.0); NEUTROPHILS # (AUTO) 4.9 10^3/uL (1.5-6.6); NEUTROPHILS % (AUTO) 63.2 %; PLT - PLATELET COUNT 179 10^3/uL (130-450); RED BLOOD COUNT 3.85 10^6/uL (4.70-6.10); RED CELL DISTRIBUTION WIDTH 12.4 % (12.0-15.0); WHITE BLOOD COUNT 7.7 x10^3/uL (4.8-10.8)
[2020-08-28 17:06] LABS: ALBUMIN 3.7 g/dL (3.2-5.5); ALBUMIN/GLOBULIN RATIO 1.4 (1.0-2.2); ALKALINE PHOSPHATASE 61 IU/L (42-121); ALT ALANINE AMINOTRANSFERASE 11 IU/L (10-60); AST ASPARTATE AMINOTRANSFERASE 13 IU/L (10-42); BILIRUBIN,TOTAL 0.6 mg/dL (0.2-1.0); BUN - BLOOD UREA NITROGEN 31 mg/dL (6-20); CARBON DIOXIDE - CO2 26 mmol/L (21-32); CHLORIDE 105 mmol/L (101-111); CHOL/HDL RATIO 2.8 (<5.0); CHOLESTEROL 146 mg/dL; CREATININE 1.2 mg/dL (0.6-1.2); GLUCOSE 93 mg/dL (70-100); HDL CHOLESTEROL 52 mg/dL; LDL CHOLESTEROL,CALCULATED 82 mg/dL; LDL/HDL RATIO 1.6 (<3.6); SODIUM 136 mmol/L (135-145); TOTAL PROTEIN 6.3 g/dL (6.7-8.2); VLDL CHOLESTEROL 12 mg/dL
== END 2020-08-28 09:53 | disposition home or self-care (01) ==
LOC: LAB.S 09:52
PROVIDERS: ATTEND Registered Nurse
DX: I44.7 Left bundle-branch block, unspecified (principal); N40.1 Benign prostatic hyperplasia with lower urinary tract symptoms; F03.90 Unspecified dementia, unspecified severity, without behavioral disturbance, psychotic disturbance, mood disturbance, and anxiety; I12.9 Hypertensive chronic kidney disease with stage 1 through stage 4 chronic kidney disease, or unspecified chronic kidney disease; N18.30 Chronic kidney disease, stage 3 unspecified; N13.8 Other obstructive and reflux uropathy
CPT/HCPCS: 36415; 80053; 80061; 83721; 84153; 84443; 85025

== ENCOUNTER 2020-09-17 11:06 | Emergency (ER) | payer MEDICARE ==
--- NOTE | 2020-09-17 11:36 | ED Physician Documentation ---
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 He does not have fever he does have enough pain associated with this that he is having difficulty sleeping at night. Review of Systems Constitutional: denies: Fever Eyes: denies: Decreased vision Ears: denies: Ear pain Nose: denies: Congestion Throat: denies: Sore throat Respiratory: denies: Dyspnea, Cough GI: denies: Vomiting PD PAST MEDICAL HISTORY - Past Medical History Cardiovascular: Hypertension, Arrhythmia, Other Respiratory: COPD Neuro: Dementia, Peripheral neuropathy Endocrine/Autoimmune: None GI: None, GERD, C.difficile, Other : Renal insuffiency HEENT: Chronic hearing loss Psych: Anxiety Musculoskeletal: Gout, Chronic back pain Derm: None - Past Surgical History Past Surgical History: Yes Ortho: Other Derm: Skin cancer surgery - Present Medications Home Medications: Ambulatory Orders Medication Instructions Recorded Confirmed Acetaminophen 1,000 mg PO TID PRN 12/24/15 07/10/19 Tamsulosin [Flomax] 0.4 mg PO DAILY 12/24/15 07/10/19 Aspirin [Adult Aspirin] 81 mg PO DAILY 09/03/18 07/10/19 Calcium Carbonate/Vitamin D3 1 each PO BID 09/03/18 07/10/19 [Calcium 500 mg-Vit D3 600 Unit] Guaifenesin/Pseudoephedrne HCl 1 each PO DAILY 09/03/18 07/10/19 [Mucinex D ER 600-60 mg Tablet] Lactobacillus Acidophilus 1 each PO DAILY 09/03/18 07/10/19 [Probiotic Acidophilus] Citalopram Hydrobromide 40 mg PO DAILY 09/07/18 07/10/19 [Citalopram HBr] HYDROcod/ACETAM 5/325 [[place] 5/325] 1 tab PO DAILY PRN 07/10/19 07/10/19 Docusate Sodium 250Mg Capsule 250 mg PO DAILY PRN #10 capsule 07/12/19 [Colace 250Mg Capsule] Ipratropium [Atrovent] 1 puffs INH Q6H PRN #1 inhaler 07/12/19 Levalbuterol [Xopenex] 1 puffs INH Q4-6H PRN #1 inhaler 07/12/19 Nystatin 1 each MC BID PRN #4 powder.ea. 07/12/19 carvediloL [Coreg] 12.5 mg PO BID #20 tablet 07/12/19 diltiaZEM [Cardizem] 30 mg PO Q6HR #40 tablet 07/12/19 predniSONE [Deltasone] 10 mg PO [id number] #31 tab 07/12/19 Cephalexin [Keflex] 500 mg PO Q6H #28 capsule 07/07/20 Hydrocodone/Acetaminophen 1 - 2 each PO Q6H PRN #14 tablet 09/17/20 [Hydrocodone-Acetamin 5-325 mg] Sulfamethoxazole/Trimethoprim 1 each PO BID #14 tablet 09/17/20 [Sulfamethoxazole-Tmp Ds Tablet] - Allergies Allergies/Adverse Reactions: Allergies Allergy/AdvReac Type Severity Reaction Status Date / Time plaster cast material Allergy Rash Uncoded 07/10/19 14:11 - Social History Does the pt smoke?: No Smoking Status: Former smoker Does the pt drink ETOH?: No Does the pt have substance abuse?: No - Immunizations Immunizations are current?: No Immunizations: TDAP >10years/unknown - POLST Patient has POLST: Yes POLST Status: DNR PD ED PE NORMAL - Vitals Vital signs reviewed: Yes (normal ) - General General: No acute distress, Well developed/nourished - HEENT HEENT: Atraumatic, PERRL, EOMI - Respiratory Respiratory: No respiratory distress - Derm Derm: Normal color, Warm and dry - Extremities Extremities: Other (There is swelling and erythema to the right dorsal foream. There are multiple 1cm leasions to the surface of the skin that are reddened, tender and superficially expressing pus. Distal n/v is intact. There is surrounding cellulitis. ) - Neuro Neuro: Alert and oriented X 3, medical claims assistant 2-12 intact, No motor deficit, No sensory deficit, Normal speech Eye Opening: Spontaneous Motor: Obeys Commands Verbal: Oriented GCS Score: 15 - Psych Psych: Normal mood, Normal affect Results - Vitals Vitals: Vital Signs - 24 hr 09/17/20 11:14 Temperature 36.8 C Heart Rate 52 L Respiratory 16 Rate Blood Pressure 120/50 L O2 Saturation 97 Oxygen O2 Source Room air PD MEDICAL DECISION MAKING - ED course Complexity details: considered differential, d/w patient, d/w family ED course: 85-year-old male was undergoing treatment for basal cell health carcinoma on the forearm has developed a superficial infection in the skin with the appearance of cellulitis and superficial pustules. One of the pustules is unroofed and cultured. His prior culture grew a beta lactamase positive staph and today we will place him on some . I have encouraged the patient to do warm compresses at least twice per day Departure - Departure Disposition: Home, Self Care Clinical Impression: Cellulitis of forearm, right Condition: Stable Instructions: ED Infec Skin Cellulitis Follow-Up: Kelly Rich ARNP [Credentialed Staff Provider] - Prescriptions: Hydrocodone/Acetaminophen [Hydrocodone-Acetamin 5-325 mg] 1 - 2 each PO Q6H PRN #14 tablet PRN Reason: Pain Sulfamethoxazole/Trimethoprim [Sulfamethoxazole-Tmp Ds Tablet] 1 each PO BID #14 tablet
[2020-09-17 11:44] VITALS: BP 146/90
== END 2020-09-17 12:00 | disposition home or self-care (01) ==
LOC: ED 11:06
DX: T81.41XA Infection following a procedure, superficial incisional surgical site, initial encounter (principal); L03.113 Cellulitis of right upper limb; Z85.828 Personal history of other malignant neoplasm of skin; I10 Essential (primary) hypertension; G62.9 Polyneuropathy, unspecified; Z79.82 Long term (current) use of aspirin; Z87.891 Personal history of nicotine dependence
CPT/HCPCS: 87070; 87181; 87205; 99283; 99284

== ENCOUNTER 2020-10-25 15:48 | Outpatient (CLI) | payer MEDICARE | END 2020-10-25 23:59 | disposition home or self-care (01) | LOC: LAB.R 15:48 | PROVIDERS: ATTEND Emergency Medicine | DX: L02.612 Cutaneous abscess of left foot (principal) | CPT/HCPCS: 87070; 87077; 87181; 87205 ==

== ENCOUNTER 2020-10-25 15:51 | Outpatient (CLI) | payer MEDICARE ==
--- NOTE | 2020-10-25 16:37 | XRAY Report ---
PROCEDURE: Foot 3 View LT INDICATIONS: ABSCESS, LEFT FOOT TECHNIQUE: 3 views of the foot were acquired. COMPARISON: None FINDINGS: Bones: 3 views of the left foot were performed. There is a lytic bony defect on the superior lateral aspect of the distal metatarsal with overhanging edges likely due to osteomyelitis. There is no fract ure or dislocation. Severe degenerative changes of the interphalangeal joints and the first and secon d metatarsophalangeal joint are seen. A hallux valgus deformity is noted. There has likely been osteo miranda of the distal third metatarsal. Soft tissues: No tibiotalar joint effusion. Achilles tendon appears normal. No soft tissue gas or radiopaque foreign bodies. 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 Reviewed by: Marino Mariee on 10/25/2020 4:36 PM PST Approved by: Marino Mariee on 10/25/2020 4:36 PM [facility] Station ID: [id number]
== END 2020-10-25 23:59 | disposition home or self-care (01) ==
LOC: DI.S 15:51
PROVIDERS: ATTEND Emergency Medicine
DX: R93.6 Abnormal findings on diagnostic imaging of limbs (principal)

== ENCOUNTER 2020-10-25 17:05 | Inpatient (IN) | payer MEDICARE ==
--- NOTE | 2020-10-25 17:23 | ED Physician Documentation ---
History of Present Illness - Stated complaint Stated Complaint: LT FOOT SWOLLEN/PX - Additonal information Additional information: 85-year-old male is brought to the emergency department for evaluation of suspected osteomyelitis in the left great metatarsal. History is somewhat d ifficult to obtain from the patient as he is demented. I did speak with Dr. Edilia Handley the referring physician and he reported that the patient has been having pain in the foot for the better part of a month. Today he reported that he unroofed an abscess over the bunion of the great toe. A subsequent x-ray was consistent with osteomyelitis of the foot. Therefore the patient is referred to the ER for further evaluation and management. I did speak with the patient's Dennis on the phone. She does report he has a history of dementia COPD and hypertension. She is unsure the names of the medications he takes at this time. He is not anticoagulated Patient's denies that he has had any fevers complaints of chest pain or abdominal pain. His biggest complaint as of recent is the pain in the left foot Review of Systems Unable to obtain: Dementia, Other (per ) Constitutional: denies: Fever, Chills Cardiac: denies: Chest pain / pressure, Palpitations Respiratory: denies: Dyspnea, Cough GI: denies: Abdominal Pain, Nausea, Vomiting, Bloody / black stool : denies: Dysuria Skin: reports: Lesions (bunion left great toe) Musculoskeletal: reports: Joint pain (left great toe) Neurologic: reports: Reviewed and negative PD PAST MEDICAL HISTORY - Past Medical History Cardiovascular: Hypertension, Arrhythmia, Other Respiratory: COPD Neuro: Dementia, Peripheral neuropathy Endocrine/Autoimmune: None GI: None, GERD, C.difficile, Other : Renal insuffiency HEENT: Chronic hearing loss Psych: Anxiety Musculoskeletal: Gout, Chronic back pain Derm: None - Past Surgical History Past Surgical History: Yes Ortho: Other Derm: Skin cancer surgery - Present Medications Home Medications: Ambulatory Orders Medication Instructions Recorded Confirmed Acetaminophen 1,000 mg PO TID PRN 12/24/15 07/10/19 Tamsulosin [Flomax] 0.4 mg PO DAILY 12/24/15 07/10/19 Aspirin [Adult Aspirin] 81 mg PO DAILY 09/03/18 07/10/19 Calcium Carbonate/Vitamin D3 1 each PO BID 09/03/18 07/10/19 [Calcium 500 mg-Vit D3 600 Unit] Guaifenesin/Pseudoephedrne HCl 1 each PO DAILY 09/03/18 07/10/19 [Mucinex D ER 600-60 mg Tablet] Lactobacillus Acidophilus 1 each PO DAILY 09/03/18 07/10/19 [Probiotic Acidophilus] Citalopram Hydrobromide 40 mg PO DAILY 09/07/18 07/10/19 [Citalopram HBr] HYDROcod/ACETAM 5/325 [[place] 5/325] 1 tab PO DAILY PRN 07/10/19 07/10/19 Docusate Sodium 250Mg Capsule 250 mg PO DAILY PRN #10 capsule 07/12/19 [Colace 250Mg Capsule] Ipratropium [Atrovent] 1 puffs INH Q6H PRN #1 inhaler 07/12/19 Levalbuterol [Xopenex] 1 puffs INH Q4-6H PRN #1 inhaler 07/12/19 Nystatin 1 each MC BID PRN #4 powder.ea. 07/12/19 carvediloL [Coreg] 12.5 mg PO BID #20 tablet 07/12/19 diltiaZEM [Cardizem] 30 mg PO Q6HR #40 tablet 07/12/19 predniSONE [Deltasone] 10 mg PO [id number] #31 tab 07/12/19 Cephalexin [Keflex] 500 mg PO Q6H #28 capsule 07/07/20 Hydrocodone/Acetaminophen 1 - 2 each PO Q6H PRN #14 tablet 09/17/20 [Hydrocodone-Acetamin 5-325 mg] Sulfamethoxazole/Trimethoprim 1 each PO BID #14 tablet 09/17/20 [Sulfamethoxazole-Tmp Ds Tablet] - Allergies Allergies/Adverse Reactions: Allergies Allergy/AdvReac Type Severity Reaction Status Date / Time trichloromonofluoromethane Allergy Unknown Rash Verified 10/25/20 18:13 [From Castblast] - Social History Does the pt smoke?: No Smoking Status: Former smoker Does the pt drink ETOH?: No Does the pt have substance abuse?: No - Immunizations Immunizations are current?: No Immunizations: TDAP >10years/unknown - POLST Patient has POLST: Yes POLST Status: DNR PD ED PE EXPANDED - General General: Alert, No acute distress, Well developed/nourished - Cardiac Cardiac: Regular Rate, Murmur Present, Radial strong equal, Pedal strong equal, Cap refill < 2 sec - Respiratory Respiratory: Clear to ausultation darlyn. No: Distress, Labored - Abdomen Abdomen: Normal Bowel sounds. No: Tender to palpation - Derm Derm: Normal color, Rash. No: Petecchiae, Purpura - Extremities Extremities: Left foot, Pedal edema L, Pedal Pulses Present. No: Right calf TTP/cord, Left calf TTP/cord - Neuro Neuro: Alert and Oriented X 3, CNII-XII intact - GCS Eye Opening: Spontaneous Motor: Obeys Commands Verbal: Oriented Total: 15 Results - Vitals Vitals: Vital Signs - 24 hr 10/25/20 17:20 Temperature 36.9 C Heart Rate 61 Respiratory 18 Rate Blood Pressure 134/69 H O2 Saturation 99 Oxygen O2 Source Room air - EKG (time done) 1825 Rate: Rate (enter#) (61) Rhythm: NSR, Other (with PVC) [place]: Normal Intervals: Other (non specific IVCD) QRS: Normal Ischemia: Normal ST segments Compare to prior EKG: Unchanged from prior EKG Computer interpretation: Agree with computer - Labs Labs: Laboratory Tests 10/25/20 10/25/20 10/25/20 17:39 17:39 17:39 WBC 12.7 H RBC 3.70 L Hgb 11.7 L Hct 36.2 L MCV 97.8 H MCH 31.6 H MCHC 32.3 RDW 12.1 Plt Count 158 MPV 9.9 Neut # (Auto) 9.1 H Lymph # (Auto) 1.7 Humphreys # (Auto) 1.6 H Eos # (Auto) 0.3 Baso # (Auto) 0.1 Absolute Nucleated RBC 0.00 Band Neuts % (Manual) Not Reportable Abnorm Lymph % (Manual) Not Reportable Nucleated RBC % 0.0 Neutrophils # (Manual) Not Reportable Lymphocytes # (Manual) Not Reportable Monocytes # (Manual) Not Reportable Eosinophils # (Manual) Not Reportable Basophils # (Manual) Not Reportable Differential Comment MANUAL=AUTO DIFF Manual Slide Review Indicated Platelet Estimate NORMAL (130-450,000) Platelet Morphology NORMAL APPEARANCE RBC Morph Micro Appear NORMAL APPEARANCE ESR Sodium 135 Potassium 4.7 Chloride 102 Carbon Dioxide 24 Anion Gap 9.0 BUN 32 H Creatinine 1.2 Estimated GFR (MDRD) 58 L Glucose 100 Lactic Acid 1.1 Calcium 8.7 Total Bilirubin 0.9 AST 13 ALT 10 Alkaline Phosphatase 66 C-Reactive Protein 2.4 H Total Protein 6.3 L Albumin 3.8 Globulin 2.5 Albumin/Globulin Ratio 1.5 10/25/20 17:39 WBC RBC Hgb Hct MCV MCH MCHC RDW Plt Count MPV Neut # (Auto) Lymph # (Auto) Humphreys # (Auto) Eos # (Auto) Baso # (Auto) Absolute Nucleated RBC Band Neuts % (Manual) Abnorm Lymph % (Manual) Nucleated RBC % Neutrophils # (Manual) Lymphocytes # (Manual) Monocytes # (Manual) Eosinophils # (Manual) Basophils # (Manual) Differential Comment Manual Slide Review Platelet Estimate Platelet Morphology RBC Morph Micro Appear ESR 11 Sodium Potassium Chloride Carbon Dioxide Anion Gap BUN Creatinine Estimated GFR (MDRD) Glucose Lactic Acid Calcium Total Bilirubin AST ALT Alkaline Phosphatase C-Reactive Protein Total Protein Albumin Globulin Albumin/Globulin Ratio - Rads (name of study) left foot Radiology: Final report received (findings are consistent with osteomyelitis of the head of the first metatarsal) PD MEDICAL DECISION MAKING - ED course Complexity details: reviewed results, re-evaluated patient, considered differential, d/w patient ED course: 85-year-old male was brought to the emergency department for evaluation of left foot cellulitis and concern for osteomyelitis in the MCP joint of the great toe. He has reportedly been having pain in the foot that is been increasing over the last month. He does have a known history of a bunion of the great toe. He was seen at the walk-in clinic where superficial abscess was deroofed. However subsequent x-ray did suggest bony erosion and osteomyelitis at the MCP joint. He is therefore referred to the emergency department. Here in the emergency department he does have Moderate leukocytosis and a mild CRP elevation. His sedimentation rate is normal. Blood cultures were obtained as well as a deep wound culture of the abscess. Patient was initiated on Ceftriaxone and vancomycin. I discussed the case with Dr. Ny in addition orthopedist on-call. He does recommend the patient be admitted to the hospital. He will consult tomorrow on the foot. I have spoken with Dr. Jeremy Lima hospitalist who agrees to bring the patient in for further evaluation and treatment. Departure - Departure Disposition: [facility] DC/Xfer Clinical Impression: Cellulitis of foot Foot osteomyelitis, left Qualifiers: Osteomyelitis type: unspecified type Qualified Code(s): M86.9 - Osteomyelitis, unspecified Dementia Qualifiers: Dementia type: unspecified type Dementia behavioral disturbance: without behavioral disturbance Qualified Code(s): F03.90 - Unspecified dementia without behavioral disturbance
[2020-10-25 17:48] LABS: BASOPHILS # (AUTO) 0.1 10^3/uL (0.0-0.1); BASOPHILS % (AUTO) 0.5 %; EOSINOPHILS # (AUTO) 0.3 10^3/uL (0.0-0.7); HGB - HEMOGLOBIN 11.7 g/dL (14.0-18.0); LYMPHOCYTES # (AUTO) 1.7 10^3/uL (1.5-3.5); MEAN CORPUSCULAR HEMOGLOBIN 31.6 pg (27.0-31.0); MEAN CORPUSCULAR HGB CONC 32.3 g/dL (32.0-36.0); MEAN CORPUSCULAR VOLUME 97.8 fL (80.0-94.0); MEAN PLATELET VOLUME 9.9 fL (7.4-11.4); MONOCYTES # (AUTO) 1.6 10^3/uL (0.0-1.0); MONOCYTES % (AUTO) 12.4 %; NEUTROPHILS # (AUTO) 9.1 10^3/uL (1.5-6.6); NEUTROPHILS % (AUTO) 71.8 %; PLT - PLATELET COUNT 158 10^3/uL (130-450); RED CELL DISTRIBUTION WIDTH 12.1 % (12.0-15.0); WHITE BLOOD COUNT 12.7 x10^3/uL (4.8-10.8)
[2020-10-25 18:02] LABS: ALBUMIN 3.8 g/dL (3.2-5.5); ALBUMIN/GLOBULIN RATIO 1.5 (1.0-2.2); BILIRUBIN,TOTAL 0.9 mg/dL (0.2-1.0); CALCIUM 8.7 mg/dL (8.5-10.3); CREATININE 1.2 mg/dL (0.6-1.2); CRP - C-REACTIVE PROTEIN 2.4 mg/dL (0-1.0); TOTAL PROTEIN 6.3 g/dL (6.7-8.2)
[2020-10-25] MEDS ORDERED: VANCOMYCIN INJ 1.25 GM in SODIUM CHLORIDE 0.9% 500 ML IV STA (18:08)
[2020-10-25] MEDS ORDERED: cefTRIAXone 2 GM in SODIUM CHLORIDE 0.9% MINIBAG 100 ML IV STA (18:09)
[2020-10-25] MEDS ORDERED: VANCOMYCIN INJ 2 GM in SODIUM CHLORIDE 0.9% 500 ML IV STA (18:11)
[2020-10-25 19:00] LABS: DIFFERENTIAL COMMENT MANUAL=AUTO DIFF; PLATELET ESTIMATE, MANUAL NORMAL (130-450,000) (NORMAL); PLATELET MORPHOLOGY NORMAL APPEARANCE (NORMAL); RBC MORPHOLOGY (MULTIPLE) NORMAL APPEARANCE (NORMAL)
[2020-10-25] MEDS ORDERED: ONDANSETRON ODT 4 MG TABLET TL PRN (19:16)
[2020-10-25] MEDS ORDERED: SODIUM CHLORIDE FLUSH 0.9% 10 ML SYRINGE IVP PRN (19:16)
[2020-10-25] MEDS ORDERED: ONDANSETRON 4 MG/2 ML VIAL IVP PRN (19:16)
--- NOTE | 2020-10-25 19:19 | HISTORY & PHYSICAL EXAMINATION ---
Chief Complaint - Chief Complaint Chief Complaint: Left foot pain History of Present Illness - Admitted From Admitted From:: Home - History Obtained From Records Reviewed: Yes History obtained from: Patient, Spouse, ER Physician, EMR Exam Limitations: Patient has dementia and is a poor historian. - History of Present Illness HPI Comment/Other: This is a 85-year-old male with a past medical history significant for dementia, BPH, SVT, COPD who presents today from home due to concerns of osteomyelitis of the left foot. He was seen on an outpatient basis by Dr. Hummel for an ongoing infection of the left foot. There was concern for abscess today which was drained and he was sent for x-ray of the left foot. This was concerning for osteomyelitis of the head of the left first metatarsal and so he was referred to the emergency department for further evaluation. Most of the history is obtained from his as the patient is a poor historian. She states that he has been struggling with a bunion of the left foot for the past several months. She states for the past month he has been complaining of more pain there and yesterday his pain became more progressive. She noticed that his left toe was also swollen. She did not notice any erythema. She was concerned there may be a fluid collection of pus at the site of the bunion and so she brought him to urgent care today. This is where it was drained and where he went for further imaging. She states he was prescribed antibiotics about a month ago for an infection where he had basal cell cancer of the arm. He completed a course of antibiotics. It appears he was prescribed Bactrim at that time for 1 week. She reports no other use of antibiotics. She states he has not been complaining of fevers or chills. He normally walks with a cane at baseline. He did use a walker today after the debridement at urgent care. There is no history of diabetes. The patient himself today states that he feels well overall. He states the pain is controlled in his left foot at this time. Reports some numbness at the bottom of his left foot. He denies any loss of sensation. He reports no fevers, chills, chest pain, dyspnea. In the emergency department he was found to be afebrile with temperature of 36.9 C. His heart is in the 60s. Blood pressure 130/69. He was not tachypneic and saturating 99% on room air. Labs were significant for white count of 12.7. Lactic acid was normal. CRP was elevated at 2.4. Given the concern for osteomyelitis, medicine was consulted for admission. I did discuss goals of care with the patient and his over the phone. They both confirm that he is a DNR. His POLST form also states that he is a DNR. History - Past Medical History Cardiovascular: reports: Hypertension, Arrhythmia Respiratory: reports: COPD Neuro: reports: Dementia, Peripheral neuropathy Endocrine/Autoimmune: reports: None GI: reports: None, GERD, C.difficile : reports: Renal insuffiency HEENT: reports: Chronic hearing loss Psych: reports: Anxiety Musculoskeletal: reports: Gout, Chronic back pain Derm: reports: None MRSA Hx?: No - Past Surgical History Ortho: reports: Other Derm: reports: Skin cancer surgery - Family & Social History Family History: Mother: , Father: , COPD/Emphysema Family History Comment/Other: Review of records revealed that his father from COPD. His mother in her late 90s. He currently cannot recall his family history and believes his parents are healthy. Living arrangement: At home Living Situation: With spouse/s.o. Social History Notes: Patient lives at home with his , Greta. There is a remote history of smoking but he currently does not smoke or drink alcohol. - POLST Patient has POLST: Yes POLST Status: DNR Meds/Allgy - Home Medications Home Medications: Ambulatory Orders Medication Instructions Recorded Confirmed Acetaminophen 1,000 mg PO TID PRN 12/24/15 07/10/19 Tamsulosin [Flomax] 0.4 mg PO DAILY 12/24/15 07/10/19 Aspirin [Adult Aspirin] 81 mg PO DAILY 09/03/18 10/25/20 Calcium Carbonate/Vitamin D3 1 each PO BID 09/03/18 10/25/20 [Calcium 500 mg-Vit D3 600 Unit] Guaifenesin/Pseudoephedrne HCl 1 each PO DAILY 09/03/18 07/10/19 [Mucinex D ER 600-60 mg Tablet] Lactobacillus Acidophilus 1 each PO DAILY 09/03/18 07/10/19 [Probiotic Acidophilus] Citalopram Hydrobromide 40 mg PO DAILY 09/07/18 07/10/19 [Citalopram HBr] HYDROcod/ACETAM 5/325 [[place] 5/325] 1 tab PO DAILY PRN 07/10/19 07/10/19 Docusate Sodium 250Mg Capsule 250 mg PO DAILY PRN #10 capsule 07/12/19 [Colace 250Mg Capsule] Ipratropium [Atrovent] 1 puffs INH Q6H PRN #1 inhaler 07/12/19 Levalbuterol [Xopenex] 1 puffs INH Q4-6H PRN #1 inhaler 07/12/19 10/25/20 Nystatin 1 each MC BID PRN #4 powder.ea. 07/12/19 carvediloL [Coreg] 12.5 mg PO BID #20 tablet 07/12/19 diltiaZEM [Cardizem] 30 mg PO Q6HR #40 tablet 07/12/19 predniSONE [Deltasone] 10 mg PO [id number] #31 tab 07/12/19 10/25/20 Cephalexin [Keflex] 500 mg PO Q6H #28 capsule 07/07/20 Hydrocodone/Acetaminophen 1 - 2 each PO Q6H PRN #14 tablet 09/17/20 [Hydrocodone-Acetamin 5-325 mg] Sulfamethoxazole/Trimethoprim 1 each PO BID #14 tablet 09/17/20 [Sulfamethoxazole-Tmp Ds Tablet] - Allergies Allergies/Adverse Reactions: Allergies Allergy/AdvReac Type Severity Reaction Status Date / Time trichloromonofluoromethane Allergy Unknown Rash Verified 10/25/20 18:13 [From Castblast] Review of Systems - Constitutional Constitutional: denies: Fatigue, Fever, Chills - Ears, Nose & Throat Ears, Nose & Throat: denies: Nasal discharge, Nasal congestion, Sore throat - Cardiovascular Cariovascular: denies: Palpitations, Chest pain, Exertional dyspnea, Decr. exercise tolerance - Respiratory Respiratory: denies: SOB at rest, SOB with exertion - Gastrointestinal Gastrointestinal: denies: Abdominal pain, Nausea, Vomiting - Genitourinary Genitourinary: denies: Dysuria, Frequency, Hematuria - Musculoskeletal Musculoskeletal: reports: Other (Foot pain.). denies: Limited range of motion, Muscle weakness - Integumentary Integumentary: denies: Rash - Neurological Neurological: reports: Numbness. denies: General weakness, Focal weakness - All Other Systems All Other Systems: reports: Reviewed and negative Prior Level of Functionality: He normally ambulates with a cane at baseline. He does have dementia tells me that he is able to perform most of his ADLs. Exam - Vital Signs Reviewed Vital Signs: Yes Vital Signs: Vital Signs x48h Temp Pulse Resp BP Pulse Ox 10/25/20 17:20 36.9 C 61 18 134/69 H 99 - Physical Exam General Appearance: positive: No acute distress, Alert Eyes Bilateral: positive: Normal inspection, Conjunctivae nml ENT: positive: ENT inspection nml Neck: positive: Nml inspection Respiratory: positive: No respiratory distress. negative: Wheezes, Rales Cardiovascular: positive: Regular rate & rhythm, No murmur. negative: Tachycardia, Systolic murmur Abdomen: positive: Non-tender, No distention. negative: Tenderness Skin: positive: Warm, Dry Extremities: positive: Pedal edema (Trace edema in bilateral lower extremities.), Other (D[place] is in place over the medial aspect of the left fo ot.) Neurologic/Psychiatric: positive: Sensation nml, Disoriented to place, Other (Moving all four extremities. No focal deficits.). negative: Disoriented to person, Disoriented to time, Facial droop, Slurred/abnml speech Conclusion/Plan - Problem List (1) Acute osteomyelitis of metatarsal bone of left foot Conclusion/Plan: X-ray of the left foot is consistent with osteomyelitis of the head of the left first metatarsal. He does have a mild leukocytosis as well as a slightly elevated CRP. He was being followed on an outpatient basis by Dr. Hummel. We will admit him for IV antibiotics and start him empirically on vancomycin and cefepime IV. Trend CRP and CBC. Orthopedic surgery consult as he will likely need surgical intervention or at least 6 weeks of IV antibiotics. 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 (2) CKD (chronic kidney disease) stage 3, GFR 30-59 ml/min Conclusion/Plan: His renal function is at baseline with a creatinine of 1.2. We will monitor his renal function daily while he is on IV antibiotics during this hospitalization. (3) COPD (chronic obstructive pulmonary disease) Conclusion/Plan: Stable and not in exacerbation. We will continue his home inhalers. (4) History of paroxysmal supraventricular tachycardia Conclusion/Plan: He is currently rate controlled. We will continue his home diltiazem and carvedilol once dosing is confirmed by pharmacy. (5) Anxiety Conclusion/Plan: We will resume his home citalopram once dosing is confirmed by pharmacy. (6) BPH (benign prostatic hyperplasia) Conclusion/Plan: Stable. Continue Flomax. (7) Dementia Conclusion/Plan: Stable and at baseline. Qualifiers: Dementia type: unspecified type Dementia behavioral disturbance: without behavioral disturbance Qualified Code(s): F03.90 - Unspecified dementia without behavioral disturbance - Lab Results Lab results reviewed: Yes Fish Bones: 10/25/20 17:39 10/25/20 17:39 - Diagnostic Imaging Results Diagnostic Imaging Results: positive: Final report reviewed Core Measures - Anticipated LOS I expect patient to be DC'd or transferred within 96 hours.: Yes - Issues Hospital Issues and Management Plan: 85-year-old male who presents with worsening left foot pain found to have osteomyelitis of the head of the first metatarsal. Will admit for IV anti biotics and consult orthopedic surgery. - DVT/VTE - Prophylaxis VTE/DVT Prophylaxis med ordered at admit?: Yes
[2020-10-25] MEDS ORDERED: LACTATED RINGERS 1,000 ML IV SCH (20:00)
[2020-10-25 20:45] LABS: C. PNEUMONIAE- RESP PCR PANEL NOT DETECTED
[2020-10-25] MEDS: oxyCODONE 5 MG TABLET PO PRN (20:48)
[2020-10-26] MEDS: oxyCODONE 5 MG TABLET PO PRN ×5 (00:53→18:40)
[2020-10-26] MEDS: ACETAMINOPHEN 325 MG TABLET PO PRN ×4 (00:53→16:11)
[2020-10-26] MEDS: SODIUM CHLORIDE FLUSH 0.9% 10 ML SYRINGE IVP SCH ×3 (01:12→16:14)
[2020-10-26] MEDS ORDERED: ALBUTEROL NEB 2.5 MG/3 ML INH PRN (02:20)
[2020-10-26 04:52] LABS: BASOPHILS % (AUTO) 0.5 %; EOSINOPHILS # (AUTO) 0.2 10^3/uL (0.0-0.7); EOSINOPHILS % (AUTO) 1.9 %; HGB - HEMOGLOBIN 11.1 g/dL (14.0-18.0); LYMPHOCYTES # (AUTO) 1.3 10^3/uL (1.5-3.5); MEAN CORPUSCULAR HEMOGLOBIN 31.4 pg (27.0-31.0); MEAN CORPUSCULAR HGB CONC 31.8 g/dL (32.0-36.0); MEAN CORPUSCULAR VOLUME 98.6 fL (80.0-94.0); MEAN PLATELET VOLUME 9.8 fL (7.4-11.4); MONOCYTES # (AUTO) 1.4 10^3/uL (0.0-1.0); MONOCYTES % (AUTO) 15.8 %; NEUTROPHILS # (AUTO) 5.9 10^3/uL (1.5-6.6); NEUTROPHILS % (AUTO) 66.6 %; PLT - PLATELET COUNT 149 10^3/uL (130-450); RED BLOOD COUNT 3.54 10^6/uL (4.70-6.10); RED CELL DISTRIBUTION WIDTH 12.1 % (12.0-15.0); WHITE BLOOD COUNT 8.9 x10^3/uL (4.8-10.8)
[2020-10-26 05:09] LABS: CALCIUM 8.7 mg/dL (8.5-10.3); CREATININE 1.3 mg/dL (0.6-1.2); CRP - C-REACTIVE PROTEIN 4.8 mg/dL (0-1.0)
[2020-10-26] MEDS ORDERED: SODIUM CHLORIDE 0.9% 1,000 ML IV SCH ×4 (08:00→17:47)
[2020-10-26] MEDS ORDERED: LEVALBUTEROL 1.25 MG/3 ML NEB INH PRN (08:10)
[2020-10-26] MEDS ORDERED: IPRATROPIUM/ALBUTEROL 3 ML NEB INH PRN (08:10)
[2020-10-26] MEDS: polyethylene glycoL 3350 17 GM PACKET PO SCH (08:48)
[2020-10-26] MEDS: ENOXAPARIN 40 MG/0.4 ML SYRINGE SUBQ SCH (08:48)
[2020-10-26] MEDS ORDERED: CEFEPIME 2 GM in SODIUM CHLORIDE 0.9% MINIBAG 100 ML IV SCH (09:00)
[2020-10-26] MEDS ORDERED: predniSONE 10 MG TABLET PO SCH (09:00)
--- NOTE | 2020-10-26 09:27 | XRAY Report ---
PROCEDURE: Chest 1 View X-Ray INDICATIONS: wheezing and SOB TECHNIQUE: One view of the chest was acquired. COMPARISON: 07/11/2019 FINDINGS: Surgical changes and devices: None. Lungs and pleura: No pleural effusions or pneumothorax. Lungs are clear. Mediastinum: Mediastinal contours appear normal. Heart size is normal. Bones and chest wall: No suspicious bony lesions. Overlying soft tissues appear unremarkable. IMPRESSION: No acute cardiopulmonary disease process. Reviewed by: Jordyn Hernadez MD, PhD on 10/26/2020 9:26 AM [facility] Approved by: Jordyn Hernadez MD, PhD on 10/26/2020 9:26 AM [facility] Station ID: [id number]
[2020-10-26] MEDS: ASPIRIN EC 81 MG TABLET PO SCH (09:29)
[2020-10-26] MEDS ORDERED: predniSONE 20 MG TABLET PO SCH (10:00)
--- NOTE | 2020-10-26 10:40 | PHARMACY PROGRESS NOTE ---
- Best Possible Medication History Admit Date and Time: 10/25/201915 Processed by: Pharmacy Medication History completed: Yes Patient Interview: Completed Secondary Source(s): Physician records, Pharmacy records, Insurance records As the person ultimately responsible for medication therapy, providers are able to order a medication from an existing home medication list in [facility] via the "Reconcile Routine" prior to Confirmation of that medication by business support. Such practice is discouraged except when the physician, in their clinical judgment, deems that a medical need exists for a medication without regard to previous use.
[2020-10-26] MEDS: IPRATROPIUM 0.2 MG/ML NEB INH SCH ×2 (10:49→15:10)
[2020-10-26] MEDS ORDERED: DILTIAZEM HCL 60 MG PO SCH (12:30)
[2020-10-26] MEDS ORDERED: VANCOMYCIN INJ 1.5 GM in SODIUM CHLORIDE 0.9% 500 ML IV SCH (13:00)
[2020-10-26] MEDS ORDERED: diltiaZEM CD 120 MG CAPSULE PO SCH (13:21)
--- NOTE | 2020-10-26 13:30 | PROVIDER PROGRESS NOTE ---
Assessment/Plan - Problem List (1) Foot osteomyelitis, left Qualifiers: Osteomyelitis type: unspecified type Qualified Code(s): M86.9 - Osteomyelitis, unspecified Assessment/Plan: 10/26 Patient has no fever, patient WBC become normal, But CRP increases. Wound culture show gram-positive, sensitivity is pending. recent x-rays suggest left first metatarsal osteomyelitis. Patient is treated with antibiotics cefepime and vancomycin now. Orthopedics surgeon was called for consult. Patient had similar problem on the right big toe and had bone resection in [address] Dumont. We will continue antibiotics, we will follow up orthopedic surgeon assessment this afternoon. Continue pain control (2)pre-operation assessment Patient report patient has no history of myocardial ischemia. But echo do show patient had systolic heart failure, paroxysmal SVT and history of COPD. Patient had a similar surgery 2 years ago done at this hospital with success. Ross perioperative cardiac risk 0.44%, Oleg criteria revised cardiac risk index 0.9% (3)systolic heart failure [facility] Echo show patient EF at 40 to 45%, No aortic stenosis. Patient take Coreg and aspirin in the home. Chest x-ray was unremarkable, patient had a stable respiratory status. Patient is unlikely at Acute heart failure failure. We will continue home medication Coreg, aspirin, continue telemetry (4) CKD (chronic kidney disease) stage 3, GFR 30-59 ml/min Conclusion/Plan: Patient creatinine and BUN is a slightly increased. We will give the patient gently hydration and closely monitor. (5) COPD (chronic obstructive pulmonary disease) Conclusion/Plan: Patient has a history of COPD, patient present wheezy in expiration. But the patient has no acute respiratory distress, has stable oxygen saturation.Patient's also report patient is easy to have wheezing when he is on motion distress. give once steroid, continue breath treatment PRN. (6) History of paroxysmal supraventricular tachycardia Conclusion/Plan: He is currently rate controlled. resume home diltiazem and carvedilol (7) Anxiety Conclusion/Plan: resume his home citalopram (8) BPH (benign prostatic hyperplasia) Conclusion/Plan: Stable. Continue Flomax. (9) Dementia Conclusion/Plan: Stable and at baseline. - Current Meds Current Meds: Current Medications Generic Name Dose Route Start Last Admin Trade Name Freq PRN Reason Stop Dose Admin Acetaminophen 650 mg 10/25/20 19:16 10/26/20 11:36 Acetaminophen 325 Mg Tablet PO 650 mg Q4HR PRN Administration Pain 1 to 4 Aspirin 81 mg 10/26/20 09:00 10/26/20 09:29 Aspirin Ec 81 Mg Tablet PO 81 mg DAILY TONY Administration Enoxaparin Sodium 40 mg 10/26/20 09:00 10/26/20 08:48 Enoxaparin 40 Mg/0.4 Ml Syringe SUBQ 40 mg DAILY TONY Administration Cefepime HCl 2 gm/ Sodium 100 mls @ 200 mls/hr 10/26/20 09:00 10/26/20 09:25 Chloride IV Infused BID TONY Infusion Sodium Chloride 1,000 mls @ 85 mls/hr 10/26/20 08:58 10/26/20 09:25 Normal Saline 0.9% IV 10/27/20 08:29 85 mls/hr .[id number] TONY Administration Ipratropium [place] 0.5 mg 10/26/20 11:00 10/26/20 10:49 Ipratropium 0.2 Mg/Ml Neb INH 0.5 mg RTQ4H TONY Administration Levalbuterol HCl 1.25 mg 10/26/20 08:10 10/26/20 10:49 Levalbuterol 1.25 Mg/3 Ml Neb INH 1.25 mg RTQ4H PRN Administration Shortness of Air/Wheezing Oxycodone HCl 5 mg 10/25/20 19:16 10/26/20 08:48 Oxycodone 5 Mg Tablet PO 5 mg Q4HR PRN Administration Pain 5 to 7 Polyethylene Glycol 17 gm 10/26/20 09:00 10/26/20 08:48 Polyethylene Glycol 3350 17 Gm Packet PO 17 gm DAILY TONY Administration Sodium Chloride 10 ml 10/26/20 01:00 10/26/20 08:49 Sodium Chloride Flush 0.9% 10 Ml Syringe IVP Not Given 0100,0900,1700 TONY - Lab Result Fish Bone Diagrams: 10/26/20 04:45 10/26/20 04:45 - Additional Planning My Orders: My Active Orders 10/26/20 08:07 Echo Transthoracic Complete [ECHO] Routine 10/26/20 08:10 Levalbuterol [Xopenex] 1.25 mg INH RTQ4H PRN 10/26/20 08:56 Nebulizer/MDI Tx. [RC] .Q4 TONY/ Q4 PRN Resp Teach Nebulizer/MDI [RC] .ONCE 10/26/20 08:58 Sodium Chloride 0.9% [Normal Saline 0.9%] 1,000 ml IV 85 mls/hr 10/26/20 09:00 Aspirin EC [Ecotrin] 81 mg PO DAILY 10/26/20 11:00 Ipratropium [Atrovent] 0.5 mg INH RTQ4H 10/26/20 13:21 diltiaZEM CD [Cardizem Cd] 120 mg PO DAILY 10/26/20 14:00 methylPREDNISolone SUCCINATE [SOLU-Medrol (40MG VIAL)] 30 mg IVP TID 10/26/20 21:00 carvediloL [Coreg] 12.5 mg PO BID 10/27/20 09:00 Tamsulosin [Flomax] 0.4 mg PO DAILY Subjective - Subjective Patient Reports: Feeling Better Objective Vital Signs: Vital Signs - 24 hr 10/25/20 10/25/20 10/25/20 17:20 19:00 20:10 Temperature 36.9 C 36.9 C 36.6 C Heart Rate 61 62 Heart Rate [ 65 Brachial] Respiratory 18 18 16 Rate Blood Pressure 134/69 H 132/61 H Blood Pressure 126/69 [Right Brachial artery] O2 Saturation 99 99 100 10/25/20 10/26/20 10/26/20 23:29 03:16 06:35 Temperature 36.7 C Heart Rate 63 Heart Rate [ 61 Brachial] Respiratory 18 120 H 20 Rate Blood Pressure Blood Pressure 118/58 L [Right Brachial artery] O2 Saturation 95 94 10/26/20 10/26/20 08:02 10:49 Temperature 36.8 C Heart Rate 66 Heart Rate [ 60 Brachial] Respiratory 20 14 Rate Blood Pressure Blood Pressure 114/58 L [Right Brachial artery] O2 Saturation 96 Oxygen O2 Source Room air I&O (Last 24 Hrs): Intake and Output Totals x24h 10/24/20 10/25/20 10/26/20 23:59 23:59 23:59 Intake Total 700 2262.833 Output Total 175 100 Balance 525 2162.833 General: Alert, Cooperative, No acute distress HEENT: Atraumatic Neck: Supple Lymphatic: no adenopathy Neuro: Alert, Non Focal Cardiovascular: Regular rate, Normal S1, Normal S2 Respiratory: Chest non-tender, No respiratory distress Extremities: No edema, Other (left big toe is covered by stress. mild erythema and mild swelling is around the big toe.) - Results Results: Laboratory Results WBC 8.9 x10^3/uL (4.8-10.8) 10/26/20 04:45 RBC 3.54 10^6/uL (4.70-6.10) L 10/26/20 04:45 Hgb 11.1 g/dL (14.0-18.0) L 10/26/20 04:45 Hct 34.9 % (42.0-52.0) L 10/26/20 04:45 MCV 98.6 fL (80.0-94.0) H 10/26/20 04:45 MCH 31.4 pg (27.0-31.0) H 10/26/20 04:45 MCHC 31.8 g/dL (32.0-36.0) L 10/26/20 04:45 RDW 12.1 % (12.0-15.0) 10/26/20 04:45 Plt Count 149 10^3/uL (130-450) 10/26/20 04:45 MPV 9.8 fL (7.4-11.4) 10/26/20 04:45 Neut # (Auto) 5.9 10^3/uL (1.5-6.6) 10/26/20 04:45 Lymph # (Auto) 1.3 10^3/uL (1.5-3.5) L 10/26/20 04:45 [place] # (Auto) 1.4 10^3/uL (0.0-1.0) H 10/26/20 04:45 Eos # (Auto) 0.2 10^3/uL (0.0-0.7) 10/26/20 04:45 Baso # (Auto) 0.0 10^3/uL (0.0-0.1) 10/26/20 04:45 Absolute Nucleated RBC 0.00 x10^3/uL 10/26/20 04:45 Band Neuts % (Manual) Not Reportable 10/25/20 17:39 Abnorm Lymph % (Manual) Not Reportable 10/25/20 17:39 Nucleated RBC % 0.0 /100WBC 10/26/20 04:45 Neutrophils # (Manual) Not Reportable 10/25/20 17:39 Lymphocytes # (Manual) Not Reportable 10/25/20 17:39 Monocytes # (Manual) Not Reportable 10/25/20 17:39 Eosinophils # (Manual) Not Reportable 10/25/20 17:39 Basophils # (Manual) Not Reportable 10/25/20 17:39 Differential Comment MANUAL=AUTO DIFF 10/25/20 17:39 Manual Slide Review Indicated 10/25/20 17:39 Platelet Estimate NORMAL (130-450,000) (NORMAL) 10/25/20 17:39 Platelet Morphology NORMAL APPEARANCE (NORMAL) 10/25/20 17:39 RBC Morph Micro Appear NORMAL APPEARANCE (NORMAL) 10/25/20 17:39 ESR 11 mm/Hr (0-20) 10/25/20 17:39 Sodium 137 mmol/L (135-145) 10/26/20 04:45 Potassium 4.4 mmol/L (3.5-5.0) 10/26/20 04:45 Chloride 101 mmol/L (101-111) 10/26/20 04:45 Carbon Dioxide 24 mmol/L (21-32) 10/26/20 04:45 Anion Gap 12.0 (6-13) 10/26/20 04:45 BUN 32 mg/dL (6-20) H 10/26/20 04:45 Creatinine 1.3 mg/dL (0.6-1.2) H 10/26/20 04:45 Estimated GFR (MDRD) 52 (>89) L 10/26/20 04:45 Glucose 97 mg/dL (70-100) 10/26/20 04:45 Lactic Acid 1.1 mmol/L (0.5-2.2) 10/25/20 17:39 Calcium 8.7 mg/dL (8.5-10.3) 10/26/20 04:45 Total Bilirubin 0.9 mg/dL (0.2-1.0) 10/25/20 17:39 AST 13 IU/L (10-42) 10/25/20 17:39 ALT 10 IU/L (10-60) 10/25/20 17:39 Alkaline Phosphatase 66 IU/L (42-121) 10/25/20 17:39 C-Reactive Protein 4.8 mg/dL (0-1.0) H 10/26/20 04:45 Total Protein 6.3 g/dL (6.7-8.2) L 10/25/20 17:39 Albumin 3.8 g/dL (3.2-5.5) 10/25/20 17:39 Globulin 2.5 g/dL (2.1-4.2) 10/25/20 17:39 Albumin/Globulin Ratio 1.5 (1.0-2.2) 10/25/20 17:39 Nasal Adenovirus (PCR) NOT DETECTED 10/25/20 19:50 Nasal B. parapertussis DNA (PCR) NOT DETECTED 10/25/20 19:50 Nasal Coronavir 229E PCR NOT DETECTED 10/25/20 19:50 Nasal Coronavir HKU1 PCR NOT DETECTED 10/25/20 19:50 Nasal Coronavir NL63 PCR NOT DETECTED 10/25/20 19:50 Nasal Coronavir OC43 PCR NOT DETECTED 10/25/20 19:50 Nasal Enterovir/Rhinovir PCR NOT DETECTED 10/25/20 19:50 Nasal Influenza B PCR NOT DETECTED 10/25/20 19:50 Nasal Influenza A PCR NOT DETECTED 10/25/20 19:50 Nasal Parainfluen 1 PCR NOT DETECTED 10/25/20 19:50 Nasal Parainfluen 2 PCR NOT DETECTED 10/25/20 19:50 Nasal Parainfluen 3 PCR NOT DETECTED 10/25/20 19:50 Nasal Parainfluen 4 PCR NOT DETECTED 10/25/20 19:50 Nasal RSV (PCR) NOT DETECTED 10/25/20 19:50 Nasal B.pertussis DNA PCR NOT DETECTED 10/25/20 19:50 Nasal C.pneumoniae (PCR) NOT DETECTED 10/25/20 19:50 Olu Human Metapneumo PCR NOT DETECTED 10/25/20 19:50 Nasal M.pneumoniae (PCR) NOT DETECTED 10/25/20 19:50 Nasal SARS-CoV-2 (PCR) NOT DETECTED 10/25/20 19:50 - Procedures Procedures: Procedures DRAINAGE OF R HAND SUBCU/FASCIA, PERC APPROACH, DIAGN (12/20/15) DRAINAGE OF RIGHT HAND SKIN, EXTERNAL APPROACH, DIAGNOSTIC (12/20/15) EXCISION OF BACK SKIN, EXTERNAL APPROACH, DIAGNOSTIC (12/20/15) EXCISION OF RIGHT HAND SKIN, EXTERNAL APPROACH (12/20/15) EXCISION OF RIGHT METATARSAL-PHALANGEAL JOINT, OPEN APPROACH (09/07/18) INSERTION OF INFUSION DEV INTO SUP VENA CAVA, PERC APPROACH (09/07/18) ABX Reporting Has patient been on IV antibiotics over the past 48 hours?: Yes Current Medications - Current Medications Current Medications: Active Medications Acetaminophen (Acetaminophen 325 Mg Tablet) 650 mg PO Q4HR PRN PRN Reason: Pain 1 to 4 Last Admin: 10/26/20 11:36 Dose: 650 mg Documented by: Aspirin (Aspirin Ec 81 Mg Tablet) 81 mg PO DAILY [facility] Last Admin: 10/26/20 09:29 Dose: 81 mg Documented by: Carvedilol (Carvedilol 12.5 Mg Tablet) 12.5 mg PO BID [facility] Citalopram Hydrobromide (Citalopram Hydrobromide 20 Mg Tablet) 40 mg PO DAILY [facility] Enoxaparin Sodium (Enoxaparin 40 Mg/0.4 Ml Syringe) 40 mg SUBQ DAILY [facility] Last Admin: 10/26/20 08:48 Dose: 40 mg Documented by: Cefepime HCl 2 gm/ Sodium (Chloride) 100 mls @ 200 mls/hr IV BID [facility] Last Infusion: 10/26/20 09:25 Dose: Infused Documented by: Vancomycin HCl 1 gm/Vancomycin HCl 500 mg/ Sodium Chloride 500 mls @ 250 mls/hr IV Q24H [facility] Sodium Chloride (Normal Saline 0.9%) 1,000 mls @ 75 mls/hr IV .[id number] [facility] Stop: 10/27/20 03:10 Ipratropium [place] (Ipratropium 0.2 Mg/Ml Neb) 0.5 mg INH RTQ4H TONY Last Admin: 10/26/20 10:49 Dose: 0.5 mg Documented by: Levalbuterol HCl (Levalbuterol 1.25 Mg/3 Ml Neb) 1.25 mg INH RTQ4H PRN PRN Reason: Shortness of Air/Wheezing Last Admin: 10/26/20 10:49 Dose: 1.25 mg Documented by: Ondansetron HCl (Ondansetron Odt 4 Mg Tablet) 4 mg TL Q6HR PRN PRN Reason: Nausea / Vomiting Ondansetron HCl (Ondansetron 4 Mg/2 Ml Vial) 4 mg IVP Q6HR PRN PRN Reason: Nausea / Vomiting Oxycodone HCl (Oxycodone 5 Mg Tablet) 5 mg PO Q4HR PRN PRN Reason: Pain 5 to 7 Last Admin: 10/26/20 13:39 Dose: 5 mg Documented by: Polyethylene Glycol (Polyethylene Glycol 3350 17 Gm Packet) 17 gm PO DAILY [facility] Last Admin: 10/26/20 08:48 Dose: 17 gm Documented by: Saccharomyces Boulardii (Saccharomyces Boulardii 250 Mg Capsule) 250 mg PO BIDWM [facility] Sodium Chloride (Sodium Chloride Flush 0.9% 10 Ml Syringe) 10 ml IVP PRN PRN PRN Reason: NEEDED PER PROVIDER ORDERS Sodium Chloride (Sodium Chloride Flush 0.9% 10 Ml Syringe) 10 ml IVP 0100,0900,1700 [facility] Last Admin: 10/26/20 08:49 Dose: Not Given Documented by: Tamsulosin HCl (Tamsulosin 0.4 Mg Capsule) 0.4 mg PO DAILY [facility] Acetaminophen 1,000 mg PO TID PRN 12/24/15 Tamsulosin [Flomax] 0.4 mg PO DAILY 12/24/15 Aspirin [Adult Aspirin] 81 mg PO DAILY 09/03/18 Calcium Carbonate/Vitamin D3 [Calcium 500 mg-Vit D3 600 Unit] 1 each PO BID 09/03/18 Citalopram Hydrobromide [Citalopram HBr] 40 mg PO DAILY 09/07/18 Diltiazem HCl [Diltiazem 12Hr ER] 60 mg PO BID 10/26/20
[2020-10-26] MEDS ORDERED: methylPREDNISolone SUCCINATE 40 MG/ML VIAL IVP SCH (14:00)
[2020-10-26] MEDS: CITALOPRAM HYDROBROMIDE 20 MG TABLET PO SCH (14:45)
[2020-10-26] MEDS: SACCHAROMYCES BOULARDII 250 MG CAPSULE PO SCH ×2 (14:46→16:11)
--- NOTE | 2020-10-26 15:07 | PHARMACY PROGRESS NOTE ---
- Therapy Status Vancomycin regimen day #: 2 Therapy status: Awaiting steady state Basis for treatment: Empirical Treatment indication: OSTEOMYELITIS Trough goal: 15-20 Concurrent antibiotics: CEFEPIME - MARIBEL Risk Acute Kidney Injury risk factors: Baseline CrCl <50, Goal trough >15 - Monitoring and Recommendation Clinical response to treatment: I&O Previous 24 hours 10/24/20 10/25/20 10/26/20 23:59 23:59 23:59 Intake Total 700 2722.750 Output Total 175 100 Balance 525 2622.750 Lab Results 10/26/20 10/25/20 10/25/20 04:45 17:39 17:39 ESR 11 BUN 32 H 32 H Creatinine 1.3 H 1.2 Estimated GFR (MDRD) 52 L 58 L Cultures 10/25/20 18:40 Foot - Left Wound Culture - Preliminary Monitoring plan: Daily serum creatinine Next trough due prior to maintenance dose #: 3 Next trough due (date/time): 10/28 AT 1730 Areas for additional monitoring: IV to PO when appropriate, Therapy de- escalation based on culture results Pharmacy recommendation: Continue current regime
--- NOTE | 2020-10-26 17:49 | CONSULTATION NOTE ---
Referring Provider Name of Referring Provider:: Sanchez Consult Date: 10/26/20 Chief Complaint - Chief Complaint Chief Complaint: Pain, swelling, redness and drainage from metatarsophalangeal joint left gr History of Present Illness - History Obtained From History obtained from: - History of Present Illness HPI Comment/Other: This is an 85-year-old man who has had some redness and swelling about the left great toe for perhaps a week but over the past 1 to 2 days it has become markedly worse with more localized swelling and redness and drainage that started yesterday. Because of the pain and drainage, he was seen in the emergency room yesterday evening. He has no history of ulceration about the left foot, no history of diabetes, no cigarette smoking history but does have a history of gouty arthritis. His x-rays and drainage were felt to be consistent with an osteomyelitis over the longstanding bunion deformity. He has had mu ltiple lesser toe surgeries to the foot in the past which has led to lesser toe deformities and toes that are not functional. In addition, he has developed a hallux valgus deformity that is been present for a number of years. He does wear diabetic type shoes. He was admitted overnight and I was asked to consult today. He was started on intravenous antibiotics with relatively little improvement but he has been at bedrest mostly. He denies symptoms of neuropathy but is not the best historian as he does have dementia.When I spoke to his , he did have a surgery in the past year in which there was some question of infection but after the surgery, it was felt to be related to gout. History - Past Medical History Cardiovascular: reports: Hypertension, Arrhythmia, Other Respiratory: reports: COPD Neuro: reports: Dementia, Peripheral neuropathy Endocrine/Autoimmune: reports: None GI: reports: None, GERD, C.difficile, Other : reports: Renal insuffiency HEENT: reports: Chronic hearing loss Psych: reports: Anxiety Musculoskeletal: reports: Gout, Chronic back pain Derm: reports: None MRSA Hx?: No - Past Surgical History Ortho: reports: Other Derm: reports: Skin cancer surgery - Family & Social History Family History: Mother: , Father: , COPD/Emphysema Family History Comment/Other: pt report his father from COPD and his mother at age 99 yrs. he had two daughters. he is living with his at [place]. his daughter is close to him to live. Living arrangement: At home Living Situation: With spouse/s.o. Social History Notes: pt is reported to have cigarett smoking in the past. he denies alcohol and drug issue. - POLST Patient has POLST: Yes POLST Status: DNR Meds/Allgy - Home Medications Home Medications: Ambulatory Orders Medication Instructions Recorded Confirmed Acetaminophen 1,000 mg PO TID PRN 12/24/15 10/26/20 Tamsulosin [Flomax] 0.4 mg PO DAILY 12/24/15 10/26/20 Aspirin [Adult Aspirin] 81 mg PO DAILY 09/03/18 10/26/20 Calcium Carbonate/Vitamin D3 1 each PO BID 09/03/18 10/26/20 [Calcium 500 mg-Vit D3 600 Unit] Citalopram Hydrobromide 40 mg PO DAILY 09/07/18 10/26/20 [Citalopram HBr] Ipratropium [Atrovent] 1 puffs INH Q6H PRN #1 inhaler 07/12/19 10/26/20 Levalbuterol [Xopenex] 1 puffs INH Q4-6H PRN #1 inhaler 07/12/19 10/26/20 carvediloL [Coreg] 12.5 mg PO BID #20 tablet 07/12/19 10/26/20 Diltiazem HCl [Diltiazem 12Hr ER] 60 mg PO BID 10/26/20 10/26/20 - Allergies Allergies/Adverse Reactions: Allergies Allergy/AdvReac Type Severity Reaction Status Date / Time trichloromonofluoromethane Allergy Unknown Rash Verified 10/25/20 18:13 [From Castblast] Exam - Vital Signs Vital Signs: Vital Signs x48h Temp Pulse Pulse Resp BP Pulse Ox 10/26/20 15:45 36.7 C 71 20 147/72 H 98 10/26/20 15:11 63 20 10/26/20 10:49 66 14 - Physical Exam General Appearance: positive: No acute distress Peripheral Pulses: positive: 2+ Skin: negative: Other (Sinus from medial aspect left great toe metatarsal phalangeal joint measuring 2 mm to 3 mm at most) Extremities: negative: Other (Left great toe with hallux valgus, hallux rigidus, sinus from the medial aspect of the metatarsal phalangeal joint draining white material consistency of toothpaste) Neurologic/Psychiatric: positive: Oriented x3, Motor nml, Sensation nml Conclusion and Plan - Lab Results Laboratory Results 10/26/20 17:10: Fluid Crystals MONOSODIUM URATE 10/26/20 04:45: Sodium 137, Potassium 4.4, Chloride 101, Carbon Dioxide 24, Anion Gap 12.0, BUN 32 H, Creatinine 1.3 H, Estimated GFR (MDRD) 52 L, Glucose 97, Calcium 8.7, C-Reactive Protein 4.8 H 10/26/20 04:45: WBC 8.9, RBC 3.54 L, Hgb 11.1 L, Hct 34.9 L, MCV 98.6 H, MCH 31.4 H, MCHC 31.8 L, RDW 12.1, Plt Count 149, MPV 9.8, Neut # (Auto) 5.9, Lymph # (Auto) 1.3 L, [place] # (Auto) 1.4 H, Eos # (Auto) 0.2, Baso # (Auto) 0.0, Absolute Nucleated RBC 0.00, Nucleated RBC % 0.0 10/25/20 19:50: Nasal Adenovirus (PCR) NOT DETECTED, Nasal B. parapertussis DNA (PCR) NOT DETECTED, Nasal Coronavir 229E PCR NOT DETECTED, Nasal Coronavir HKU1 PCR NOT DETECTED, Nasal Coronavir NL63 PCR NOT DETECTED, Nasal Coronavir OC43 PCR NOT DETECTED, Nasal Enterovir/Rhinovir PCR NOT DETECTED, Nasal Influenza B PCR NOT DETECTED, Nasal Influenza A PCR NOT DETECTED, Nasal Parainfluen 1 PCR NOT DETECTED, Nasal Parainfluen 2 PCR NOT DETECTED, Nasal Parainfluen 3 PCR NOT DETECTED, Nasal Parainfluen 4 PCR NOT DETECTED, Nasal RSV (PCR) NOT DETECTED, Nasal B.pertussis DNA PCR NOT DETECTED, Nasal C.pneumoniae (PCR) NOT DETECTED, Olu Human Metapneumo PCR NOT DETECTED, Nasal M.pneumoniae (PCR) NOT DETECTED, Nasal SARS-CoV-2 (PCR) NOT DETECTED 10/25/20 17:39: ESR 11 10/25/20 17:39: Lactic Acid 1.1 10/25/20 17:39: Sodium 135, Potassium 4.7, Chloride 102, Carbon Dioxide 24, Anion Gap 9.0, BUN 32 H, Creatinine 1.2, Estimated GFR (MDRD) 58 L, Glucose 100, Calcium 8.7, Total Bilirubin 0.9, AST 13, ALT 10, Alkaline Phosphatase 66, C- Reactive Protein 2.4 H, Total Protein 6.3 L, Albumin 3.8, Globulin 2.5, [place] min/Globulin Ratio 1.5 10/25/20 17:39: WBC 12.7 H, RBC 3.70 L, Hgb 11.7 L, Hct 36.2 L, MCV 97.8 H, MCH 31.6 H, MCHC 32.3, RDW 12.1, Plt Count 158, MPV 9.9, Neut # (Auto) 9.1 H, Lymph # (Auto) 1.7, [place] # (Auto) 1.6 H, Eos # (Auto) 0.3, Baso # (Auto) 0.1, Absolute Nucleated RBC 0.00, Band Neuts % (Manual) Not Reportable, Abnorm Lymph % (Manual) Not Reportable, Nucleated RBC % 0.0, Neutrophils # (Manual) Not Reportable, Lymphocytes # (Manual) Not Reportable, Monocytes # (Manual) Not Reportable, Eosinophils # (Manual) Not Reportable, Basophils # (Manual) Not Reportable, Differential Comment MANUAL=AUTO DIFF, Manual Slide Review Indicated, Platelet Estimate NORMAL (130-450,000), Platelet Morphology NORMAL APPEARANCE, RBC Morph Micro Appear NORMAL APPEARANCE - Diagnostic Imaging Results Diagnostic Imaging Results: positive: See rad report, Read independently. negative: Other (I reviewed the x-rays of the left foot including the radiologist report. The radiologist has failed to mention gout in his differential but certainly mentions the possibility of osteomyelitis to the great toe metatarsal. He has multiple cystic lesions in the forefoot including the first metatarsal) - Diagnosis Diagnosis: Acute tophaceous gouty arthritis left great toe metatarsophalangeal joint - Plan Plan: Even though his Gram stain is positive for gram-positive cocci, the reliability of this culture is unreliable. Whether a deep culture was really obtained or not is hard to know since was obtained in the emergency room by another provider not myself. However, I did obtain a sample of the discharge from the great toe metatarsophalangeal joint, went to the laboratory and reviewed the specimen with the lab technicians and there were definite needle like crystals present consistent with uric acid crystals. All of the radiographic changes are consistent with history of gout arthritis. I recommend discontinuing the intravenous antibiotics, obtaining uric acid level, treating him for acute gouty arthritis.I have discussed the case with both of our hospitalist here this evening Dr. Anaya and Clarence. I have also spoken to the patient's over the phone and discussed my findings with her. She is not surprised by the finding as this was the case in the pastl
[2020-10-26] MEDS ORDERED: VANCOMYCIN INJ 1 GM, VANCOMYCIN INJ 500 MG in SODIUM CHLORIDE 0.9% 500 ML IV SCH (18:00)
[2020-10-26] MEDS: COLCHICINE 0.6 MG TABLET PO SCH (18:40)
[2020-10-26] MEDS: carvediloL 12.5 MG TABLET PO SCH (20:42)
[2020-10-26] MEDS ORDERED: carvediloL 12.5 MG TABLET PO SCH (21:00)
[2020-10-27] MEDS: SODIUM CHLORIDE FLUSH 0.9% 10 ML SYRINGE IVP SCH ×2 (00:13→08:18)
[2020-10-27] MEDS: IPRATROPIUM 0.2 MG/ML NEB INH SCH ×2 (00:17→07:55)
[2020-10-27 05:28] LABS: BASOPHILS % (AUTO) 0.1 %; HGB - HEMOGLOBIN 11.2 g/dL (14.0-18.0); LYMPHOCYTES # (AUTO) 0.9 10^3/uL (1.5-3.5); LYMPHOCYTES % (AUTO) 9.5 %; MEAN CORPUSCULAR HEMOGLOBIN 31.7 pg (27.0-31.0); MEAN CORPUSCULAR HGB CONC 32.8 g/dL (32.0-36.0); MEAN CORPUSCULAR VOLUME 96.6 fL (80.0-94.0); MEAN PLATELET VOLUME 10.3 fL (7.4-11.4); MONOCYTES # (AUTO) 0.9 10^3/uL (0.0-1.0); MONOCYTES % (AUTO) 10.5 %; NEUTROPHILS # (AUTO) 7.1 10^3/uL (1.5-6.6); NEUTROPHILS % (AUTO) 79.3 %; PLT - PLATELET COUNT 150 10^3/uL (130-450); RED BLOOD COUNT 3.53 10^6/uL (4.70-6.10); RED CELL DISTRIBUTION WIDTH 11.9 % (12.0-15.0); WHITE BLOOD COUNT 8.9 x10^3/uL (4.8-10.8)
[2020-10-27 05:43] LABS: CRP - C-REACTIVE PROTEIN 6.3 mg/dL (0-1.0)
[2020-10-27] MEDS: SACCHAROMYCES BOULARDII 250 MG CAPSULE PO SCH (08:17)
[2020-10-27] MEDS: ENOXAPARIN 40 MG/0.4 ML SYRINGE SUBQ SCH (08:18)
[2020-10-27] MEDS: COLCHICINE 0.6 MG TABLET PO SCH (08:18)
[2020-10-27] MEDS: carvediloL 12.5 MG TABLET PO SCH (08:18)
[2020-10-27] MEDS: CITALOPRAM HYDROBROMIDE 20 MG TABLET PO SCH (08:18)
[2020-10-27] MEDS: ASPIRIN EC 81 MG TABLET PO SCH (08:18)
[2020-10-27] MEDS: polyethylene glycoL 3350 17 GM PACKET PO SCH (08:19)
[2020-10-27] MEDS ORDERED: TAMSULOSIN 0.4 MG CAPSULE PO SCH (09:00)
--- NOTE | 2020-10-27 10:19 | PROVIDER PROGRESS NOTE ---
Subjective - General Admit Date: 10/25/20 Procedure Date: 09/07/18 Post Op Days: 781 - Review of Systems All Other Systems: positive: Reviewed and negative - Other Other Information/Narrative: This is a 85-year-old gentleman with a painful left great toe associated with swelling, redness and drainage. His pain is well controlled.. At rest, he has minimal pain. Most of his pain is with trying to move the great toe or with weightbearing on the forefoot of the left foot. His pain is slightly better today than yesterday. Examination: He is in good spirits, fully alert, no acute distress. The left great toe shows a hallux valgus deformity that has been present for a number of years. He has a small draining sinus. There is less drainage today than yesterday. The drainage is a white toothpaste type at discharge. Yesterday a sample of this discharge was positive for uric acid crystals. He does have painful movement of the left great toe. The erythema has almost totally resolved, no sign of cellulitis or abscess. There is no necrosis of skin. His circulation is intact to left foot. Sensation is intact to left foot. His laboratory results were reviewed: Uric acid levels are within normal limits. Blood cultures are negative. He does have a potentially positive gram-positive culture that was obtained in the emergency room prior to my evaluation of the wound. X-rays have been reviewed of the left foot: Severe arthrosis to the metatarsal phalangeal joint left great toe with periarticular erosions, also changes to the lesser metatarsophalangeal joints. 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 He is placed on anti-inflammatory medication in the form of a steroid and colchicine by Dr. Lima. He can bear weight on heel and side of his left foot, keep a sterile dressing on the great toe. Although secondary infection is a possibility with acute gouty arthritis, in my opinion there is no sign of infection. However, as discussed with her hospitalist, I would like to follow him up next week in the clinic to reevaluate him. Objective - Patient Data Vital Signs: Vital Signs x48h Temp Pulse Pulse Resp BP Pulse Ox 10/27/20 08:00 36.4 C L 71 19 114/61 97 10/27/20 07:53 68 20 Weight: Weight 10/25/20 10/26/20 10/27/20 23:59 23:59 23:59 Weight (kg) 93.5 kg Intake & Output: Intake and Output Totals x24h 10/25/20 10/26/20 10/27/20 23:59 23:59 23:59 Intake Total 700 4454.500 1220 Output Total 064 004 0377 Balance 525 3579.500 -405 - Lab Results Lab Results: 10/27/20 05:06 10/27/20 05:06 Other Lab Results: Lab Results x24hrs 10/27/20 10/27/20 10/26/20 Range/Units 05:06 05:06 17:13 WBC 8.9 (4.8-10.8) x10^3/uL RBC 3.53 L (4.70-6.10) 10^6/uL Hgb 11.2 L (14.0-18.0) g/dL Hct 34.1 L (42.0-52.0) % MCV 96.6 H (80.0-94.0) fL MCH 31.7 H (27.0-31.0) pg MCHC 32.8 (32.0-36.0) g/dL RDW 11.9 L (12.0-15.0) % Plt Count 150 (130-450) 10^3/uL MPV 10.3 (7.4-11.4) fL Neut # (Auto) 7.1 H (1.5-6.6) 10^3/uL Lymph # (Auto) 0.9 L (1.5-3.5) 10^3/uL [place] # (Auto) 0.9 (0.0-1.0) 10^3/uL Eos # (Auto) 0.0 (0.0-0.7) 10^3/uL Baso # (Auto) 0.0 (0.0-0.1) 10^3/uL Absolute Nucleated RBC 0.00 x10^3/uL Nucleated RBC % 0.0 /100WBC Sodium 136 (135-145) mmol/L Potassium 4.6 (3.5-5.0) mmol/L Chloride 105 (101-111) mmol/L Carbon Dioxide 23 (21-32) mmol/L Anion Gap 8.0 (6-13) BUN 26 H (6-20) mg/dL Creatinine 1.0 (0.6-1.2) mg/dL Estimated GFR (MDRD) 71 L (>89) Glucose 125 H (70-100) mg/dL Uric Acid 6.9 (2.6-7.2) mg/dL Calcium 9.0 (8.5-10.3) mg/dL C-Reactive Protein 6.3 H (0-1.0) mg/dL Fluid Crystals (N) 10/26/20 Range/Units 17:10 WBC (4.8-10.8) x10^3/uL RBC (4.70-6.10) 10^6/uL Hgb (14.0-18.0) g/dL Hct (42.0-52.0) % MCV (80.0-94.0) fL MCH (27.0-31.0) pg MCHC (32.0-36.0) g/dL RDW (12.0-15.0) % Plt Count (130-450) 10^3/uL MPV (7.4-11.4) fL Neut # (Auto) (1.5-6.6) 10^3/uL Lymph # (Auto) (1.5-3.5) 10^3/uL [place] # (Auto) (0.0-1.0) 10^3/uL Eos # (Auto) (0.0-0.7) 10^3/uL Baso # (Auto) (0.0-0.1) 10^3/uL Absolute Nucleated RBC x10^3/uL Nucleated RBC % /100WBC Sodium (135-145) mmol/L Potassium (3.5-5.0) mmol/L Chloride (101-111) mmol/L Carbon Dioxide (21-32) mmol/L Anion Gap (6-13) BUN (6-20) mg/dL Creatinine (0.6-1.2) mg/dL Estimated GFR (MDRD) (>89) Glucose (70-100) mg/dL Uric Acid (2.6-7.2) mg/dL Calcium (8.5-10.3) mg/dL C-Reactive Protein (0-1.0) mg/dL Fluid Crystals MONOSODIUM URATE (N) - Current Medications Current Medications: Current Medications Generic Name Dose Route Start Last Admin Trade Name Freq PRN Reason Stop Dose Admin Acetaminophen 650 mg 10/25/20 19:16 10/26/20 16:11 Acetaminophen 325 Mg Tablet PO 650 mg Q4HR PRN Administration Pain 1 to 4 Aspirin 81 mg 10/26/20 09:00 10/27/20 08:18 Aspirin Ec 81 Mg Tablet PO 81 mg DAILY TONY Administration Carvedilol 12.5 mg 10/26/20 21:00 10/27/20 08:18 Carvedilol 12.5 Mg Tablet PO 12.5 mg BID TONY Administration Citalopram Hydrobromide 40 mg 10/26/20 14:15 10/27/20 08:18 Citalopram Hydrobromide 20 Mg Tablet PO 40 mg DAILY TONY Administration Colchicine 0.6 mg 10/26/20 17:50 10/27/20 08:18 Colchicine 0.6 Mg Tablet PO 0.6 mg DAILY TONY Administration Enoxaparin Sodium 40 mg 10/26/20 09:00 10/27/20 08:18 Enoxaparin 40 Mg/0.4 Ml Syringe SUBQ 40 mg DAILY TONY Administration Ipratropium [place] 0.5 mg 10/26/20 11:00 10/27/20 07:55 Ipratropium 0.2 Mg/Ml Neb INH 0.5 mg RTQ4H TONY Administration Levalbuterol HCl 1.25 mg 10/26/20 08:10 10/26/20 10:49 Levalbuterol 1.25 Mg/3 Ml Neb INH 1.25 mg RTQ4H PRN Administration Shortness of Air/Wheezing Oxycodone HCl 5 mg 10/25/20 19:16 10/26/20 18:40 Oxycodone 5 Mg Tablet PO 5 mg Q4HR PRN Administration Pain 5 to 7 Polyethylene Glycol 17 gm 10/26/20 09:00 10/27/20 08:19 Polyethylene Glycol 3350 17 Gm Packet PO 17 gm DAILY TONY Administration Saccharomyces Boulardii 250 mg 10/26/20 13:43 10/27/20 08:17 Saccharomyces Boulardii 250 Mg Capsule PO 250 mg BIDWM TONY Administration Sodium Chloride 10 ml 10/26/20 01:00 10/27/20 08:18 Sodium Chloride Flush 0.9% 10 Ml Syringe IVP Not Given 0100,0900,1700 [facility] Tamsulosin HCl 0.4 mg 10/27/20 09:00 10/27/20 08:18 Tamsulosin 0.4 Mg Capsule PO 0.4 mg DAILY TONY Administration
--- NOTE | 2020-10-27 10:34 | Discharge Plan ---
Discharge Plan Problem Reviewed?: Yes Disposition: Home, Self Care Condition: Fair Prescriptions: oxyCODONE [Roxicodone] 5 mg PO Q4HR PRN #30 tablet PRN Reason: Pain 5 to 7 Colchicine [Colcrys] 0.6 mg PO DAILY #30 tablet predniSONE [Prednisone 21-tab dose pack] 5 mg PO UD #1 each Activity Restrictions: Activity as Tolerated Shower Restrictions: Yes (after shower make sure toe is dry and clean) Driving Restrictions: No (no driving while toe hurts) Instruction Topics: Gout Attack Tx, Gout Eat Prevent, Uric Acid Synovial Fluid Health Concerns: You have a history of gout, and you came to the emergency room after being sent here by the walk-in clinic. Your toe was painful and draining and they thought it was infected and sent you to our emergency room. The x-ray showed erosion of the joint that was possibly infection. We started you on antibiotics and consulted with orthopedics. Dr. Milton, orthopedics, saw you, and analyze the fluid from your toe under a microscope. The fluid shows uric acid crystals which are the disease that causes severe gout. You do not have a toe infection. Plan of Treatment: 1. Start colchicine. It is a tablet that will stop crystals from forming in your joint. Take it once a day. Do that for the next 2 to 4 weeks. 2. Please see your primary care provider CINTHIA Mchugh. Dr. Caputo may adjust your medications as needed. 3. There is a medicine we can use to help with pain and inflammation from gout, and it is called indomethacin. However, you have chronic kidney disease and we worry about giving you indomethacin. So we have given you a another anti- inflammatory called prednisone. You will take 6 tablets the first day, then 5, then 4, then 3, then 2, then 1. 4. In addition to the prednisone for inflammation, we have given you an opiate called oxycodone to help with pain. You do not have to take it on a regular basis. I would suggest you take half an oxycodone tablet and 1 Tylenol tablet of 325 mg to help you with pain. You can do this up to 3 or 4 times a day. 5. Sometimes people get put on allopurinol, another gout medicine, to help prevent future gout attacks. Discussed this with Dr. Caputo to see if you are a candidate for allopurinol. We are not starting it at this time. 6. You can take a shower, you can soak your toe. However, make sure that your toe is kept clean and dry. You can cover it with a simple white bandage and tape around it temporarily. Because the foot hurts so much, we do not recommend that you drive at this time. When you get home, elevate your foot when you are sitting down. Because when your foot is in the downward position it causes a throbbing pain in the toe. Care Goals: To not have any gout attacks in the future Assessment: Patient is very deaf. He has repeated my instructions and appears to understand what I am saying and will try and follow them. I will rediscussed these instructions when his comes to pick him up. No Smoking: If you smoke, Please STOP! Call for help. Follow-up with: Kelly Rich ARNP [Primary Care Provider] -
[2020-10-27 11:42] VITALS: BP 132/86
--- NOTE | 2020-10-27 11:50 | DISCHARGE SUMMARY ---
"Discharge Summary Admit Date: 10/25/20 Discharge Date: 10/27/20 Discharging Provider: Cammie Lima MD Code Status: Attempt Resuscitation Condition at Discharge: Fair Discharge Disposition: 01 Home, Self Care - DIAGNOSES Discharge Diagnoses with Status of Each Condition: 1. Acute gouty pain 2. Tophaceous gout 3. Chronic kidney disease stage III 4. COPD without exacerbation 5. History of paroxysmal supraventricular tachycardia 6. Benign prostatic hyperplasia 7. Dementia - HPI History of Present Illness: This is a 85-year-old male with a past medical history significant for dementia, BPH, SVT, COPD who presents today from home due to concerns of osteomyelitis of the left foot. He was seen on an outpatient basis by Dr. Hummel for an ongoing infection of the left foot. There was concern for abscess today which was drained and he was sent for x-ray of the left foot. This was concerning for osteomyelitis of the head of the left first metatarsal and so he was referred to the emergency department for further evaluation. Most of the history is obtained from his as the patient is a poor historian. She states that he has been struggling with a bunion of the left foot for the past several months. She states for the past month he has been complaining of more pain there and yesterday his pain became more progressive. She noticed that his left toe was also swollen. She did not notice any erythema. She was concerned there may be a fluid collection of pus at the site of the bunion and so she brought him to urgent care today. This is where it was drained and where he went for further imaging. She states he was prescribed antibiotics about a month ago for an infection where he had basal cell cancer of the arm. He completed a course of antibiotics. It appears he was prescribed Bactrim at that time for 1 week. She reports no other use of antibiotics. She states he has not been complaining of fevers or chills. He normally walks with a cane at baseline. He did use a walker today after the debridement at urgent care. There is no history of diabetes. The patient himself today states that he feels well overall. He states the pain is controlled in his left foot at this time. Reports some nu mbness at the bottom of his left foot. He denies any loss of sensation. He reports no fevers, chills, chest pain, dyspnea. In the emergency department he was found to be afebrile with temperature of 36.9 C. His heart is in the 60s. Blood pressure 130/69. He was not tachypneic and saturating 99% on room air. Labs were significant for white count of 12.7. Lactic acid was normal. CRP was elevated at 2.4. Given the concern for osteomyelitis, medicine was consulted for admission. I did discuss goals of care with the patient and his over the phone. They both confirm that he is a DNR. His POLST form also states that he is a DNR. - Past Medical History Cardiovascular: reports: Hypertension, Arrhythmia Respiratory: reports: COPD Neuro: reports: Dementia, Peripheral neuropathy Endocrine/Autoimmune: reports: None GI: reports: None, GERD, C.difficile : reports: Renal insuffiency HEENT: reports: Chronic hearing loss Psych: reports: Anxiety Musculoskeletal: reports: Gout, Chronic back pain Derm: reports: None MRSA Hx?: No - Past Surgical History Ortho: reports: Other Derm: reports: Skin cancer surgery - CONSULTS | PROCEDURES Consultations: Orthopedics, Dr. Anant Milton Procedures: 1. Debridement of toe 2. Crystal analysis is positive for uric acid crystals 3. Wound culture positive for staph aureus 4. Blood culture 5. Chest x-ray with no acute cardiopulmonary disease 7. Echocardiogram with moderate global impairment of left ventricle with ejection fraction 40 to 45%. Impaired relaxation consistent with grade 1 diastolic dysfunction. Severe right atrial enlargement. This is a preliminary report. Please verify final 8. Plain film of toe done at outside clinic with osteomyelitis of the foot that in retrospect is bony erosion from gout not infection - HOSPITAL COURSE Hospital Course: The patient was admitted as possible osteomyelitis and started on antibiotics. He was then seen by orthopedic surgery who determined that this may be gout. He did an arthrocentesis of the involved joint, and personally walked the specimen down to the lab. He and the medical laboratory assistant reviewed the specimen and he did have birefringent crystals. As such the patient is not felt to have osteomye litis. However there are cases where you can get secondary osteomyelitis from breakdown of tophaceous gout and the patient was kept overnight to determine that. In the end the patient was felt to have gout with pain. He was started on colchicine, steroids. He was not started on Toradol because of renal function. We have asked him to see his primary care provider in follow-up for adjustment of his colchicine or being started on allopurinol. He is uric acid level was normal. He was sent home on oxycodone limited dosing. At discharge the patient was a pleasant, alert but confused elderly gentleman. Temperature was 36.3. Pulse of 74. Blood pressure 132/86. Respirations 18 and 99% on room air. Is 5 feet 9 inches tall and 93.5 kg. He is a 2 person assist with getting up to walk to the bathroom using a walker. But he is able to ambulate. No increased respiratory effort. Neck is supple. Diminished breath sounds at the bases but clear. No crackles rhonchi wheezing or increased respiratory effort. Abdomen is benign. Mild pedal edema of both feet present. He has tremors, generalized weakness. Very forgetful gentleman. But he has baseline dementia. Greater than 30 minutes was spent coordinating discharge. - ALLERGIES Allergies/Adverse Reactions: Allergies Allergy/AdvReac Type Severity Reaction Status Date / Time trichloromonofluoromethane Allergy Unknown Rash Verified 10/25/20 18:13 [From Castblast] - MEDICATIONS Home Medications: Ambulatory Orders Medication Instructions Recorded Confirmed Acetaminophen 1,000 mg PO TID PRN 12/24/15 10/26/20 Tamsulosin [Flomax] 0.4 mg PO DAILY 12/24/15 10/26/20 Aspirin [Adult Aspirin] 81 mg PO DAILY 09/03/18 10/26/20 Calcium Carbonate/Vitamin D3 1 each PO BID 09/03/18 10/26/20 [Calcium 500 mg-Vit D3 600 Unit] Citalopram Hydrobromide 40 mg PO DAILY 09/07/18 10/26/20 [Citalopram HBr] Ipratropium [Atrovent] 1 puffs INH Q6H PRN #1 inhaler 07/12/19 10/26/20 Levalbuterol [Xopenex] 1 puffs INH Q4-6H PRN #1 inhaler 07/12/19 10/26/20 carvediloL [Coreg] 12.5 mg PO BID #20 tablet 07/12/19 10/26/20 Diltiazem HCl [Diltiazem 12Hr ER] 60 mg PO BID 10/26/20 10/26/20 Colchicine [Colcrys] 0.6 mg PO DAILY #30 tablet 10/27/20 oxyCODONE [Roxicodone] 5 mg PO Q4HR PRN #30 tablet 10/27/20 predniSONE [Prednisone 21-tab dose 5 mg PO UD #1 each 10/27/20 pack] - LABS Result Diagrams: 10/27/20 05:06 10/27/20 05:06"
== END 2020-10-27 12:27 | disposition home or self-care (01) | DRG 554 ==
LOC: ED 17:05 → MS2 19:16
PROVIDERS: ADMIT Specialist; ATTEND Specialist
DX: M1A.9XX1 Chronic gout, unspecified, with tophus (tophi) (principal); I47.1 Supraventricular tachycardia; I13.0 Hypertensive heart and chronic kidney disease with heart failure and stage 1 through stage 4 chronic kidney disease, or unspecified chronic kidney disease; I50.20 Unspecified systolic (congestive) heart failure; N18.30 Chronic kidney disease, stage 3 unspecified; M86.8X7 Other osteomyelitis, ankle and foot; N40.0 Benign prostatic hyperplasia without lower urinary tract symptoms; L03.032 Cellulitis of left toe; J44.9 Chronic obstructive pulmonary disease, unspecified; F03.90 Unspecified dementia, unspecified severity, without behavioral disturbance, psychotic disturbance, mood disturbance, and anxiety; Z66 Do not resuscitate; G62.9 Polyneuropathy, unspecified; H91.90 Unspecified hearing loss, unspecified ear; F41.9 Anxiety disorder, unspecified; G89.29 Other chronic pain; M54.9 Dorsalgia, unspecified; Z79.82 Long term (current) use of aspirin; Z79.899 Other long term (current) drug therapy; Z87.891 Personal history of nicotine dependence
CPT/HCPCS: 36415; 71045; 80048; 80053; 83605; 84550; 85025; 85651; 86140; 87040; 87070; 87077; 87181; 87205; 87631; 89060; 93005; 93306; 94640; 96365; 99283; 99285; A9270; J1650; J3370; J7120; J7512; J8499; 0202U

== ENCOUNTER 2020-11-13 15:17 | Outpatient (CLI) | payer MEDICARE | END 2020-11-13 23:59 | disposition home or self-care (01) | LOC: LAB.R 15:17 | PROVIDERS: ATTEND Physician Assistant | DX: L02.612 Cutaneous abscess of left foot (principal) | CPT/HCPCS: 87070; 87205 ==

== ENCOUNTER 2020-11-15 14:48 | Outpatient (CLI) | payer MEDICARE ==
--- NOTE | 2020-11-15 15:54 | XRAY Report ---
PROCEDURE: Foot 3 View LT INDICATIONS: GOUTY ARTHRITIS, CHRONIC TECHNIQUE: 3 views of the foot were acquired. 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 Punched out lesion in dorsal and lateral aspect of first metatarsal head is again s een. Additional area of radiolucency involving medial and dorsal aspect of first interphalangeal join t is also noted. Moderate hallux valgus is again seen. Osteoarthritic changes also noted throughout f orefoot joints. No suspicious bony lesions. Soft tissues: No tibiotalar joint effusion. Achilles tendon appears normal. IMPRESSION: Finding is consistent with gouty erosion involving medial aspect of first MTP joint and first interph alangeal joint and possibly medial aspect of second MTP joint. No acute fracture or dislocation. Oste oarthritic changes throughout forefoot joints. Reviewed by: Chema Daniels MD on 11/15/2020 3:52 PM PST Approved by: Chema Daniels MD on 11/15/2020 3:52 PM PST Station ID: [id number]
== END 2020-11-15 23:59 | disposition home or self-care (01) ==
LOC: DI.N 14:48
PROVIDERS: ATTEND Orthopaedic Surgery
DX: M1A.0720 Idiopathic chronic gout, left ankle and foot, without tophus (tophi) (principal); M19.072 Primary osteoarthritis, left ankle and foot

== ENCOUNTER 2021-01-26 23:53 | Emergency (ER) | payer MEDICARE ==
[2021-01-27 00:03] VITALS: BP 128/53
--- NOTE | 2021-01-27 01:01 | ED Physician Documentation ---
History of Present Illness - Stated complaint Stated Complaint: R ELBOW PX/RASH - Chief complaint Chief Complaint: Wound - History obtained from History obtained from: Patient - History of Present Illness Timing: How many days ago (1-2) Improved by: nothing Worsened by: palpation - Additonal information Additional information: patient says he slipped and fell approximately 1.5 weeks ago, injuring the right elbow. He says there was no significant swelling nor pain until 1-2 days ago when the right elbow became swollen, painful, and red; these symptoms have progressed since onset. denies fever. Review of Systems Constitutional: denies: Fever Skin: reports: Rash Musculoskeletal: reports: Joint pain, Joint swelling PD PAST MEDICAL HISTORY - Past Medical History Cardiovascular: Hypertension, Arrhythmia, Other Respiratory: COPD Neuro: Dementia, Peripheral neuropathy Endocrine/Autoimmune: None GI: None, GERD, C.difficile, Other : Renal insuffiency HEENT: Chronic hearing loss Psych: Anxiety Musculoskeletal: Gout, Chronic back pain Derm: None - Past Surgical History Past Surgical History: Yes Ortho: Other Derm: Skin cancer surgery - Present Medications Home Medications: Ambulatory Orders Medication Instructions Recorded Confirmed Acetaminophen 1,000 mg PO TID PRN 12/24/15 10/26/20 Tamsulosin [Flomax] 0.4 mg PO DAILY 12/24/15 10/26/20 Aspirin [Adult Aspirin] 81 mg PO DAILY 09/03/18 10/26/20 Calcium Carbonate/Vitamin D3 1 each PO BID 09/03/18 10/26/20 [Calcium 500 mg-Vit D3 600 Unit] Citalopram Hydrobromide 40 mg PO DAILY 09/07/18 10/26/20 [Citalopram HBr] Ipratropium [Atrovent] 1 puffs INH Q6H PRN #1 inhaler 07/12/19 10/26/20 Levalbuterol [Xopenex] 1 puffs INH Q4-6H PRN #1 inhaler 07/12/19 10/26/20 carvediloL [Coreg] 12.5 mg PO BID #20 tablet 07/12/19 10/26/20 Diltiazem HCl [Diltiazem 12Hr ER] 60 mg PO BID 10/26/20 10/26/20 Colchicine [Colcrys] 0.6 mg PO DAILY #30 tablet 10/27/20 oxyCODONE [Roxicodone] 5 mg PO Q4HR PRN #30 tablet 10/27/20 predniSONE [Prednisone 21-tab dose 5 mg PO UD #1 each 10/27/20 pack] Doxycycline Hyclate 100 mg PO BID #20 01/27/21 - Allergies Allergies/Adverse Reactions: Allergies Allergy/AdvReac Type Severity Reaction Status Date / Time trichloromonofluoromethane Allergy Unknown Rash Verified 01/26/21 23:58 [From Castblast] - Social History Does the pt smoke?: No Smoking Status: Never smoker Does the pt drink ETOH?: No Does the pt have substance abuse?: No - Immunizations Immunizations are current?: No Immunizations: TDAP >10years/unknown - POLST Patient has POLST: Yes POLST Status: DNR PD ED PE NORMAL - Vitals Vital signs reviewed: Yes - General General: Alert and oriented X 3, No acute distress, Well developed/nourished, Other (very hard of hearing, but he gives rapid and appropriate answers ) PD ED PE EXPANDED - Extremities POLINA UE/Hands Visual: 1 - rash (confluent erythema limited to extensor surface of right elbow with s welling and tenderness. no fluctuance, no discharge. Full ROM without worsening of pain), swelling, tenderness Results - Vitals Vitals: Vital Signs - 24 hr 01/26/21 23:58 Temperature 36.6 C Heart Rate 64 Respiratory 20 Rate Blood Pressure 128/53 L O2 Saturation 97 Oxygen O2 Source Room air PD MEDICAL DECISION MAKING - ED course Complexity details: considered differential, d/w patient ED course: right elbow cellulitis without limitation of ROM, crepitus, or discharge. the swelling, erythema, and tenderness are limited to the extensor surface but not localized to the olecranon bursa. Departure - Departure Disposition: 01 Home, Self Care Clinical Impression: Cellulitis Condition: Good Instructions: ED Infec Skin Cellulitis Prescriptions: Doxycycline Hyclate 100 mg PO BID #20 Comments: Your elbow is infected and and antibiotic has been prescribed to treat this. Contact your primary care provider on Thursday to arrange for a follow up appointment; if possible, your doctor should recheck the infection early this coming week to ensure the antibiotic is working. Return to the emergency department if you develop fever or worsening of the symptoms. You can take tylenol for the pain as per label instructions Discharge Date/Time: 01/27/21 01:14
[2021-01-27] MEDS ORDERED: DOXYCYCLINE 100 MG TABLET PO STA (01:02)
== END 2021-01-27 01:14 | disposition home or self-care (01) ==
LOC: ED 23:53
DX: L03.113 Cellulitis of right upper limb (principal); I10 Essential (primary) hypertension
CPT/HCPCS: 99282; 99283; A9270

== ENCOUNTER 2021-05-06 09:06 | Outpatient (CLI) | payer MEDICARE ==
[2021-05-06 14:45] LABS: BASOPHILS # (AUTO) 0.1 10^3/uL (0.0-0.1); BASOPHILS % (AUTO) 0.9 %; EOSINOPHILS # (AUTO) 0.3 10^3/uL (0.0-0.7); EOSINOPHILS % (AUTO) 5.3 %; HCT - HEMATOCRIT 36.6 % (42.0-52.0); HGB - HEMOGLOBIN 11.8 g/dL (14.0-18.0); LYMPHOCYTES # (AUTO) 1.4 10^3/uL (1.5-3.5); LYMPHOCYTES % (AUTO) 24.6 %; MEAN CORPUSCULAR HEMOGLOBIN 31.6 pg (27.0-31.0); MEAN CORPUSCULAR HGB CONC 32.2 g/dL (32.0-36.0); MEAN CORPUSCULAR VOLUME 98.1 fL (80.0-94.0); MEAN PLATELET VOLUME 10.7 fL (7.4-11.4); MONOCYTES # (AUTO) 0.6 10^3/uL (0.0-1.0); MONOCYTES % (AUTO) 11.6 %; NEUTROPHILS # (AUTO) 3.2 10^3/uL (1.5-6.6); NEUTROPHILS % (AUTO) 57.4 %; PLT - PLATELET COUNT 164 10^3/uL (130-450); RED BLOOD COUNT 3.73 10^6/uL (4.70-6.10); RED CELL DISTRIBUTION WIDTH 13.4 % (12.0-15.0); WHITE BLOOD COUNT 5.5 x10^3/uL (4.8-10.8)
[2021-05-06 15:38] LABS: ALBUMIN 3.8 g/dL (3.2-5.5); ALBUMIN/GLOBULIN RATIO 1.7 (1.0-2.2); ALKALINE PHOSPHATASE 67 IU/L (42-121); ALT ALANINE AMINOTRANSFERASE 10 IU/L (10-60); AST ASPARTATE AMINOTRANSFERASE 14 IU/L (10-42); BILIRUBIN,TOTAL 0.9 mg/dL (0.2-1.0); BUN - BLOOD UREA NITROGEN 23 mg/dL (6-20); CALCIUM 8.8 mg/dL (8.5-10.3); CARBON DIOXIDE - CO2 27 mmol/L (21-32); CHLORIDE 100 mmol/L (101-111); CHOL/HDL RATIO 2.4 (<5.0); CHOLESTEROL 137 mg/dL; CREATININE 1.2 mg/dL (0.6-1.2); GFR - MDRD 57 (>89); GLUCOSE 90 mg/dL (70-100); HDL CHOLESTEROL 56 mg/dL; LDL CHOLESTEROL,CALCULATED 70 mg/dL; LDL/HDL RATIO 1.3 (<3.6); POTASSIUM 4.7 mmol/L (3.5-5.0); SODIUM 135 mmol/L (135-145); TOTAL PROTEIN 6.1 g/dL (6.7-8.2); TRIGLYCERIDES 54 mg/dL; VLDL CHOLESTEROL 11 mg/dL
[2021-05-06 15:42] LABS: THYROID STIMULATING HORMONE 3.44 uIU/mL (0.34-5.60)
== END 2021-05-06 09:07 | disposition home or self-care (01) ==
LOC: LAB.S 09:06
PROVIDERS: ATTEND Registered Nurse
DX: I12.9 Hypertensive chronic kidney disease with stage 1 through stage 4 chronic kidney disease, or unspecified chronic kidney disease (principal); N18.30 Chronic kidney disease, stage 3 unspecified; F03.90 Unspecified dementia, unspecified severity, without behavioral disturbance, psychotic disturbance, mood disturbance, and anxiety; M1A.9XX0 Chronic gout, unspecified, without tophus (tophi)
CPT/HCPCS: 36415; 80053; 80061; 83721; 84443; 85025

== ENCOUNTER 2022-05-29 07:04 | Outpatient (CLI) | payer MEDICARE ==
[2022-05-29 14:45] LABS: BASOPHILS # (AUTO) 0.1 10^3/uL (0.0-0.1); BASOPHILS % (AUTO) 1.1 %; EOSINOPHILS # (AUTO) 0.5 10^3/uL (0.0-0.7); EOSINOPHILS % (AUTO) 6.6 %; HGB - HEMOGLOBIN 11.9 g/dL (14.0-18.0); LYMPHOCYTES # (AUTO) 1.8 10^3/uL (1.5-3.5); LYMPHOCYTES % (AUTO) 23.8 %; MEAN CORPUSCULAR HEMOGLOBIN 31.6 pg (27.0-31.0); MEAN CORPUSCULAR HGB CONC 32.2 g/dL (32.0-36.0); MEAN CORPUSCULAR VOLUME 98.4 fL (80.0-94.0); MEAN PLATELET VOLUME 10.5 fL (7.4-11.4); MONOCYTES # (AUTO) 0.9 10^3/uL (0.0-1.0); MONOCYTES % (AUTO) 11.8 %; NEUTROPHILS # (AUTO) 4.2 10^3/uL (1.5-6.6); NEUTROPHILS % (AUTO) 56.4 %; PLT - PLATELET COUNT 169 10^3/uL (130-450); RED BLOOD COUNT 3.76 10^6/uL (4.70-6.10); RED CELL DISTRIBUTION WIDTH 12.5 % (12.0-15.0); WHITE BLOOD COUNT 7.5 x10^3/uL (4.8-10.8)
[2022-05-29 15:41] LABS: THYROID STIMULATING HORMONE 4.8 uIU/mL (0.34-5.60)
[2022-05-29 16:01] LABS: ALBUMIN 3.6 g/dL (3.2-5.5); ALBUMIN/GLOBULIN RATIO 1.4 (1.0-2.2); ALKALINE PHOSPHATASE 65 IU/L (42-121); ALT ALANINE AMINOTRANSFERASE < 10 IU/L (10-60); AST ASPARTATE AMINOTRANSFERASE 16 IU/L (10-42); BILIRUBIN,TOTAL 0.8 mg/dL (0.2-1.0); BUN - BLOOD UREA NITROGEN 26 mg/dL (6-20); CALCIUM 9.3 mg/dL (8.5-10.3); CARBON DIOXIDE - CO2 29 mmol/L (21-32); CHLORIDE 105 mmol/L (101-111); CHOL/HDL RATIO 2.7 (<5.0); CHOLESTEROL 152 mg/dL; CREATININE 1.3 mg/dL (0.6-1.2); GFR - MDRD 52 (>89); GLUCOSE 91 mg/dL (70-100); HDL CHOLESTEROL 56 mg/dL; LDL CHOLESTEROL,CALCULATED 83 mg/dL; LDL/HDL RATIO 1.5 (<3.6); POTASSIUM 4.7 mmol/L (3.5-5.0); SODIUM 140 mmol/L (135-145); TOTAL PROTEIN 6.1 g/dL (6.7-8.2); TRIGLYCERIDES 65 mg/dL; VLDL CHOLESTEROL 13 mg/dL
== END 2022-05-29 07:05 | disposition home or self-care (01) ==
LOC: LAB.S 07:04
PROVIDERS: ATTEND Registered Nurse
DX: Z13.228 Encounter for screening for other metabolic disorders (principal); Z13.220 Encounter for screening for lipoid disorders; Z13.29 Encounter for screening for other suspected endocrine disorder; Z13.0 Encounter for screening for diseases of the blood and blood-forming organs and certain disorders involving the immune mechanism
CPT/HCPCS: 36415; 80053; 80061; 83721; 84443; 85025

== ENCOUNTER 2023-02-14 10:30 | Outpatient (CLI) | payer MEDICARE | END 2023-02-14 23:59 | disposition critical access hospital (66) | LOC: EMS 10:30 | DX: R42 Dizziness and giddiness (principal); R53.1 Weakness; I95.1 Orthostatic hypotension | CPT/HCPCS: A0425; A0427 ==

== ENCOUNTER 2023-02-14 11:02 | Emergency (ER) | payer MEDICARE ==
--- NOTE | 2023-02-14 11:31 | ED Physician Documentation ---
History of Present Illness - Stated complaint Stated Complaint: NEAR SYNCOPE - Chief complaint Chief Complaint: Cardiac - History obtained from History obtained from: Patient, EMS - Additonal information Additional information: This is an 88-year-old gentleman with a past medical history of hypertension and prior episodes of orthostatic hypotension and falls who presents after a syncopal event at home. The event was not witnessed but according to , patient got dizzy and sat down on his bottom. He did not pass out or lose consciousness. He called her from the other room and was awake and alert but had sat down on the floor. He denies any prodromal symptoms such as chest pain, shortness of breath, fever or chills. He denies any confusion or alteration in his mental status. states That he has had several such episodes in the past, has been seen here before for this and it is happened a couple times as well when he did not seek care. He is on Flomax but takes this at nighttime, and is on carvedilol and diltiazem the no changes in doses recently. He has been staying well-hydrated, states that he drinks 3 large glasses of water a day. He has not had any new medication, no recent illness, cough or URI symptoms, fever or chills, chest pain or difficulty breathing, abdominal pain nausea vomiting diarrhea or change in urination. Denies any dysuria urgency or frequency. He states he did not hit his head or sustain any other injuries in his fall, denies any hip or back pain, no extremity pain or injuries. He in fact has no complaints at this time and states he feels back to baseline. Review of Systems Unable to obtain: Other (limited by patients severe hard of hearing, does not have his hearing aids.) Constitutional: reports: Reviewed and negative Eyes: reports: Reviewed and negative Ears: reports: Reviewed and negative Nose: reports: Reviewed and negative Throat: reports: Reviewed and negative Cardiac: reports: Reviewed and negative Respiratory: reports: Reviewed and negative GI: reports: Reviewed and negative : reports: Reviewed and negative Skin: reports: Reviewed and negative Musculoskeletal: reports: Reviewed and negative Neurologic: reports: Near syncope. denies: Generalized weakness, Focal weakness, Numbness, Difficulty speaking, Seizure, Confused, Unresponsive, Headache, Head injury, LOC Psychiatric: reports: Reviewed and negative PD PAST MEDICAL HISTORY - Past Medical History Cardiovascular: Hypertension, Arrhythmia, Other Respiratory: COPD Neuro: Dementia, Peripheral neuropathy Endocrine/Autoimmune: None GI: None, GERD, C.difficile, Other : Renal insuffiency HEENT: Chronic hearing loss Psych: Anxiety Musculoskeletal: Gout, Chronic back pain Derm: None - Past Surgical History Past Surgical History: Yes Ortho: Other Derm: Skin cancer surgery - Present Medications Home Medications: Ambulatory Orders Medication Instructions Recorded Confirmed Acetaminophen 1,000 mg PO TID PRN 12/24/15 10/26/20 Tamsulosin [Flomax] 0.4 mg PO DAILY 12/24/15 10/26/20 Aspirin [Adult Aspirin] 81 mg PO DAILY 09/03/18 10/26/20 Calcium Carbonate/Vitamin D3 1 each PO BID 09/03/18 10/26/20 [Calcium 500 mg-Vit D3 600 Unit] Citalopram Hydrobromide 40 mg PO DAILY 09/07/18 10/26/20 [Citalopram HBr] Ipratropium [Atrovent] 1 puffs INH Q6H PRN #1 inhaler 07/12/19 10/26/20 Levalbuterol [Xopenex] 1 puffs INH Q4-6H PRN #1 inhaler 07/12/19 10/26/20 carvediloL [Coreg] 12.5 mg PO BID #20 tablet 07/12/19 10/26/20 Diltiazem HCl [Diltiazem 12Hr ER] 60 mg PO BID 10/26/20 10/26/20 Colchicine [Colcrys] 0.6 mg PO DAILY #30 tablet 10/27/20 oxyCODONE [Roxicodone] 5 mg PO Q4HR PRN #30 tablet 10/27/20 predniSONE [Prednisone 21-tab dose 5 mg PO UD #1 each 10/27/20 pack] Doxycycline Hyclate 100 mg PO BID #20 01/27/21 cephALEXin [Keflex] 500 mg PO Q6H #40 cap 02/14/23 - Allergies Allergies/Adverse Reactions: Allergies Allergy/AdvReac Type Severity Reaction Status Date / Time trichloromonofluoromethane Allergy Unknown Rash Verified 01/26/21 23:58 [From Castblast] - Social History Does the pt smoke?: No Smoking Status: Never smoker Does the pt drink ETOH?: No Does the pt have substance abuse?: No - Immunizations Immunizations are current?: No Immunizations: TDAP >10years/unknown - POLST Patient has POLST: Yes POLST Status: DNR PD ED PE NORMAL - Vitals Vital signs reviewed: Yes - General General: Alert and oriented X 3, No acute distress, Well developed/nourished - HEENT HEENT: Atraumatic, PERRL, EOMI, Ears normal, Moist mucous membranes, Pharynx benign - Neck Neck: Supple, no meningeal sign, No bony TTP, No JVD, C-Spine cleared by NEXUS criteria - Cardiac Cardiac: RRR, No murmur, Strong equal pulses - Respiratory Respiratory: No respiratory distress, Clear bilaterally - Abdomen Abdomen: Normal bowel sounds, Soft, Non tender, Non distended - Back Back: No CVA TTP, No spinal TTP - Derm Derm: Normal color, Warm and dry, No rash - Extremities Extremities: No deformity, No tenderness to palpate, Normal ROM s pain, No edema, No calf tenderness / cord - Neuro Neuro: Alert and oriented X 3, breast splitter 2-12 intact, No motor deficit, No sensory deficit, Normal speech Eye Opening: Spontaneous Motor: Obeys Commands Verbal: Oriented GCS Score: 15 - Psych Psych: Normal mood, Normal affect Results - Vitals Vitals: Vital Signs - 24 hr 02/14/23 02/14/23 02/14/23 11:03 13:38 14:25 Temperature 36.2 C L 36.5 C Heart Rate 62 58 L Heart Rate [ 58 L Sitting] Heart Rate [ 65 Standing] Heart Rate [ 58 L Supine] Respiratory 8 L 18 Rate Blood Pressure 152/73 H 151/71 H Blood Pressure 153/67 H [Sitting] Blood Pressure 112/74 [Standing] Blood Pressure 132/67 H [Supine] O2 Saturation 97 100 02/14/23 14:44 Temperature Heart Rate Heart Rate [ 62 Sitting] Heart Rate [ 69 Standing] Heart Rate [ 58 L Supine] Respiratory Rate Blood Pressure Blood Pressure 158/74 H [Sitting] Blood Pressure 129/67 [Standing] Blood Pressure 141/81 H [Supine] O2 Saturation Oxygen O2 Source Room air - EKG (time done) No standard instances EKG releavant findings:: EKG personally interpreted by author of this note. Relevant findings are: Rate: Rate (enter#) (58) Rhythm: NSR [place]: Normal Intervals: Normal [place], LBBB Computer interpretation: Agree with computer - Labs Labs: Laboratory Tests 02/14/23 02/14/23 02/14/23 11:40 11:40 11:40 WBC 6.0 RBC 3.75 L Hgb 11.5 L Hct 36.1 L MCV 96.3 H MCH 30.7 MCHC 31.9 L RDW 12.7 Plt Count 153 MPV 9.7 Neut # (Auto) 3.8 Lymph # (Auto) 1.2 L [place] # (Auto) 0.7 Eos # (Auto) 0.2 Baso # (Auto) 0.1 Absolute Nucleated RBC 0.00 Nucleated RBC % 0.0 Sodium 139 Potassium 4.8 Chloride 108 Carbon Dioxide 25 Anion Gap 6.0 BUN 24 H Creatinine 1.2 Estimated GFR (MDRD) 57 L Glucose 98 Calcium 8.4 L Total Bilirubin 0.7 AST 15 ALT < 10 L Alkaline Phosphatase 67 Troponin I High Sens 16.8 Total Protein 5.5 L Albumin 3.1 L Globulin 2.4 Albumin/Globulin Ratio 1.3 Lipase 35 Urine Color Urine Clarity Urine pH Ur Specific [place] Urine Protein Urine Glucose (UA) Urine Ketones Urine Occult Blood Urine Nitrite Urine Bilirubin Urine Urobilinogen Ur Leukocyte Esterase Urine RBC Urine WBC Ur Squamous Epith Cells Urine Bacteria Ur Microscopic Review Urine Culture Comments 02/14/23 02/14/23 12:45 12:52 WBC RBC Hgb Hct MCV MCH MCHC RDW Plt Count MPV Neut # (Auto) Lymph # (Auto) [place] # (Auto) Eos # (Auto) Baso # (Auto) Absolute Nucleated RBC Nucleated RBC % Sodium Potassium Chloride Carbon Dioxide Anion Gap BUN Creatinine Estimated GFR (MDRD) Glucose Calcium Total Bilirubin AST ALT Alkaline Phosphatase Troponin I High Sens 16.9 Total Protein Albumin Globulin Albumin/Globulin Ratio Lipase Urine Color YELLOW Urine Clarity CLEAR Urine pH 6.0 Ur Specific [place] 1.025 Urine Protein NEGATIVE Urine Glucose (UA) NEGATIVE Urine Ketones NEGATIVE Urine Occult Blood NEGATIVE Urine Nitrite NEGATIVE Urine Bilirubin NEGATIVE Urine Urobilinogen 0.2 (NORMAL) Ur Leukocyte Esterase MODERATE H Urine RBC None Seen Urine WBC 4-5 Ur Squamous Epith Cells RARE Squamous Urine Bacteria Few Ur Microscopic Review INDICATED Urine Culture Comments INDICATED PD Medical Decision Making - ED course Complexity details: reviewed old records, reviewed results, re-evaluated patient, considered differential, d/w patient, d/w family ED course: 88-year-old male presented after a fall at home with low blood pressure according to EMS. On arrival here, the patient has no concerns, is well- appearing on physical exam with stable vital signs. We obtain EKG which shows a possible left bundle branch block but no other acute findings. His chest x- rays negative, and his labs are reassuring including 2 stable troponins. He has stable chronic anemia, stable renal function. His urinalysis is suggestive of possible infection with moderate leuk esterase and 4-5 WBCs and has been sent for culture. We did obtain orthostatic vital signs which initially were mildly positive the patient was asymptomatic. He received a total of 1 L of IV fluids and I also started him on antibiotics for his urinary tract infection here with a 2 g dose of ceftriaxone. Repeat vital signs improved, his blood pressure somewhat lower standing but again patient is asymptomatic and I think stable for discharge home. I We will discharge the patient home with treatment for his urinary tract infection pending culture and we have started him on Keflex due to interactions of Cipro with his other medication and reluctance to use Bactrim in this age group due to kidney issues. I have also encouraged him to stay well-hydrated at home, ensure that he is taking the Flomax at nighttime as this could be contributing and getting up slowly from a laying to seated position and utilizes walker while he is ambulatory. I recommended follow-up with his PCP in the next week or so for repeat blood pressure evaluation and To see if medication need to be adjusted. Departure - Departure Disposition: 01 Home, Self Care Clinical Impression: Near syncope, Orthostatic hypotension Urinary tract infection Qualifiers: Urinary tract infection type: acute cystitis Hematuria presence: without hematuria Qualified Code(s): N30.00 - Acute cystitis without hematuria Condition: Good Instructions: ED Hypotension Orthostatic, ED Near Syncope Unkn, ED UTI Cystitis Male Prescriptions: cephALEXin [Keflex] 500 mg PO Q6H #40 cap Comments: Jimmie presented after a syncopal episode at home. This may have been orthostatic hypotension or vasovagal event. He also has signs of a possible urinary tract infection which I have prescribed antibiotics for. His work-up today is otherwise reassuring, his labs are stable, his heart labs performed on 2 occasions are stable and his EKG shows no acute findings. We also obtained a chest x-ray which is negative. This Event may be related to his medications. He is on Several medications which can impact his blood pressure including Flomax which is used for his prostate. It is often best if this medication is taken right before bedtime to avoid dizziness. He is also on carvedilol and diltiazem both of which can lower his blood pressure. He is on low doses of these and he has been on the same medication for quite a while so I would simply monitor his symptoms and follow-up with his primary doctor to determine if these doses need to be lowered. Ensure that he is Staying well-hydrated and recommend that he move slowly from a seated to standing position, with the assistance of a walker if needed. If he has new symptoms such as chest pain or difficulty breathing or is having recurrent episodes, please return to the ER.
--- OUTSIDE RECORDS SUMMARY | 2023-02-14 11:43 | EXTERNAL MEDICAL SUMMARY RPT | Continuity of Care Document ---
:1935 Author Organization [facility] Address [address] [place] [address] Phone Care Team Providers Name Role Phone Unavailable Unavailable Unavailable Kelly Vergara Unavailable Unavailable Allergies No information. Encounters No information. Functional Status No information. Immunizations No information. Medications date description facility 2022-12-05 00:00 [email or web address] 2022-12-08 00:00 [email or web address] 2023-01-15 00:00 [email or web address] 2022-12-05 00:00 [email or web address] 2022-12-08 00[facility]00 [email or web address] 2023-01-15 00:00 [email or web address] 2022-12-05 00[facility]00 [facility] 2022-12-08 00[facility]00 [facility] 2023-01-15 00[facility]00 [facility] 2022-12-05 00[facility]00 [facility] 2022-12-08 00[facility]00 [facility] 2023-01-15 00[facility]00 [facility] 2022-12-05 00[facility]00 [facility] 2022-12-08 00:00 [facility] 2023-01-15 00:00 [facility] 2022-12-05 00:00 [facility] 2022-12-08 00:00 [facility] 2023-01-15 00:00 [facility] 2022-12-05 00:00 [facility] 2022-12-08 00:00 [facility] 2023-01-15 00:00 [facility] [place] 2022-12-05 00:00 [facility] 2022-12-08 00:00 [facility] 2023-01-15 00:00 [facility] Problems date description facility 2022-12-05 00:00 Solitary nodule of lung [facility] [place] 2022-12-05 00:00 Syncope and collapse [facility] [place] 2022-12-05 00:00 Solitary pulmonary nodule [facility] [place] Procedures date description facility 2022-12-05 00:00 Visit Code Hold [facility] [place] Results/Labs No information. Social History date description facility 2022-12-05 00:00 Former smoker [facility] [place] Vital Signs date measurement value units 2022-12-05 00:00 BP_diastolic 62 mmHg 2022-12-05 00:00 BP_systolic 116 mmHg 2022-12-05 00:00 heart_rate 55 /min 2022-12-05 00:00 respiration_rate 18 /min 2022-12-05 00:00 temperature_metric 36.33 C 2022-12-05 00:00 temperature_standard 97.4 F
[2023-02-14 11:49] LABS: BASOPHILS # (AUTO) 0.1 10^3/uL (0.0-0.1); BASOPHILS % (AUTO) 0.8 %; EOSINOPHILS # (AUTO) 0.2 10^3/uL (0.0-0.7); EOSINOPHILS % (AUTO) 3.8 %; HCT - HEMATOCRIT 36.1 % (42.0-52.0); HGB - HEMOGLOBIN 11.5 g/dL (14.0-18.0); LYMPHOCYTES # (AUTO) 1.2 10^3/uL (1.5-3.5); MEAN CORPUSCULAR HEMOGLOBIN 30.7 pg (27.0-31.0); MEAN CORPUSCULAR HGB CONC 31.9 g/dL (32.0-36.0); MEAN CORPUSCULAR VOLUME 96.3 fL (80.0-94.0); MEAN PLATELET VOLUME 9.7 fL (7.4-11.4); MONOCYTES # (AUTO) 0.7 10^3/uL (0.0-1.0); NEUTROPHILS # (AUTO) 3.8 10^3/uL (1.5-6.6); NEUTROPHILS % (AUTO) 64.1 %; PLT - PLATELET COUNT 153 10^3/uL (130-450); RED BLOOD COUNT 3.75 10^6/uL (4.70-6.10); RED CELL DISTRIBUTION WIDTH 12.7 % (12.0-15.0)
--- NOTE | 2023-02-14 12:07 | XRAY Report ---
PROCEDURE: Chest 1 View X-Ray INDICATIONS: chest pain TECHNIQUE: One view of the chest was acquired. COMPARISON: None. FINDINGS: Surgical changes and devices: 10/26/2020 Lungs and pleura: No pleural effusions or pneumothorax. Lungs are clear. Mediastinum: The aorta is prominent and tortuous. The cardiac contours are within normal limits. Bones and chest wall: No suspicious bony lesions. Age-appropriate degenerative changes are seen. O verlying soft tissues appear unremarkable. IMPRESSION: Portable chest within normal limits for age. Reviewed by: Eliezer Anderson MD on 02/14/2023 11:06 AM YARIEL Approved by: Eliezer Anderson MD on 02/14/2023 11:06 AM YARIEL Station ID: [id number]
[2023-02-14] MEDS ORDERED: SODIUM CHLORIDE 0.9% 500 ML IV STA ×2 (12:17→13:44)
[2023-02-14 12:22] LABS: ALBUMIN 3.1 g/dL (3.2-5.5); ALBUMIN/GLOBULIN RATIO 1.3 (1.0-2.2); ALKALINE PHOSPHATASE 67 IU/L (42-121); ALT ALANINE AMINOTRANSFERASE < 10 IU/L (10-60); AST ASPARTATE AMINOTRANSFERASE 15 IU/L (10-42); BILIRUBIN,TOTAL 0.7 mg/dL (0.2-1.0); BUN - BLOOD UREA NITROGEN 24 mg/dL (6-20); CALCIUM 8.4 mg/dL (8.5-10.3); CARBON DIOXIDE - CO2 25 mmol/L (21-32); CHLORIDE 108 mmol/L (101-111); CREATININE 1.2 mg/dL (0.6-1.2); GFR - MDRD 57 (>89); GLUCOSE 98 mg/dL (70-100); LIPASE 35 U/L (22-51); POTASSIUM 4.8 mmol/L (3.5-5.0); SODIUM 139 mmol/L (135-145); TOTAL PROTEIN 5.5 g/dL (6.7-8.2)
[2023-02-14 13:01] LABS: BILIRUBIN,URINE NEGATIVE (NEGATIVE); GLUCOSE, URINE (UA) NEGATIVE (NEGATIVE); KETONES,URINE (UA) NEGATIVE (NEGATIVE); LEUKOCYTE ESTERASE, URINE MODERATE (NEGATIVE); NITRITE,URINE NEGATIVE (NEGATIVE); OCCULT BLOOD,URINE NEGATIVE (NEGATIVE); PROTEIN,URINE NEGATIVE (NEGATIVE); UROBILINOGEN,URINE 0.2 (NORMAL) E.U./dL (NORMAL)
[2023-02-14 13:02] LABS: CLARITY,URINE CLEAR (CLEAR)
[2023-02-14 13:12] LABS: BACTERIA,URINE Few /HPF (None Seen); RBC,URINE None Seen /HPF (0-5); SQUAMOUS EPITHELIAL CELL,UR RARE Squamous (<= Few)
[2023-02-14] MEDS ORDERED: cefTRIAXone 2 GM in SODIUM CHLORIDE 0.9% MINIBAG 100 ML IV STA (13:44)
[2023-02-14 15:33] VITALS: BP 156/69
== END 2023-02-14 15:32 | disposition home or self-care (01) ==
LOC: EDUNIT# → ED 11:02
DX: I95.1 Orthostatic hypotension (principal); N30.00 Acute cystitis without hematuria; I10 Essential (primary) hypertension; J44.9 Chronic obstructive pulmonary disease, unspecified; F03.90 Unspecified dementia, unspecified severity, without behavioral disturbance, psychotic disturbance, mood disturbance, and anxiety; Z79.899 Other long term (current) drug therapy; Z79.82 Long term (current) use of aspirin
CPT/HCPCS: 36415; 80053; 81001; 81003; 83690; 84484; 85025; 87086; 93005; 96365; 99284

== ENCOUNTER 2023-03-01 15:24 | Outpatient (CLI) | payer MEDICARE | END 2023-03-01 15:25 | disposition EMS.NT | LOC: EMS 15:24 | DX: Z03.89 Encounter for observation for other suspected diseases and conditions ruled out (principal) ==

== ENCOUNTER 2023-06-08 07:51 | Outpatient (CLI) | payer MEDICARE ==
[2023-06-08 15:15] LABS: BASOPHILS # (AUTO) 0.1 10^3/uL (0.0-0.1); BASOPHILS % (AUTO) 0.8 %; EOSINOPHILS # (AUTO) 0.4 10^3/uL (0.0-0.7); EOSINOPHILS % (AUTO) 5.4 %; HCT - HEMATOCRIT 36.5 % (42.0-52.0); HGB - HEMOGLOBIN 11.5 g/dL (14.0-18.0); LYMPHOCYTES # (AUTO) 2.1 10^3/uL (1.5-3.5); LYMPHOCYTES % (AUTO) 27.1 %; MEAN CORPUSCULAR HEMOGLOBIN 30.7 pg (27.0-31.0); MEAN CORPUSCULAR HGB CONC 31.5 g/dL (32.0-36.0); MEAN CORPUSCULAR VOLUME 97.6 fL (80.0-94.0); MEAN PLATELET VOLUME 10.7 fL (7.4-11.4); MONOCYTES # (AUTO) 0.8 10^3/uL (0.0-1.0); MONOCYTES % (AUTO) 10.9 %; NEUTROPHILS # (AUTO) 4.3 10^3/uL (1.5-6.6); NEUTROPHILS % (AUTO) 55.7 %; PLT - PLATELET COUNT 164 10^3/uL (130-450); RED BLOOD COUNT 3.74 10^6/uL (4.70-6.10); RED CELL DISTRIBUTION WIDTH 12.6 % (12.0-15.0); WHITE BLOOD COUNT 7.6 x10^3/uL (4.8-10.8)
[2023-06-08 15:44] LABS: ALBUMIN 3.7 g/dL (3.2-5.5); ALBUMIN/GLOBULIN RATIO 1.7 (1.0-2.2); BILIRUBIN,TOTAL 0.5 mg/dL (0.2-1.0); CALCIUM 9.1 mg/dL (8.5-10.3); CREATININE 1.3 mg/dL (0.6-1.3); POTASSIUM 4.4 mmol/L (3.5-4.5); TOTAL PROTEIN 5.9 g/dL (6.4-8.9)
== END 2023-06-08 07:52 | disposition home or self-care (01) ==
LOC: LAB.S 07:51
PROVIDERS: ATTEND Registered Nurse
DX: R10.9 Unspecified abdominal pain (principal)
CPT/HCPCS: 36415; 80053; 85025

== ENCOUNTER 2023-06-09 07:47 | Outpatient (CLI) | payer MEDICARE ==
--- NOTE | 2023-06-09 15:52 | Ultrasound Report ---
PROCEDURE: Abdomen Complete INDICATIONS: INGUINAL MASS, ABD DISCOMFORT TECHNIQUE: Real-time scanning was performed of the abdominal and retroperitoneal organs, with image documentatio n. COMPARISON: None. FINDINGS: Liver: Liver is normal in size and heterogeneous in echotexture. Gallbladder: Oval echogenic focus is present measuring 9 mm. Wall thickness is normal measuring 4 mm. Biliary ducts: Intrahepatic bile ducts are non-dilated. Extrahepatic bile duct caliber measures 4 m m. Normal is 6-7 mm or less in diameter, or 10 mm or less post-cholecystectomy. Pancreas: Visualized portions of the pancreas are sonographically normal. Spleen: Spleen is normal in size and homogeneous in echotexture. Kidneys: Kidneys are normal in size and echotexture. Right kidney measures 10.9 cm long; left kidne y measures 9.1 cm long. No hydronephrosis or nephrolithiasis. No solid masses. Simple cysts are pre sent bilaterally the largest on the right measuring 3.3 x 2.6 x 2.7 cm. Aorta: Visualized aorta is aneurysmal dilation of the distal aorta measuring 6.5 x 7.0 x 6.0 cm. Iliacs: Proximal common iliac arteries are normal in caliber at less than 2.5 cm. IVC: Intrahepatic inferior vena cava is patent. Miscellaneous: No free abdominal fluid. IMPRESSION: Cholelithiasis without imaging evidence of cholecystitis. Distal aortic aneurysmal dilation. Reviewed by: Angeline Lovelace MD on 06/09/2023 3:51 PM PDT Approved by: Angeline Lovelace MD on 06/09/2023 3:51 PM PDT Station ID: [id number]
--- NOTE | 2023-06-10 18:20 | Ultrasound Report ---
PROCEDURE: Pelvic Limited or F/U INDICATIONS: INGUINAL MASS, ABD DISCOMFORT TECHNIQUE: Real-time transabdominal scanning was performed of the pelvic organs, with image documentation. COMPARISON: None. FINDINGS: There is a left inguinal hernia hernia containing fat and bowel. The wall defect measures approximate ly 3.3 x 3.1 cm. IMPRESSION: Sizable left inguinal hernia containing fat and bowel. Reviewed by: Dominic Guerra MD on 06/10/2023 6:19 PM PDT Approved by: Dominic Guerra MD on 06/10/2023 6:19 PM PDT Station ID: [id number]
== END 2023-06-09 07:48 | disposition home or self-care (01) ==
LOC: DI 07:47
PROVIDERS: ATTEND Registered Nurse
DX: K80.20 Calculus of gallbladder without cholecystitis without obstruction (principal); I71.40 Abdominal aortic aneurysm, without rupture, unspecified; K40.90 Unilateral inguinal hernia, without obstruction or gangrene, not specified as recurrent

== ENCOUNTER 2023-06-12 13:11 | Outpatient (CLI) | payer MEDICARE | END 2023-06-12 13:12 | disposition home or self-care (01) | LOC: LAB.S 13:11 | PROVIDERS: ATTEND Registered Nurse | DX: D64.9 Anemia, unspecified (principal) | CPT/HCPCS: 36415; 82728 ==

== ENCOUNTER 2023-07-17 10:43 | Day surgery (SDC) | payer MEDICARE ==
[~2023-07-17 10:43] MED LIST changes: -ACETAMINOPHEN 1,000 MG/100 ML 100 ML IV ONE; +BUPIVACAINE 0.25% PF 30 ML VIAL ONE; +LIDOCAINE 1%-EPI 1:100000 20 ML MDV ONE; +LIDOCAINE-MPF 1% 30 ML VIAL ONE; -VANCOMYCIN 1 GM VIAL ONE; +ceFAZolin 2 GM VIAL ONE
--- NOTE | 2023-07-17 11:33 | HISTORY & PHYSICAL EXAMINATION ---
Chief Complaint - Chief Complaint Chief Complaint: painful left groin bulge History of Present Illness - History Obtained From Records Reviewed: yes History obtained from: pt Exam Limitations: none - History of Present Illness HPI Comment/Other: large left inguinal hernia with bowel History - Past Medical History Cardiovascular: reports: None Respiratory: reports: COPD Neuro: reports: Dementia, Peripheral neuropathy Endocrine/Autoimmune: reports: None GI: reports: C.difficile : reports: Benign prostate hypertrophy, Renal insuffiency HEENT: reports: Chronic vision loss, Chronic hearing loss Psych: reports: Anxiety Musculoskeletal: reports: Gout, Chronic back pain Derm: reports: Eczema, Other MRSA Hx?: Yes - Past Surgical History General: reports: Colonoscopy Ortho: reports: Spine surgery, Other HEENT: reports: Cataracts Derm: reports: Skin cancer surgery - Family & Social History Family History: Mother: , Father: , COPD/Emphysema Family History Comment/Other: pt report his father from COPD and his mother at age 99 yrs. he had two daughters. he is living with his at [place]. his daughter is close to him to live. Living Situation: With spouse/s.o. Social History Notes: pt is reported to have cigarett smoking in the past. he denies alcohol and drug issue. - POLST Patient has POLST: Yes POLST Status: DNR Meds/Allgy - Home Medications Home Medications: Ambulatory Orders Medication Instructions Recorded Confirmed Tamsulosin [Flomax] 0.4 mg PO DAILY 12/24/15 07/15/23 Aspirin [Adult Aspirin] 81 mg PO DAILY 09/03/18 07/15/23 Citalopram Hydrobromide 40 mg PO DAILY 09/07/18 07/15/23 [Citalopram HBr] Ascorbic Acid [Vitamin C] 1,000 mg PO DAILY 07/15/23 07/15/23 Cholecalciferol (Vitamin D3) 1,000 unit PO DAILY 07/15/23 07/15/23 [Vitamin D3] Cyanocobalamin (Vitamin B-12) 1,000 mcg PO DAILY 07/15/23 07/15/23 [Vitamin B-12] Mv-Mn/Om3/Dha/Epa/Fish/Lut/Shanta 1 each PO DAILY 07/15/23 07/15/23 [Ocuvite Adult 50 Plus Softgel] - Allergies Allergies/Adverse Reactions: Allergies Allergy/AdvReac Type Severity Reaction Status Date / Time trichloromonofluoromethane Allergy Unknown Rash Verified 07/16/23 13:04 [From Castblast] Review of Systems - Other Findings Other Findings: 10 pt ros as above otherwise unremarkable Exam - Vital Signs Vital Signs: Vital Signs x48h Temp Pulse Resp BP Pulse Ox 07/17/23 11:06 36 C L 74 18 145/105 H 99 - Physical Exam General Appearance: positive: No acute distress, Alert Eyes Bilateral: positive: PERRL, EOMI, No scleral icterus ENT: positive: No signs of dehydration Neck: positive: No JVD, Trachea midline Respiratory: positive: No respiratory distress, Breath sounds nml Cardiovascular: positive: Regular rate & rhythm Abdomen: positive: Other (left inguinal hernia) Neurologic/Psychiatric: positive: Oriented x3 Conclusion/Plan - Problem List (1) Inguinal hernia of left side without obstruction or gangrene Conclusion/Plan: plan open repair with mesh. parq held and consent obtained
[2023-07-17] MEDS ORDERED: BUPIVACAINE 0.25% PF 30 ML VIAL SUBQ ONE (12:15)
[2023-07-17] MEDS ORDERED: fentaNYL 100 MCG/2 ML VIAL ONE (12:23)
[2023-07-17] MEDS ORDERED: LACTATED RINGERS 1,000 ML IV ONE (13:57)
[2023-07-17] MEDS ORDERED: HYDROcod/ACETAM 5/325 MG TABLET PO PRN (14:05)
[2023-07-17] MEDS ORDERED: ePHEDrine 50 MG/ML VIAL IVP PRN (14:09)
[2023-07-17] MEDS ORDERED: MORPHINE 2 MG/ML CARPUJECT IVP PRN (14:09)
[2023-07-17] MEDS ORDERED: ATROPINE ABBOJECT 1 MG/10 ML SYRINGE IVP PRN (14:09)
[2023-07-17] MEDS ORDERED: NALOXONE 0.4 MG/ML VIAL IVP PRN (14:09)
[2023-07-17] MEDS ORDERED: HYDROmorphone 0.5 MG/0.5 ML SYRINGE IVP PRN (14:09)
[2023-07-17] MEDS ORDERED: fentaNYL 100 MCG/2 ML VIAL IVP PRN (14:09)
[2023-07-17] MEDS ORDERED: ONDANSETRON 4 MG/2 ML VIAL IVP PRN (14:09)
--- NOTE | 2023-07-17 14:14 | OPERATIVE REPORT ---
Operative Report - General Procedure Date: 07/17/23 Planned Procedure: open left inguinal hernia repair with mesh Pre-Op Diagnosis: left inguinal hernia with bowel Procedure Performed: open left inguinal hernia repair with mesh extra degree difficulty given 6 x 6 cm hernia with bowel and difficulty reducing Post Op Diagnosis: large direct left inguinal hernia with bowel - Procedure Note Anesthesia Technique: Local, MAC Pathology: nerve and fat removed. not sent Estimated Blood Loss (mL): 2 Drain/Tube Type: Other (none) Indications: symptomatic hernia with bowel entrapment Findings: as above. stretched ilioinguinal nerve excised Complications: none - Other Other Information/Narrative: Patient was properly identified brought to the operating room and placed in supine position. Sequential compression devices were placed. General endotracheal anesthesia was induced. He was prepped and draped in a sterile fashion and given preoperative antibiotics. Local anesthetic was given throughout the procedure. A 5 cm incision was made in the direction of Mickie's lines just cephalad of the pubic tubercle. Dissection proceeded with cutting current cautery. The superficial epigastric vein was identified clamped divided and tied with 3-0 Vicryl. Dissection proceeded down to the aponeurosis. The aponeurosis was opened in the direction of its fibers and extended to the external ring. Cord structures were mobilized and brought up. The ileal inguinal nerve was stretched over a very large at least 6 x 6 cm hernia bulge. The nerve was excised back to musculature. With a moderate amount of difficulty the large hernia sac was mobilized away from surrounding tissue. The hernia sac was eventually reduced and Reduced with a sponge stick. The hernia sac was then closed with a 2-0 silk pursestring suture. Cord structures were mobilized and brought up. There was no indirect inguinal hernia. Preperitoneal fat was removed. The base was tied with 2 O vicryl. Polypropylene mesh was cut to size and with tails. The mesh was secured with multiple interrupted 0 Ethibond sutures. She was placed along the pubic tubercle, Andrea's ligament area and along the shelving border of Poupart's ligament. Sutures were placed medially along the abdominal wall musculature and internal oblique. The medial tail of the mesh was secured to the shelving border of Poupart's ligament with 3 interrupted 0 ethibond sutures recreating the internal ring of appropriate size. An additional suture was placed in the crotch of the mesh recreating an internal ring of appropriate size. Aponeurosis was closed with a running 2-0 Vicryl suture. The opposite was closed with interrupted 3-0 Vicryl suture. Buried interrupted subdermal 3-0 Vicryl sutures were then placed. And was closed with a running 4-0 Monocryl subcuticular suture. Dressing was applied. Patient was awakened and brought to recovery in good condition.
--- NOTE | 2023-07-17 14:20 | ANESTHESIA POST OP EVALUATION ---
Anesthesia Post Eval - Post Anesthesia Eval Vitals: Last Vital Signs Temp 36.9 C 07/17/23 14:15 Pulse 60 07/17/23 14:15 Resp 17 07/17/23 14:15 BP 156/89 H 07/17/23 14:15 Pulse Ox 100 07/17/23 14:15 O2 Flow Rate CV Function Including HR & BP: Stable Pain Control: Satisfactory Nausea & Vomiting: Negative Mental Status: Baseline Respiratory Status: Airway Patent Hydration Status: Satisfactory Anesthesia Complications: None
[2023-07-17] MEDS ORDERED: LACTATED RINGERS 1,000 ML IV SCH (15:00)
[2023-07-17 15:03] VITALS: BP 158/76; O2SAT 99
== END 2023-07-17 10:44 | disposition home or self-care (01) ==
LOC: SDS 10:43
PROVIDERS: ATTEND Surgery
DX: K40.90 Unilateral inguinal hernia, without obstruction or gangrene, not specified as recurrent (principal); J44.9 Chronic obstructive pulmonary disease, unspecified
CPT/HCPCS: 49505; 93005; C1781; J7120

== ENCOUNTER 2023-07-22 11:58 | Emergency (ER) | payer MEDICARE ==
--- NOTE | 2023-07-22 12:16 | ED Physician Documentation ---
History of Present Illness - Stated complaint Stated Complaint: POST SURGICAL COMP - Chief complaint Chief Complaint: General - History obtained from History obtained from: Patient, Family - Additonal information Additional information: 88-year-old gentleman with dementia and hard of hearing presents with his and daughter. He had left inguinal hernia repair with mesh by Dr. Mittal on the first of this month. They noted swelling in the left groin with increased pain today. He has not moved his bowels today, but did move them yesterday and he says its not abnormal for him not to poop on any given day. No vomiting. PD PAST MEDICAL HISTORY - Past Medical History Cardiovascular: None Respiratory: COPD Neuro: Dementia, Peripheral neuropathy Endocrine/Autoimmune: None GI: C.difficile : Benign prostate hypertrophy, Renal insuffiency HEENT: Chronic vision loss, Chronic hearing loss Psych: Anxiety Musculoskeletal: Gout, Chronic back pain Derm: Eczema, Other - Past Surgical History Past Surgical History: Yes General: Colonoscopy Ortho: Spine surgery, Other HEENT: Cataracts Derm: Skin cancer surgery - Present Medications Home Medications: Ambulatory Orders Medication Instructions Recorded Confirmed Tamsulosin [Flomax] 0.4 mg PO DAILY 12/24/15 07/17/23 Aspirin [Adult Aspirin] 81 mg PO DAILY 09/03/18 07/17/23 Citalopram Hydrobromide 40 mg PO DAILY 09/07/18 07/17/23 [Citalopram HBr] Ascorbic Acid [Vitamin C] 1,000 mg PO DAILY 07/15/23 07/17/23 Cholecalciferol (Vitamin D3) 1,000 unit PO DAILY 07/15/23 07/17/23 [Vitamin D3] Cyanocobalamin (Vitamin B-12) 1,000 mcg PO DAILY 07/15/23 07/17/23 [Vitamin B-12] Mv-Mn/Om3/Dha/Epa/Fish/Lut/Shanta 1 each PO DAILY 07/15/23 07/17/23 [Ocuvite Adult 50 Plus Softgel] HYDROcod/ACETAM 5/325 [Sassafras 5/325] 1 each PO Q6H PRN #25 tablet 07/17/23 - Allergies Allergies/Adverse Reactions: Allergies Allergy/AdvReac Type Severity Reaction Status Date / Time trichloromonofluoromethane Allergy Unknown Rash Verified 07/22/23 12:10 [From Castblast] - Social History Does the pt smoke?: No Smoking Status: Never smoker Does the pt drink ETOH?: No Does the pt have substance abuse?: No - Immunizations Immunizations are current?: No Immunizations: TDAP >10years/unknown - POLST Patient has POLST: Yes POLST Status: DNR PD ED PE NORMAL - Vitals Vital signs reviewed: Yes - General General: Alert and oriented X 3, No acute distress - Abdomen Abdomen: Normal bowel sounds, Soft, Non tender, Other (A lot of bruising and swelling in the left groin which feels more like seroma or hematoma compared to a recurrent hernia.) - Neuro Neuro: Other (Very hard of hearing and mildly demented) Results - Vitals Vitals: Vital Signs - 24 hr 07/22/23 07/22/23 12:00 14:10 Heart Rate 76 72 Respiratory 19 14 Rate Blood Pressure 120/60 130/63 O2 Saturation 96 97 Oxygen O2 Source Room air - Labs Labs: Laboratory Tests 07/22/23 07/22/23 12:30 12:39 WBC 6.9 RBC 3.23 L Hgb 10.1 L Hct 31.9 L MCV 98.8 H MCH 31.3 H MCHC 31.7 L RDW 12.4 Plt Count 195 MPV 10.4 Neut # (Auto) 4.5 Lymph # (Auto) 1.4 L [place] # (Auto) 0.8 Eos # (Auto) 0.2 Baso # (Auto) 0.1 Absolute Nucleated RBC 0.00 Nucleated RBC % 0.0 Sodium 137 Potassium 5.0 H Chloride 105 Carbon Dioxide 30 Anion Gap 2.0 L BUN 22 H Creatinine 1.2 Estimated GFR (MDRD) 57 L Glucose 93 Calcium 9.1 PD Medical Decision Making - ED course ED course: 88-year-old gentleman with a postoperative lump in his left groin shortly after a inguinal hernia repair with mesh. Clinically more consistent with hematoma or seroma, but recurrent hernia is a concern and as such a CT was done showing that this probably represents hematoma and there is no evidence of recurrence of the hernia. 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 This was discussed with the patient's daughter who is a nurse who has worked in vascular past and she will arrange for a vascular consult. Departure - Departure Disposition: 01 Home, Self Care Clinical Impression: Postoperative hematoma Qualifiers: Surgical complication system/body Area: genitourinary Procedure type: non- genitourinary Qualified Code(s): N99.841 - Postprocedural hematoma of a genitourinary system organ or structure following other procedure AAA (abdominal aortic aneurysm) Qualifiers: Abdominal aorta location: infrarenal aorta Presence of rupture: without rupture Qualified Code(s): I71.43 - Infrarenal abdominal aortic aneurysm, without rupture Condition: Good Record reviewed to determine appropriate education?: Yes Instructions: ED Aneurysm Abdominal Aortic Stable, ED Hematoma Follow-Up: Kelly Rich ARNP [Primary Care Provider] - Comments: The swelling in the left groin represents postoperative hematoma and should resolve on its own, keep your postoperative appointment as scheduled. We also found today that he has an aortic aneurysm and you should definitely talk to your primary care nurse practitioner about an expedited vascular referral for it which measures 6.4 x 7 x 8.3 cm. Forms: PCP List
[2023-07-22] MEDS ORDERED: HYDROmorphone 0.5 MG/0.5 ML SYRINGE IVP STA (12:21)
[2023-07-22 12:47] LABS: BASOPHILS # (AUTO) 0.1 10^3/uL (0.0-0.1); BASOPHILS % (AUTO) 0.9 %; EOSINOPHILS # (AUTO) 0.2 10^3/uL (0.0-0.7); EOSINOPHILS % (AUTO) 2.7 %; HCT - HEMATOCRIT 31.9 % (42.0-52.0); HGB - HEMOGLOBIN 10.1 g/dL (14.0-18.0); LYMPHOCYTES # (AUTO) 1.4 10^3/uL (1.5-3.5); LYMPHOCYTES % (AUTO) 19.8 %; MEAN CORPUSCULAR HEMOGLOBIN 31.3 pg (27.0-31.0); MEAN CORPUSCULAR HGB CONC 31.7 g/dL (32.0-36.0); MEAN CORPUSCULAR VOLUME 98.8 fL (80.0-94.0); MEAN PLATELET VOLUME 10.4 fL (7.4-11.4); MONOCYTES # (AUTO) 0.8 10^3/uL (0.0-1.0); MONOCYTES % (AUTO) 11.1 %; NEUTROPHILS # (AUTO) 4.5 10^3/uL (1.5-6.6); NEUTROPHILS % (AUTO) 65.4 %; PLT - PLATELET COUNT 195 10^3/uL (130-450); RED BLOOD COUNT 3.23 10^6/uL (4.70-6.10); RED CELL DISTRIBUTION WIDTH 12.4 % (12.0-15.0); WHITE BLOOD COUNT 6.9 x10^3/uL (4.8-10.8)
[2023-07-22 13:00] LABS: CALCIUM 9.1 mg/dL (8.5-10.3); CREATININE 1.2 mg/dL (0.6-1.3)
--- NOTE | 2023-07-22 15:56 | CT Report ---
PROCEDURE: ABDOMEN/PELVIS W INDICATIONS: IV only, LIH repair, now fluis L groin CONTRAST: 100mL Omni 300 TECHNIQUE: After the administration of IV contrast, 5 mm thick sections acquired from the diaphragms to the symp hysis. 5 mm thick coronal and sagittal reformats were acquired. For radiation dose reduction, the f ollowing was used: automated exposure control, adjustment of mA and/or kV according to patient size. COMPARISON: Ultrasound abdomen 05/10/2023 FINDINGS: Image quality: Excellent. Lung bases and heart: Unremarkable. Liver: No solid mass. Gallbladder and biliary tree: Luminal stone is present without wall thickening. Spleen: No splenomegaly. Pancreas: No pancreatic ductal dilation. Adrenals: No adrenal nodule. Kidneys and ureters: No hydronephrosis. No renal cystic lesion which requires follow up. No solid mas s. Simple bilateral renal cysts. Bowel and peritoneum: No bowel distension. No pathologic free fluid. Hiatal hernia is present. Lymph nodes: No central or retroperitoneal adenopathy. Vessels: Fusiform distal infrarenal aortic aneurysmal dilation is present measuring 6.4 x 7.0 x 8.3 c m. It currently measures 8.3 cm craniocaudal compared to 6.5 cm on prior exam. AP and transverse dime nsions are unchanged. PELVIS Reproductive organs: Unremarkable. Bladder: No abnormal wall thickening, accounting for underdistension. Pelvic lymph nodes: No pelvic adenopathy by size criteria. Bones: No aggressive osseous abnormality. Other: Inflammatory change with focus of hyperdensity measuring 5.3 x 3.9 cm, Hounsfield units 37 is present in the left groin. Adjacent borderline lymph nodes are present. IMPRESSION: Significant infrarenal aortic aneurysmal dilation with mild increase in size in the craniocaudal dime nsion as above. Inflammatory change with focus of what appears to be a small hematoma in the subcutaneous fat of the left groin. Scattered borderline enlarged lymph nodes are present. Reviewed by: Angeline Lovelace MD on 07/22/2023 3:55 PM PDT Approved by: Angeline Lovelace MD on 07/22/2023 3:55 PM PDT Station ID: [id number]
[2023-07-22 16:00] VITALS: BP 130/63; O2SAT 97
[2023-07-22] MEDS ORDERED: iohexoL-300 100 ML VIAL IVP ONE (19:41)
== END 2023-07-22 16:22 | disposition home or self-care (01) ==
LOC: ED 11:58
DX: N99.841 Postprocedural hematoma of a genitourinary system organ or structure following other procedure (principal); I71.43 Infrarenal abdominal aortic aneurysm, without rupture; F03.90 Unspecified dementia, unspecified severity, without behavioral disturbance, psychotic disturbance, mood disturbance, and anxiety
CPT/HCPCS: 36415; 74177; 80048; 85025; 96374; 99282; 99284; J1170; Q9967

== ENCOUNTER 2023-10-19 07:56 | Outpatient (CLI) | payer MEDICARE | END 2023-10-19 07:57 | disposition EMS.NT | LOC: EMS 07:56 | DX: Z03.89 Encounter for observation for other suspected diseases and conditions ruled out (principal) ==

== ENCOUNTER 2023-10-30 17:16 | Outpatient (CLI) | payer MEDICARE | END 2023-10-30 23:59 | disposition EMS.NT | LOC: EMS 17:16 | DX: Z03.89 Encounter for observation for other suspected diseases and conditions ruled out (principal) ==

== ENCOUNTER 2023-12-06 21:58 | Outpatient (CLI) | payer MEDICARE | END 2023-12-06 21:59 | disposition short-term general hospital (02) | LOC: EMS 21:58 | DX: R07.89 Other chest pain (principal); R06.09 Other forms of dyspnea; R51.9 Headache, unspecified; M25.519 Pain in unspecified shoulder | CPT/HCPCS: A0425; A0427 ==